=== PATIENT | female | born 1940 | race Caucasian/White ===

== ENCOUNTER 2025-04-05 17:04 | Inpatient (IN) ==
--- NOTE | 2025-04-05 17:34 | Emergency Department Note ---
Impression & Plan Atrial flutter with rapid ventricular response ED Provider Note Provider: Kimani Ortiz MD CHIEF COMPLAINT: Referred HISTORY OF PRESENT ILLNESS: Patient is a 84-year-old female past medical history including GERD, osteoarthritis, hypertension, rheumatoid arthritis, CKD, endometritis presenting here today referred by her outpatient doctor. Patient states over the last week or 2 she had a bit of dizziness although has had dizziness her whole life. Evidently had a syncopal episode a few days ago. Was seen in the [facility] clinic yesterday and diagnosed with atrial flutter. Was prescribed metoprolol but has not taken it yet. Evidently was in contact with the office regarding side effect profile and they referred her here for evaluation given that she has been experiencing some dizziness and had the syncopal event and is on duloxetine. Patient denies significant chest pain or shortness of breath. Maybe a little bit of leg swelling. Denies significant exercise intolerance. Patient again states that her entire life she has had some dizziness at times that has passed out before. Denies feeling dizzy or lightheaded right now of significance. Denies numbness or tingling anywhere. Has not taken any of the metoprolol prescribed yesterday is not on aspirin or other blood thinners. Denies other cardiac issues. Evidently had an endometrial/cervical finding they thought might be cancer but turned out to be an infection that she took antibiotics for last month. PAST MEDICAL HISTORY: As noted above MEDICATIONS: Reviewed home medications but she states she is unsure if she is taken the mall. SOCIAL HISTORY: PHYSICAL EXAM: GENERAL: alert and oriented in no acute distress on stretcher Head: normocephalic and atraumatic EYES: No injection, discharge or icterus. EOMI. NECK: Trachea midline. ENT: Mucous membranes pink and moist. LUNGS: Airway patent. No retractions. Breath sounds clear HEART: Regular tachycardic rate and rhythm. No chest wall tenderness ABDOMEN: Soft and non-tender, without guarding or rebound. SKIN: Acyanotic, warm, dry EXTREMITIES: Without swelling, tenderness or deformity NEUROLOGICAL: No focal deficits. No aphasia. No facial droop or slurred speech. Ambulatory. EK bpm atrial flutter. No PVC. QTc 393. No ST segment elevation or depression. CONTINUOUS CARDIAC MONITORING: was ordered and showed a heart rate of 130s-140 bpm in atrial flutter Patient's laboratory studies and imaging reviewed. Differential includes Premature contractions, electrolyte abnormality, cardiac dysrhythmia, thyroid dysfunction, pulmonary embolism, infection, gastrointestinal, as well as other pathologies. IMPRESSION/MEDICAL DECISION MAKING: Patient appears to be in rapid atrial flutter. Minimal variability with this. Diagnosed with this yesterday and did have a cardiac echo yesterday without evidence of pulmonary hypertension or significant depressed EF at that time. No chest pain or shortness of breath. Relates she has had chronic dizziness and syncope at times and did have a syncopal episode with days ago. Evidently there were some concerns regarding possibly having her on duloxetine and metoprolol. This point she is hypertensive and tachycardic and at her age of 84 I feel the trial of some kind of AV melvin agent is quite reasonable as she will not be able to sustain this kind of elevated heart rate indefinitely. Discussed with her that all medications to control her heart rate can possibly cause dizziness. Basic blood work and troponin is sent. TSH from yesterday is normal. Chest x- ray obtained is does have little swelling of the legs but doubt significant pulmonary edema or fluid overload. 1 view chest x-ray per my review interpretation without evidence significant pulmonary edema, pleural effusion, pneumothorax, or pneumonia. Several doses of IV metoprolol was ordered without much improvement of heart rate. No significant anemia. Minimal leukopenia 3.8. No significant anemia hemoglobin 12. Slight hypokalemia 3.2 but no severe electrolyte abnormalities otherwise noted. Normal magnesium. Normal troponin. Given small amount of potassium supplementation here. Started diltiazem drip to see if this would affect some rate control will bring in given the persistent tachycardia/atrial flutter RVR. Patient is admitted given the persistent tachycardia. Will defer to hospitalist team anticoagulation choice going forward. DIAGNOSIS: Rapid atrial flutter DISPOSITION: Hospitalist will evaluate Patient was agreeable with this plan. Critical Care I have personally spent 31 minutes of critical care time in the direct management of this patient. This includes bedside care, interpretation of diagnostic studies, and testing, discussion with consultants, patient, and family members, and other required patient management activities. These 31 minutes is in excess of all separately billable procedures. Past Med/Surg History Problem List (Updated 04/05/25 @ 17:43 by Kimani Ortiz M.D.) Atrial flutter with rapid ventricular response (Acute) Social History Smoking Status: Never smoker Preferred Language: Hungarian Feels Safe at Home: Yes Allergies Allergies Allergy/AdvReac Type Severity Reaction Status Date / Time latex Allergy Unknown Unknown Unverified 04/05/25 18:35 Sulfa (Sulfonamide Allergy Unknown Unknown Unverified 04/05/25 18:35 Antibiotics) Home Meds Home Medications Medication Instructions Recorded Confirmed adalimumab 40 mg/0.4 mL 40 mg subcut DIRECTED 04/05/25 04/05/25 subcutaneous pen kit (Humira(CF) Pen) amlodipine 5 mg tablet 5 mg PO DAILY 04/05/25 04/05/25 atorvastatin 40 mg tablet 40 mg PO UD 04/05/25 04/05/25 cranberry 1 tab PO DAILY 04/05/25 04/05/25 duloxetine 30 mg capsule,delayed 30 mg PO DAILY 04/05/25 04/05/25 release famotidine 40 mg tablet 40 mg PO DAILY 04/05/25 04/05/25 folic acid 1 mg tablet 1 mg PO DAILY 04/05/25 04/05/25 hydroxyzine HCl 25 mg tablet 50 mg PO DAILY 04/05/25 04/05/25 leflunomide 20 mg tablet (Arava) 20 mg PO DAILY 04/05/25 04/05/25 losartan 50 mg tablet 50 mg PO DAILY 04/05/25 04/05/25 magnesium 1 tab PO DAILY 04/05/25 04/05/25 metoprolol succinate 25 mg 25 mg PO UD 04/05/25 04/05/25 tablet,extended release 24 hr prednisone 5 mg tablet 5 mg PO DAILY PRN Other 04/05/25 04/05/25 Results & Data (ED) Vital Signs Vital Signs - 24 hr 04/05/25 17:06 04/05/25 17:24 04/05/25 17:29 Temperature 36.1 C L Temperature Source Temporal Artery Scan Pulse Rate 139 H 140 H Pulse Rate [Apical] 138 H Pulse Rate from SpO2 Sensor Respiratory Rate 18 13 Respiratory Effort / Characteristics Non-Labored Spontaneous Non-Labored Spontaneous Respiratory Depth Normal Normal Respiratory Pattern Regular Blood Pressure 157/114 H Blood Pressure [Left Arm] 147/111 H Blood Pressure Mean 128 Blood Pressure Mean [Left Arm] 123 Blood Pressure Position [Left Arm] Semi-fowlers Pulse Oximetry 95 95 Oxygen Delivery Method Room Air Room Air Sepsis Recent Fever Within 48 Hours No Sepsis New/Unexplained Change in Mental Status N/A Sepsis Action Taken by Nursing No Action Required 04/05/25 17:41 04/05/25 17:45 04/05/25 17:51 Temperature Temperature Source Pulse Rate 138 H 134 H Pulse Rate [Apical] Pulse Rate from SpO2 Sensor 134 H Respiratory Rate 19 Respiratory Effort / Characteristics Respiratory Depth Respiratory Pattern Blood Pressure 160/118 H 153/123 H Blood Pressure [Left Arm] Blood Pressure Mean 134 Blood Pressure Mean [Left Arm] Blood Pressure Position [Left Arm] Pulse Oximetry 94 Oxygen Delivery Method Room Air Sepsis Recent Fever Within 48 Hours Sepsis New/Unexplained Change in Mental Status Sepsis Action Taken by Nursing 04/05/25 17:57 04/05/25 17:58 04/05/25 18:00 Temperature Temperature Source Pulse Rate 133 H 134 H Pulse Rate [Apical] Pulse Rate from SpO2 Sensor Respiratory Rate 17 Respiratory Effort / Characteristics Respiratory Depth Respiratory Pattern Blood Pressure 147/115 H 142/107 H Blood Pressure [Left Arm] Blood Pressure Mean 113 Blood Pressure Mean [Left Arm] Blood Pressure Position [Left Arm] Pulse Oximetry 94 Oxygen Delivery Method Room Air Sepsis Recent Fever Within 48 Hours Sepsis New/Unexplained Change in Mental Status Sepsis Action Taken by Nursing 04/05/25 18:20 04/05/25 18:21 Temperature Temperature Source Pulse Rate 134 H 130 H Pulse Rate [Apical] Pulse Rate from SpO2 Sensor Respiratory Rate Respiratory Effort / Characteristics Respiratory Depth Respiratory Pattern Blood Pressure 139/109 H Blood Pressure [Left Arm] Blood Pressure Mean Blood Pressure Mean [Left Arm] Blood Pressure Position [Left Arm] Pulse Oximetry Oxygen Delivery Method Sepsis Recent Fever Within 48 Hours Sepsis New/Unexplained Change in Mental Status Sepsis Action Taken by Nursing Laboratory Data 04/05/25 17:27 04/05/25 17:27 Lab Results 04/05/25 Range/Units 17:27 WBC 3.80 L (4.8-10.8) K/ul RBC 4.05 L (4.20-5.40) M/uL Hgb 12.6 (12.0-16.0) g/dl Hct 36.8 L (37.0-47.0) % MCV 90.9 (80.0-100.0) fL MCH 31.1 (25.0-34.0) pg MCHC 34.2 (32.0-36.0) g/dL RDW Std Deviation 42.5 (36.4-46.3) fL RDW Coeff of Titi 12.8 (11.5-14.5) % Plt Count 169 (130-400) K/uL MPV 10.5 (9.4-12.4) fL Immature Gran % (Auto) 0.0 % Neut % (Auto) 37.4 % Lymph % (Auto) 40.3 % [place] % (Auto) 16.8 % Eos % (Auto) 4.2 % Baso % (Auto) 1.3 % Neut # (Auto) 1.42 (1.40-6.50) K/uL Lymph # (Auto) 1.53 (1.20-3.40) K/uL [place] # (Auto) 0.64 H (0.11-0.59) K/uL Eos # (Auto) 0.16 (0.00-0.50) K/uL Baso # (Auto) 0.05 (0.00-0.20) K/uL Immature Gran # (Auto) 0.00 L (0.01-0.20) K/uL PT 10.9 (9.0-12.0) Seconds INR 1.0 (0.9-1.1) APTT 24 (21-31) Seconds PTT Ratio 0.9 Sodium 140 (136-145) mmol/L Potassium 3.2 L (3.5-5.1) mmol/L Chloride 105 (98-107) mmol/L Carbon Dioxide 27 (21-32) mmol/L Anion Gap 8 (3-11) BUN 11 (6-23) mg/dl Creatinine 1.18 (0.6-1.2) mg/dl Est Cr Clr Drug Dosing 31.8 ml/min eGFR 46.12 BUN/Creatinine Ratio 9.3 L (10-20) Glucose 95 (70-99(Fasting)) mg/dl Calcium 9.7 (8.6-10.3) mg/dl Magnesium 1.9 (1.7-2.4) mg/dl Total Bilirubin 0.9 (0.2-1.0) mg/dl AST 17 (13-39) U/L ALT 11 (7-52) U/L Alkaline Phosphatase 52 (34-104) U/L Troponin I High Sens 11.9 (0-14) pg/ml Total Protein 6.6 (6.0-8.3) gm/dl Albumin 4.3 (3.4-5.0) gm/dl Globulin 2.3 L (2.5-4.0) gm/dl Albumin/Globulin Ratio 1.9 (0.9-2) TSH 4.079 (0.300-4.500) uIu/ml Administered Medications Diltiazem HCl 125 mg/ Dextrose 125 mls @ 5 mls/hr IV .Q24H [facility]; Protocol Stop: 05/05/25 18:14 Last Admin: 04/05/25 18:26 Dose: 5 mg/hr, 5 mls/hr Documented By: KIYA Co-signed By: LAZARUS Discontinued Medications Metoprolol Tartrate (Metoprolol Tartrate 1 Mg/Ml Vial) 5 mg IV NOW STA Stop: 04/05/25 17:35 Last Admin: 04/05/25 17:41 Dose: 5 mg Documented By: JILLIAN Metoprolol Tartrate (Metoprolol Tartrate 1 Mg/Ml Vial) 5 mg IV NOW STA Stop: 04/05/25 17:56 Last Admin: 04/05/25 17:58 Dose: 5 mg Documented By: KIYA Miscellaneous (Stat Iv Infusion Titration Per Protocol) 1 each N/A NOW STA Stop: 04/05/25 18:10 Last Admin: 04/05/25 18:26 Dose: Not Given Documented By: KIYA Potassium Chloride (Potassium Chloride Crtab 20 Meq Tabcr) 40 meq PO NOW STA Stop: 04/05/25 18:24 Last Admin: 04/05/25 18:46 Dose: 40 meq Documented By: KIYA Discharge Plan Visit Data Chief Complaint: Abnormal Labs/Diagnostic Testing Stated Complaint: REF, ABN RESULTS ED Provider: Kimani Ortiz Discharge Problem: Atrial flutter with rapid ventricular response Patient Disposition: Being Evaluated by Hospitalist Condition: Fair Forms Stand Alone Forms: [facility] [employer] Prescriptions Prescriptions: No Action losartan 50 mg tablet 50 mg PO DAILY atorvastatin 40 mg tablet 40 mg PO UD Rx Instructions: original: 40mg po daily. per pt she doesnt take medication everyday famotidine 40 mg tablet 40 mg PO DAILY prednisone 5 mg tablet 5 mg PO DAILY PRN (Reason: Other) leflunomide [Arava] 20 mg tablet 20 mg PO DAILY hydroxyzine HCl 25 mg tablet 50 mg PO DAILY Rx Instructions: per pt she taakes 3 metoprolol succinate 25 mg tablet extended release 24 hr 25 mg PO UD Rx Instructions: hasnt started yet and isnt sure she will be taking duloxetine 30 mg capsule,delayed release(DR/EC) 30 mg PO DAILY Humira(CF) Pen 40 mg/0.4 mL pen injector kit 40 mg subcut DIRECTED Rx Instructions: every other tuesday amlodipine 5 mg tablet 5 mg PO DAILY folic acid 1 mg tablet 1 mg PO DAILY cranberry 1 tab PO DAILY magnesium 1 tab PO DAILY Rx Instructions: otc Referrals Referrals: Nikos Muñiz MD [Primary Care Provider] -
[2025-04-05] MEDS: METOPROLOL TARTRATE 1 MG/ML VIAL IV STA ×2 (17:41→17:58)
[2025-04-05 17:55] LABS: Basophils # (auto) 0.05 K/uL (0.00-0.20); Basophils % (auto) 1.3 %; Eosinophils # (auto) 0.16 K/uL (0.00-0.50); Eosinophils % (auto) 4.2 %; Hematocrit (blood only) 36.8 % (37.0-47.0); Hemoglobin 12.6 g/dl (12.0-16.0); Lymphocytes # (auto) 1.53 K/uL (1.20-3.40); Lymphocytes % (auto) 40.3 %; Mean Corpuscular Hemoglobin 31.1 pg (25.0-34.0); Mean Corpuscular Hgb Conc 34.2 g/dL (32.0-36.0); Mean Corpuscular Volume 90.9 fL (80.0-100.0); Mean Platelet Volume 10.5 fL (9.4-12.4); Monocytes # (auto) 0.64 K/uL (0.11-0.59); Monocytes % (auto) 16.8 %; Neutrophils # (auto) 1.42 K/uL (1.40-6.50); Neutrophils % (auto) 37.4 %; Platelet Count 169 K/uL (130-400); RDW Coefficient of Variation 12.8 % (11.5-14.5); RDW Standard Deviation 42.5 fL (36.4-46.3); Red Blood Count 4.05 M/uL (4.20-5.40)
[2025-04-05 18:03] LABS: Partial Thromboplastin Ratio 0.9; Partial Thromboplastin Time 24 Seconds (21-31); Prothrombin Time 10.9 Seconds (9.0-12.0)
[2025-04-05 18:09] LABS: Albumin Globulin Ratio 1.9 (0.9-2); Albumin Level 4.3 gm/dl (3.4-5.0); BUN Creatinine Ratio 9.3 (10-20); Bilirubin,Total 0.9 mg/dl (0.2-1.0); Calcium 9.7 mg/dl (8.6-10.3); Creatinine Clr Calc Pharmacy 31.8 ml/min; Globulin 2.3 gm/dl (2.5-4.0); Magnesium 1.9 mg/dl (1.7-2.4); Potassium 3.2 mmol/L (3.5-5.1); Total Protein 6.6 gm/dl (6.0-8.3)
[2025-04-05 18:14] LABS: Troponin I High Sensitivity 11.9 pg/ml (0-14)
[2025-04-05 18:24] LABS: Thyroid Stimulating Hormone 4.079 uIu/ml (0.300-4.500)
[2025-04-05] MEDS: STAT IV Infusion **Titration per Protocol STA (18:26)
[2025-04-05] MEDS: dilTIAZem HCL 125 MG in DEXTROSE 5% 100 ML IV SCH (18:26)
[2025-04-05] MEDS: POTASSIUM CHLORIDE CRTAB 20 MEQ TABCR PO STA (18:46)
[2025-04-05] MEDS: Heparin IV Adult Wt-Based Standard w/ INITIAL Bolus Protocol IV STA (19:21)
--- NOTE | 2025-04-05 19:28 | XRay Report ---
EXAM: XR chest 1V portable CLINICAL HISTORY: Dysrhythmia, dizzy. TECHNIQUE: An X-ray image of the chest is obtained in AP projection. COMPARISON: No prior studies are available for comparison. FINDINGS: Pulmonary Parenchyma: Bilateral increased vascular markings are likely due to a congestive process. No evidence of consolidation, collapse No evidence of right pleural effusion or pleural thickening. The left costophrenic angle is obscured by the cardiomegaly Heart and Mediastinum: cardiomegaly with congested vascular hilum Bony Thorax: Bony thorax appears intact without fractures or deformities. Soft Tissues: Soft tissues overlying the chest wall are unremarkable. IMPRESSION: Cardiomegaly with Bilateral increased vascular markings likely of a congestive process ,clinical correlation is recommended. Electronically signed by Rufus Newman 04-05-2025 7:28 PM
[2025-04-05] MEDS: METOPROLOL SUCC 25MG EXT REL TAB PO SCH (19:52)
--- NOTE | 2025-04-05 20:01 | History & Physical Report ---
Date of Service April 05, 2025 Assessment & Plan (1) Atrial flutter with rapid ventricular response: (2) HTN (hypertension): (3) HLD (hyperlipidemia): (4) Rheumatoid arthritis: Plan 84 year old F presented to the ED with dizziness and a recent diagnosis of atrial flutter that was discovered yesterday as an outpatient with her PCP. Last week she had a syncopal episode where she awoke in the middle of the night with her and harpreet quickly out of bed and passed out. Additional past medical history includes hypertension, rheumatoid arthritis, CKD stage III, OA and GERD. Reportedly she had a failed stress test years ago and followed with a heart catheterization which she reports was normal about 20 years ago. She denies tobacco and alcohol use. ECHO 04/04/25: EF 65 to 69% with mild aortic valve sclerosis and moderate mitral regurgitation. No leukocytosis, hypokalemic 3.2, normal mag and TSH along with other unremarkable electrolytes. No transaminitis noted. A few weeks ago she did undergo an endometrial biopsy which was negative for malignancy. She was started on a Cardizem drip at 5 mg/h. She was given metoprolol 5 mg IV x 2 and her heart rate remains in the 130s. Heparin drip without bolus was ordered along with metoprolol 25 mg p.o. twice daily. Formal cardiology consult placed. new onset atrial flutter with RVR: Acute New diagnosis 04/04/2025 Echo 04/04/2025; 65 to 69%, mild aortic valve sclerosis, moderate moderate MR Prescribed metoprolol 25 mg p.o. daily; prescription not filled due to concern of home medication adverse reaction per pharmaceutical pamphlet Reports failed stress test greater than 20 years ago with normal heart catheterization Heart rate 130s to 140s in ED serum mag 1.9. Troponin 11.9 Diltiazem drip initiated in ED Metoprolol 5 mg IV x 2 given in ED; ordered metoprolol 25 mg p.o. twice daily Started on heparin drip without bolus N.p.o. after midnight Cardiology consult placed; full code Hypokalemia: Serum potassium 3.2; replaced with 40 p.o. KCl in ED Trend BMP in a.m. HTN: Chronic Takes losartan and amlodipine; hold for now +1 LE edema; suspect related to amlodipine HLD: Chronic Takes atorvastatin; continue Low threshold to discontinue given age versus benefits Rheumatoid arthritis: Chronic Takes Arava; DMARD and follows with rheumatology Disposition: PCP: Dr. Burns CODE STATUS: Full code VTE prophylaxis: Started on heparin drip in ED I spent a total of 79 minutes coordinating, documenting, and providing care for this patient excluding time spent inthe performance of separately billed services or time spent by another provider/QHP. History of Present Illness Chief Complaint: atrial flutter Primary Care Provider: Nikos Muñiz MD Ms. King is an 84 year old female that presented to the ED as she was experiencing dizziness and had a recent diagnosis of atrial flutter Discovered yesterday as an outpatient With her PCP. Last week she had a syncopal episode where she awoke in the middle of the night with her and harpreet quickly out of bed and passed out. Additional past medical history includes hypertension, rheumatoid arthritis, CKD stage III, OA and GERD. Reportedly she had a failed stress test years ago and followed with a heart catheterization which she reports was normal about 20 years ago. She denies tobacco and alcohol use. With her new diagnosis of atrial flutter she was prescribed metoprolol but she has not taken any dosing yet as she read in the medication insert that there could be interactions with her current medication list. An echocardiogram was performed yesterday with an EF 65 to 69% with mild aortic valve sclerosis and moderate mitral regurgitation. In the ED no leukocytosis, hypokalemic 3.2, normal mag and TSH along with other unremarkable electrolytes. No transaminitis noted. A few weeks ago she did undergo an endometrial biopsy which was negative for malignancy. Pt denies CHOWDHURY, SOB, chest pain, abdominal pain or tenderness, dysuria, bowel changes. On examination, she is AAOx4 and able to Hold meaningful conversation without acute or apparent distress. Patient with irregular heart sounds. Lungs without adventitious sounds, some slight swelling +1 lower extremity edema; suspect this is related to her home medication of amlodipine. In the ED she was noted to be in rapid a flutter heart rate 140s. She was started on a Cardizem drip at 5 mg/h. She was given metoprolol 5 mg IV x 2 and her heart rate remains in the 130s. Heparin drip without bolus was ordered along with metoprolol 25 mg p.o. twice daily. Formal cardiology consult placed. Patient will be admitted for further evaluation and management of her new onset A-fib trill flutter. Please see A/P for further details. Allergies Allergy/AdvReac Type Severity Reaction Status Date / Time latex Allergy Unknown Unknown Verified 04/05/25 19:53 Sulfa (Sulfonamide Allergy Unknown Unknown Verified 04/05/25 19:53 Antibiotics) Home Medications Medication Instructions Recorded Confirmed Type adalimumab 40 mg/0.4 mL 40 mg subcut DIRECTED 04/05/25 04/05/25 History subcutaneous pen kit (Humira(CF) Pen) amlodipine 5 mg tablet 5 mg PO DAILY 04/05/25 04/05/25 History atorvastatin 40 mg tablet 40 mg PO UD 04/05/25 04/05/25 History cranberry 1 tab PO DAILY 04/05/25 04/05/25 History duloxetine 30 mg capsule,delayed 30 mg PO DAILY 04/05/25 04/05/25 History release famotidine 40 mg tablet 40 mg PO DAILY 04/05/25 04/05/25 History folic acid 1 mg tablet 1 mg PO DAILY 04/05/25 04/05/25 History hydroxyzine HCl 25 mg tablet 50 mg PO DAILY 04/05/25 04/05/25 History leflunomide 20 mg tablet (Arava) 20 mg PO DAILY 04/05/25 04/05/25 History losartan 50 mg tablet 50 mg PO DAILY 04/05/25 04/05/25 History magnesium 1 tab PO DAILY 04/05/25 04/05/25 History metoprolol succinate 25 mg 25 mg PO UD 04/05/25 04/05/25 History tablet,extended release 24 hr prednisone 5 mg tablet 5 mg PO DAILY PRN Other 04/05/25 04/05/25 History Past Med/Surg History Problem List (Updated 04/05/25 @ 19:53 by MARTIN Malone) Rheumatoid arthritis HLD (hyperlipidemia) HTN (hypertension) OA (osteoarthritis) of hip Atrial flutter with rapid ventricular response (Acute) Surgical History (Updated 04/05/25 @ 19:53 by MARTIN Malone) No pertinent past surgical history Social History Smoking Status: Never smoker Preferred Language: Scottish Feels Safe at Home: Yes Review of Systems Review of Systems: Neuro: (-) Falls, trauma, slurred speech HEENT: (-) CHOWDHURY, dizziness, dysphagia, visual or auditory changes CV: (-) CP, palpitations, swelling Resp: (-) SOB GI: (-) appetite changes, N/V/D, bowel changes : (-) urinary changes Skin: (-) rashes Psych: (-) anxiety, depression Physical Exam Physical Exam: Neuro: AAOx4, PERRLA, no aphagia, memory changes, CNII-XII grossly intact HEENT: head normocephalic, moist mucus membranes CV:Irreguarly irregular (-) M/G/R, (-) edema, cap refill < 3 seconds Resp: Lungs CTA in all fowler. On RA GI: Abdomen S/NT/ND, Ax4 bowel sounds, (-) CVA tenderness Musculoskeletal: 5/5 B/L UE strength, 5/5 B/L LE strength. No gait disturbance Skin: (-) rashes , (-) erythema. Psych: euthymic mood Results & Data Results & Data Vital Signs (Past 12 Hours) Vital Signs Temp Pulse Pulse Resp BP BP Pulse Ox 04/05/25 19:08 130 H 20 137/111 H 04/05/25 18:21 130 H 139/109 H 04/05/25 18:20 134 H 04/05/25 18:00 142/107 H 04/05/25 17:58 134 H 147/115 H 04/05/25 17:57 133 H 17 94 04/05/25 17:51 134 H 19 94 04/05/25 17:45 153/123 H 04/05/25 17:41 138 H 160/118 H 04/05/25 17:29 138 H 13 147/111 H 95 04/05/25 17:24 140 H 04/05/25 17:06 36.1 C L 139 H 18 157/114 H 95 O2 Del Method 04/05/25 19:08 04/05/25 18:21 04/05/25 18:20 04/05/25 18:00 04/05/25 17:58 04/05/25 17:57 Room Air 04/05/25 17:51 Room Air 04/05/25 17:45 04/05/25 17:41 04/05/25 17:29 Room Air 04/05/25 17:24 04/05/25 17:06 Room Air Laboratory Results Short CBC 04/05/25 Range/Units 17:27 WBC 3.80 L (4.8-10.8) K/ul Hgb 12.6 (12.0-16.0) g/dl Hct 36.8 L (37.0-47.0) % Plt Count 169 (130-400) K/uL BMP 04/05/25 17:27 Sodium 140 Potassium 3.2 L Chloride 105 Carbon Dioxide 27 BUN 11 Creatinine 1.18 Glucose 95 Calcium 9.7 Liver Function 04/05/25 Range/Units 17:27 Total Bilirubin 0.9 (0.2-1.0) mg/dl AST 17 (13-39) U/L ALT 11 (7-52) U/L Alkaline Phosphatase 52 (34-104) U/L Albumin 4.3 (3.4-5.0) gm/dl Diagnostic Findings Chest X-Ray 04/05/25 17:14 EXAM: XR chest 1V portable CLINICAL HISTORY: Dysrhythmia, dizzy. TECHNIQUE: An X-ray image of the chest is obtained in AP projection. COMPARISON: No prior studies are available for comparison. FINDINGS: Pulmonary Parenchyma: Bilateral increased vascular markings are likely due to a congestive process. No evidence of consolidation, collapse No evidence of right pleural effusion or pleural thickening. The left costophrenic angle is obscured by the cardiomegaly Heart and Mediastinum: cardiomegaly with congested vascular hilum Bony Thorax: Bony thorax appears intact without fractures or deformities. Soft Tissues: Soft tissues overlying the chest wall are unremarkable. IMPRESSION: Cardiomegaly with Bilateral increased vascular markings likely of a congestive process ,clinical correlation is recommended. Electronically signed by Rufus Newman 04-05-2025 7:28 PM Code Status & VTE Plan Code Status full code in the event of cardiac or respiratory arrest VTE Prophylaxis Plan VTE Prophylaxis will be ordered: Yes Supervising Physician Co-Signing Physician Notes Patient seen and examined independently. Discussed with above provider. Patient presents to the hospital after she was found to have atypical atrial flutter as outpatient. She underwent echocardiogram which showed EF within normal limits. Patient is started on Cardizem drip, heparin drip; plan to obtain cardiology consult in AM. I have reviewed the advanced practitioner's documentation, and I agree with, and take responsibility for the plan of care I spent a total of 30 minutes coordinating, documenting, and providing care for this patient excluding time spent in the performance of separately billed services. All of the aforementioned completed while collaborating with the assigned advanced practitioner for a full treatment plan
[2025-04-05] MEDS: HEPARIN 25000 UNIT/500 ML D5W 25,000 UNITS/500 ML BAG IV SCH ×2 (20:05→20:21)
[2025-04-05] MEDS: HEPARIN SOD (PORCINE) 1000 UNIT/ML IV ONE (20:05)
[2025-04-05] MEDS: Heparin IV Adult Wt-Based Low-Dose *NO* INITIAL Bolus Protocol IV STA (20:05)
[2025-04-05] MEDS ORDERED: MAGNESIUM HYDROXIDE SUSP 30 ML UDC PO PRN (21:59)
[2025-04-05] MEDS ORDERED: ONDANSETRON INJ 2 MG/ML 2 ML VIAL IV PRN (21:59)
[2025-04-05] MEDS ORDERED: POLYETHYLENE (MIRALAX) 17 GM PACK PO PRN (21:59)
[2025-04-05] MEDS ORDERED: ALUMINUM/MAGNESIUM SUSP 30 ML UDC PO PRN (21:59)
[2025-04-06 03:06] LABS: ANTI-Xa, UFH(UnfractionatedHep 0.34 IU/ml (0.3-0.7)
[2025-04-06 06:30] LABS: Hematocrit (blood only) 35.9 % (37.0-47.0); Hemoglobin 12.2 g/dl (12.0-16.0); Mean Corpuscular Hemoglobin 30.7 pg (25.0-34.0); Mean Corpuscular Volume 90.2 fL (80.0-100.0); Mean Platelet Volume 10.5 fL (9.4-12.4); Platelet Count 148 K/uL (130-400); RDW Coefficient of Variation 12.8 % (11.5-14.5); RDW Standard Deviation 42.5 fL (36.4-46.3); Red Blood Count 3.98 M/uL (4.20-5.40); White Blood Count 3.14 K/ul (4.8-10.8)
[2025-04-06 07:14] LABS: ANTI-Xa, UFH(UnfractionatedHep 0.38 IU/ml (0.3-0.7)
[2025-04-06 07:15] LABS: BUN Creatinine Ratio 9.8 (10-20); Calcium 9.1 mg/dl (8.6-10.3); Creatinine Clr Calc Pharmacy 36.6 ml/min; Magnesium 1.9 mg/dl (1.7-2.4); Potassium 3.6 mmol/L (3.5-5.1)
--- NOTE | 2025-04-06 08:41 | Cardiology Consultation ---
Date of Consultation April 06, 2025 Assessment & Plan (1) Atrial flutter with rapid ventricular response: (2) HTN (hypertension): Plan Patient admitted with atrial flutter rapid ventricular response. Duration unknown. Initially treated with IV Lopressor and IV diltiazem with improved heart rates Since admission. She was transition to metoprolol succinate 25 mg twice daily. Started on IV heparin for stroke prophylaxis [id number] score 4 (Female, age, HTN). anticoagulation therapy recommended. Likely transition to Eliquis 5 mg BID. Recent echo on 04/04 with preserved LVEF, moderate MR. No indication to repeat at this time. Replace potassium for goal 4-5. Additional supplements received this morning. Replace magnesium goal of 2.0. 1 gram ordered now. HR's are fairly well controlled at rest. Continue metoprolol succinate 25 mg BID. Titrate as needed/tolerated. If HR's remain controlled, and patient asymptomatic, would anticipate patient could be discharged on metoprolol and Eliquis. Consider cardioversion after 4 weeks of anticoagulation therapy, vs ongoing rate control strategy. In regards to HTN, amlodipine and losartan held on admission when she was receiving IV diltiazem and initiation of metoprolol Would likely resume losartan on discharge. Could hold amlodipine if needed. Further recommendations pending review and discussion with Dr. Montejo Case discussed with Dr. Montejo I spent a total of 60 minutes on the date of service in preparation, delivery, and documentation of the care provided to this patient, excluding any time spent in the performance of separately billed services. Claudia Valdez PA-C Department of Cardiology, [facility] This chart was completed in part utilizing Speech Voice Recognition Software. Grammatical errors, random word insertions, pronoun errors, and incomplete sentences are an occasional consequence of this system due to software limitations, ambient noise, and hardware issues. Any formal questions or concerns about the content, text, or information contained within the body of this dictation should be directly addressed to the provider for clarification. Supervising Physician Co-Signing Physician Notes Attending attestation: Case reviewed with the advanced practitioner. I have personally performed a history and physical examination on the patient. I have reviewed the advanced practitioner's documentation on the date of service referenced in note, and I agree with, and take responsibility for the plan of care. Atrial fibrillation persists on telemetry. Rate improved. Diltiazem discontinued. Patient without overt recognition of being in atrial fibrillation. Will transition from heparin to Eliquis this evening at 2100. Continue metoprolol for rate control. Case discussed with Dr. Shepherd for the purpose of coordination of care. I spent a total of 20 minutes coordinating, documenting, and providing care for this patient excluding time spent in the performance of separately billed services or time spent by another provider. Josue Montejo, History of Present Illness Reason for Consultation: new onset atrial flutter [facility]ing Physician[facility] Attending Physician: Dr. Montejo History of Present Illness Patient is an 84-year-old female who presented to [facility] at the direction of her PCP office with [facility] due to findings of atrial fibrillation rapid ventricular response on recent echocardiogram and EKG as an outpatient. Initially patient was started on metoprolol but had not yet picked up prescription when she was referred to ER. Echo was ordered after patient had a syncopal episode several weeks. Patient described a long history of dizziness and "fainting" dating back to when she was young. This was not new for her, but echo was ordered as precaution. Patient had an echo on 04/04/2025 at [facility] which demonstrated normal LV systolic function with ejection fraction 65%, Mild aortic sclerosis without stenosis, moderate mitral regurgitation, no pulmonary hypertension. Patient was in atrial fibs/flutter at a rate of 140 during the study. She also had an EKG on 04/04 at [facility] demonstrating Atrial flutter with rapid ventricular response at 138 bpm. Patient denies a history of cardiovascular problems.No history of coronary artery disease, heart failure, arrhythmias, or valvular disease. History includes: Hypertension Dyslipidemia Rheumatoid arthritis On Humira Polymyalgia rheumatica Chronic kidney disease for which she follows with nephrology, Baseline creatinine 1.1-1.2 Upon arrival to the emergency room on 04/05/2025, patient was found to be in persistent atrial flutter at a rate of 140 bpm, similar to outpatient testing on 04/04/2025. She was started on IV heparin for anticoagulation and stroke prophylaxis. She was initially treated with IV Lopressor and then started on IV diltiazem for rate control. Heart rates greatly improved with IV diltiazem and once heart rates were below 100 bpm, IV diltiazem was turned off. She was also started on metoprolol succinate 25 mg twice daily. Potassium was low at 3.2 on arrival, potassium supplemented. Potassium remains low normal this morning at 3.6. She was given additional potassium this morning on 04/06. Magnesium was also slightly low at 1.9. HS troponin negative. She was hypertensive on arrival, BP trending down this morning. She normally takes amlodipine and losartan. These were held on arrival. At time of consult, patient resting in chair comfortably. HR's 80-110's She is asymptomatic with the afib. She denies recent chest pain or SOB. She notes dizziness at times, but feels this is relatively unchanged. Last syncopal episode was approx 2 weeks ago, but also apparently fairly frequent during her life. Allergies Allergy/AdvReac Type Severity Reaction Status Date / Time latex Allergy Unknown Unknown Verified 04/05/25 19:53 Sulfa (Sulfonamide Allergy Unknown Unknown Verified 04/05/25 19:53 Antibiotics) Home Medications Medication Instructions Recorded Confirmed Type adalimumab 40 mg/0.4 mL 40 mg subcut DIRECTED 04/05/25 04/05/25 History subcutaneous pen kit (Humira(CF) Pen) amlodipine 5 mg tablet 5 mg PO DAILY 04/05/25 04/05/25 History atorvastatin 40 mg tablet 40 mg PO UD 04/05/25 04/05/25 History cranberry 1 tab PO DAILY 04/05/25 04/05/25 History duloxetine 30 mg capsule,delayed 30 mg PO DAILY 04/05/25 04/05/25 History release famotidine 40 mg tablet 40 mg PO DAILY 04/05/25 04/05/25 History folic acid 1 mg tablet 1 mg PO DAILY 04/05/25 04/05/25 History hydroxyzine HCl 25 mg tablet 50 mg PO DAILY 04/05/25 04/05/25 History leflunomide 20 mg tablet (Arava) 20 mg PO DAILY 04/05/25 04/05/25 History losartan 50 mg tablet 50 mg PO DAILY 04/05/25 04/05/25 History magnesium 1 tab PO DAILY 04/05/25 04/05/25 History metoprolol succinate 25 mg 25 mg PO UD 04/05/25 04/05/25 History tablet,extended release 24 hr prednisone 5 mg tablet 5 mg PO DAILY PRN Other 04/05/25 04/05/25 History Patient History Surgical History (Updated 04/05/25 @ 19:53 by MARTIN Malone) No pertinent past surgical history Social History Smoking Status: Never smoker Hx Alcohol Use: No Hx Substance Use: No Preferred Language: Amharic Communication Ability: Effective Lab Aid Required: No Beliefs That Will Affect Care: None Current Living Situation: Spouse Feels Safe at Home: Yes Safety Concerns: Feels Safe At This Time Assistive Devices: Glasses Review of Systems Review of Systems: All systems reviewed & are unremarkable except as noted in HPI & below Physical Exam Constitutional: WD/WN, vitals as above average body habitus; no acute distress Neck: trachea midline, no thyromegaly Respiratory: normal respiratory effort, lungs clear to auscultation Cardiovascular: Rate/Rhythm: + irregularly irregular Heart Sounds: no murmur Vessels: no JVD Extremities: no edema Gastrointestinal (Abdomen): normal bowel sounds, soft, nontender, no hepatosplenomegaly Musculoskeletal: no cyanosis or clubbing, extremities motor strength 5/5 Neurologic: PERRL, EOMI, accommodation nl, no face palsy, no dysarthria Results & Data Vital Signs (Past 12 Hours) Vital Signs Temp Pulse Pulse Resp BP BP BP 04/06/25 07:51 36.4 C L 62 16 129/83 04/06/25 07:27 65 04/06/25 03:58 36.6 C 68 17 135/97 04/06/25 00:20 121 H 04/05/25 23:51 36.6 C 64 17 118/78 04/05/25 22:00 36.8 C 115 H 18 146/108 H 04/05/25 21:19 110 H 04/05/25 21:03 112 H 20 137/99 Pulse Ox O2 Del Method 04/06/25 07:51 93 Room Air 04/06/25 07:27 04/06/25 03:58 93 Room Air 04/06/25 00:20 04/05/25 23:51 93 Room Air 04/05/25 22:00 92 Room Air 04/05/25 21:19 04/05/25 21:03 96 Room Air Laboratory Results Cardiac Enzymes 04/05/25 Range/Units 17:27 AST 17 (13-39) U/L Troponin I High Sens 11.9 (0-14) pg/ml Coagulation 04/05/25 Range/Units 17:27 PT 10.9 (9.0-12.0) Seconds APTT 24 (21-31) Seconds CBC 04/05/25 04/06/25 Range/Units 17:27 06:17 WBC 3.80 L 3.14 L (4.8-10.8) K/ul RBC 4.05 L 3.98 L (4.20-5.40) M/uL Hgb 12.6 12.2 (12.0-16.0) g/dl Hct 36.8 L 35.9 L (37.0-47.0) % Plt Count 169 148 (130-400) K/uL Neut # (Auto) 1.42 (1.40-6.50) K/uL Lymph # (Auto) 1.53 (1.20-3.40) K/uL [place] # (Auto) 0.64 H (0.11-0.59) K/uL Eos # (Auto) 0.16 (0.00-0.50) K/uL Baso # (Auto) 0.05 (0.00-0.20) K/uL Comprehensive Metabolic Panel 04/05/25 04/06/25 Range/Units 17:27 06:17 Sodium 140 139 (136-145) mmol/L Potassium 3.2 L 3.6 (3.5-5.1) mmol/L Chloride 105 107 (98-107) mmol/L Carbon Dioxide 27 25 (21-32) mmol/L BUN 11 10 (6-23) mg/dl Creatinine 1.18 1.02 (0.6-1.2) mg/dl Glucose 95 100 H (70-99(Fasting)) mg/dl Calcium 9.7 9.1 (8.6-10.3) mg/dl AST 17 (13-39) U/L ALT 11 (7-52) U/L Alkaline Phosphatase 52 (34-104) U/L Total Protein 6.6 (6.0-8.3) gm/dl Albumin 4.3 (3.4-5.0) gm/dl Intake and Output 04/05/25 04/06/25 04/06/25 22:59 06:59 14:59 Intake Total 59.833 / 59.833 138.667 / 138.667 Balance 59.833 / 59.833 138.667 / 138.667 Intake: IV 59.833 / 59.833 138.667 / 138.667 Heparin 28500 Unit/500 ml D5w 138.667 / 138.667 25,000 units In 500 ml @ 650 UNITS/HR 13 mls/hr IV .Q24H MITESH Rx#:[id number] dilTIAZem HCL 125 mg In 59.833 / 59.833 Dextrose 5% 100 ml @ 5 MG/HR 5 mls/hr IV .Q24H MITESH Rx#: [id number] Other: # Unmeasured Voids 1 Weight 66.6 kg 68.1 kg Weight Measurement Method [facility] Diagnostic Findings Telemetry reviewed: Atrial fib/flutter with variable rates in the 60-130's. She is rate controlled at rest, HR's increase with ambulation EKG reviewed from 04/05/2025 at 1720: Atrial flutter with rapid ventricular response at 140 bpm EKG reviewed from 04/06/2025 at 6:33 AM Atrial fibrillation/flutter with borderline slow ventricular rates Outpatient echo report reviewed dated 04/04/25 Interpretation Summary Patient tachycardic during the study rate 140 beats per minute possibly atrial fibrillation/flutter The left ventricular cavity size is normal. The LV wall thickness is borderline increased (concentric). The left ventricular wall motion is normal. The qualitative LV ejection fraction is 65-69% (normal). The left atrium is moderately enlarged. Mild aortic valve sclerosis is present. Moderate mitral regurgitation is present. Mild tricuspid regurgitation is present. There is no evidence of pulmonary hypertension. Medications Administered Current Inpatient Medications Acetaminophen (Acetaminophen 325 Mg Tab) 650 mg PO Q4H PRN PRN Reason: Pain or Fever Stop: 05/05/25 21:58 Al Hydrox/Mg Hydrox/Simethicone (Aluminum/Magnesium Susp 30 Ml Udc) 15 ml PO Q4H PRN PRN Reason: Dyspepsia Stop: 05/05/25 21:58 Atorvastatin Calcium (Atorvastatin 40 Mg Tab) 40 mg PO DAILY [facility] Stop: 05/06/25 08:59 Duloxetine HCl (Duloxetine Hcl 30 Mg Cap) 30 mg PO DAILY [facility] Stop: 05/06/25 08:59 Last Admin: 04/06/25 09:52 Dose: 30 mg Famotidine (Famotidine 40 Mg Tablet) 40 mg PO DAILY [facility] Stop: 05/06/25 08:59 Last Admin: 04/06/25 09:57 Dose: 40 mg Hydroxyzine HCl (Hydroxyzine Hcl 25 Mg Tab) 50 mg PO DAILY [facility] Stop: 05/06/25 08:59 Diltiazem HCl 125 mg/ Dextrose 125 mls @ 0 mls/hr IV .Q0M [facility]; Protocol Stop: 05/05/25 18:14 Last Titration: 04/06/25 06:24 Dose: 0 mg/hr, 0 mls/hr Heparin Sodium/Dextrose (Heparin 04951 Unit/500 Ml D5w) 25,000 units in 500 mls @ 13 mls/hr IV .Q24H [facility]; Protocol Stop: 05/05/25 19:59 Last Titration: 04/06/25 07:01 Dose: 650 units/hr, 13 mls/hr Leflunomide (Leflunomide 10 Mg Tab) 20 mg PO DAILY [facility] Stop: 05/06/25 08:59 Last Admin: 04/06/25 09:52 Dose: 20 mg Magnesium Hydroxide (Magnesium Hydroxide Susp 30 Ml Udc) 30 ml PO Q12H PRN PRN Reason: Constipation Stop: 05/05/25 21:58 Metoprolol Succinate (Metoprolol Succ 25mg Ext Rel Tab) 25 mg PO BID [facility] Stop: 05/05/25 19:09 Last Admin: 04/06/25 09:53 Dose: 25 mg Ondansetron HCl (Ondansetron Inj 2 Mg/Ml 2 Ml Vial) 4 mg IV Q6H PRN PRN Reason: Nausea Stop: 05/05/25 21:58 Polyethylene Glycol (Polyethylene (Miralax) 17 Gm Pack) 17 gm PO DAILY PRN PRN Reason: Constipation Stop: 05/05/25 21:58 (2) HTN (hypertension) Hypertension type: primary hypertension Qualified Code(s): I10 - Essential (primary) hypertension
[2025-04-06] MEDS: POTASSIUM CHLORIDE CRTAB 20 MEQ TABCR PO STA (09:51)
[2025-04-06] MEDS: DULoxetine HCL 30 MG CAP PO SCH (09:52)
[2025-04-06] MEDS: LEFLUNOMIDE 10 MG TAB PO SCH (09:52)
[2025-04-06] MEDS: FAMOTIDINE 40 MG TABLET PO SCH (09:57)
[2025-04-06] MEDS ORDERED: Nursing to Pharmacy Communication SCH (10:15)
[2025-04-06] MEDS: ATORVASTATIN 40 MG TAB PO SCH ×2 (11:11→20:35)
[2025-04-06] MEDS: hydrOXYzine HCl 25 MG TAB PO SCH ×2 (11:11→20:35)
[2025-04-06] MEDS: MAGNESIUM SULFATE / D5W 1 GM/100 ML BAG IV ONE (11:28)
--- NOTE | 2025-04-06 12:13 | Hospitalist Progress Note ---
Date of Service April 06, 2025 Assessment & Plan (1) Atrial flutter with rapid ventricular response: Plan: 84 year old F presented to the ED with dizziness and a recent diagnosis of atrial flutter that was discovered yesterday as an outpatient with her PCP. Last week she had a syncopal episode where she awoke in the middle of the night with her and harpreet quickly out of bed and passed out. Additional past medical history includes hypertension, rheumatoid arthritis, CKD stage III, OA and GERD. Reportedly she had a failed stress test years ago and followed with a heart catheterization which she reports was normal about 20 years ago. She denies tobacco and alcohol use. ECHO 04/04/25: EF 65 to 69% with mild aortic valve sclerosis and moderate mitral regurgitation. No leukocytosis, hypokalemic 3.2, normal mag and TSH along with other unremarka ble electrolytes. No transaminitis noted. A few weeks ago she did undergo an endometrial biopsy which was negative for malignancy. She was started on a Cardizem drip at 5 mg/h. She was given metoprolol 5 mg IV x 2 and her heart rate remains in the 130s. Heparin drip without bolus was ordered along with metoprolol 25 mg p.o. twice daily. Formal cardiology consult placed. New onset atrial flutter with RVR: Now in atrial fibrillation Acute New diagnosis 04/04/2025 Echo 04/04/2025; 65 to 69%, mild aortic valve sclerosis, moderate moderate MR Prescribed metoprolol 25 mg p.o. daily; prescription not filled due to concern of home medication adverse reaction per pharmaceutical pamphlet Reports failed stress test greater than 20 years ago with normal heart catheterization Heart rate 130s to 140s in ED Serum mag 1.9. Troponin 11.9 Started with intravenous diltiazem in the emergency room and the rate was controlled and later on diltiazem was discontinued Metoprolol 5 mg IV x 2 given in ED; ordered metoprolol 25 mg p.o. twice daily Started on heparin drip without bolus Appreciate cardiology input and recommendation Eliquis has been started and heparin will be discontinued Continue with metoprolol 25 mg twice daily Will have outpatient cardio conversion in about 4 to 6 weeks as per pharmaceutical scientist Syncopal episode Happened to be last week at home in the middle of the night Likely secondary to postural hypotension Will monitor in the hospital Will get orthostasis (2) HTN (hypertension): (3) HLD (hyperlipidemia): (4) Rheumatoid arthritis: Plan Hypokalemia: Serum potassium 3.2; replaced with 40 p.o. KCl in ED Potassium level is 3.6 but will give 40 mill equivalent of potassium p.o. to maintain it HTN: Chronic Takes losartan and amlodipine; hold for now +1 LE edema; suspect related to amlodipine HLD: Chronic Takes atorvastatin; continue Low threshold to discontinue given age versus benefits Rheumatoid arthritis: Chronic Takes Arava; DMARD and follows with rheumatology No acute arthritis involving any of the joints VTE prophylaxis: Started on heparin drip in ED Eliquis has been started and heparin discontinued Disposition: PCP: Dr. Burns CODE STATUS: Full code Admission and Anticipated Discharge Date Admission Date: April 05, 2025 Subjective , 04/06/2025 The patient was seen and examined in telemetry unit She was admitted with a flutter with exertional shortness of breath and chest discomfort Has been feeling a lot better since admission Now in atrial fibrillation and the rate is controlled denies any significant symptoms Review of Systems Review of Systems: All systems reviewed and are unremarkable except as noted below Physical Exam Physical Exam: Sitting on a chair without any acute distress Constitutional: + ill appearing and average body habitus Eyes: PERRL, conjunctivae normal, anicteric sclerae ENMT: external ear and nose normal, oropharynx normal Neck: trachea midline, no thyromegaly Respiratory: no respiratory distress Auscultation: lungs clear to auscultation bilaterally ( minimal crackles at the bases) Cardiovascular: Rate/Rhythm: + irregularly irregular; not tachycardic Heart Sounds: normal S1, normal S2 and + murmur Extremities: no edema Gastrointestinal (Abdomen): Inspection/Auscultation: normal bowel sounds; abdomen not distended Percussion/Palpation: abdomen soft; abdomen nontender Musculoskeletal: Has minimal osteoarthritis/rheumatoid changes but no acute arthritis involving any of the joint Neurologic: normal touch/pain/proprioception and moves all extremities; no focal motor deficits Lymphatic: no cervical or axillary lymphadenopathy Results & Data Results & Data Vital Signs (Past 12 Hours) Vital Signs Temp Pulse Pulse Resp BP Pulse Ox O2 Del Method 04/06/25 07:51 36.4 C L 62 16 129/83 93 Room Air 04/06/25 07:27 65 04/06/25 03:58 36.6 C 68 17 135/97 93 Room Air 04/06/25 00:20 121 H Laboratory Results Short CBC 04/05/25 04/06/25 Range/Units 17:27 06:17 WBC 3.80 L 3.14 L (4.8-10.8) K/ul Hgb 12.6 12.2 (12.0-16.0) g/dl Hct 36.8 L 35.9 L (37.0-47.0) % Plt Count 169 148 (130-400) K/uL BMP 04/05/25 04/06/25 17:27 06:17 Sodium 140 139 Potassium 3.2 L 3.6 Chloride 105 107 Carbon Dioxide 27 25 BUN 11 10 Creatinine 1.18 1.02 Glucose 95 100 H Calcium 9.7 9.1 Liver Function 04/05/25 Range/Units 17:27 Total Bilirubin 0.9 (0.2-1.0) mg/dl AST 17 (13-39) U/L ALT 11 (7-52) U/L Alkaline Phosphatase 52 (34-104) U/L Albumin 4.3 (3.4-5.0) gm/dl Medications Administered Current Inpatient Medications Acetaminophen (Acetaminophen 325 Mg Tab) 650 mg PO Q4H PRN PRN Reason: Pain or Fever Stop: 05/05/25 21:58 Al Hydrox/Mg Hydrox/Simethicone (Aluminum/Magnesium Susp 30 Ml Udc) 15 ml PO Q4H PRN PRN Reason: Dyspepsia Stop: 05/05/25 21:58 Apixaban (Apixaban 5 Mg Tablet) 5 mg PO BID [facility] Stop: 05/06/25 20:59 Atorvastatin Calcium (Atorvastatin 40 Mg Tab) 40 mg PO HS [facility] Stop: 05/06/25 20:59 Duloxetine HCl (Duloxetine Hcl 30 Mg Cap) 30 mg PO DAILY [facility] Stop: 05/06/25 08:59 Last Admin: 04/06/25 09:52 Dose: 30 mg Famotidine (Famotidine 40 Mg Tablet) 40 mg PO DAILY [facility] Stop: 05/06/25 08:59 Last Admin: 04/06/25 09:57 Dose: 40 mg Hydroxyzine HCl (Hydroxyzine Hcl 25 Mg Tab) 50 mg PO HS [facility] Stop: 05/06/25 20:59 Diltiazem HCl 125 mg/ Dextrose 125 mls @ 0 mls/hr IV .Q0M [facility]; Protocol Stop: 05/05/25 18:14 Last Titration: 04/06/25 06:24 Dose: 0 mg/hr, 0 mls/hr Heparin Sodium/Dextrose (Heparin 16494 Unit/500 Ml D5w) 25,000 units in 500 mls @ 13 mls/hr IV .Q24H [facility]; Protocol Stop: 04/06/25 20:59 Last Titration: 04/06/25 07:01 Dose: 650 units/hr, 13 mls/hr Magnesium Sulfate/Dextrose (Magnesium Sulfate / D5w) 1 gm in 100 mls @ 50 mls/hr IV ONE ONE Stop: 04/06/25 12:44 Last Admin: 04/06/25 11:28 Dose: 50 mls/hr Leflunomide (Leflunomide 10 Mg Tab) 20 mg PO DAILY [facility] Stop: 05/06/25 08:59 Last Admin: 04/06/25 09:52 Dose: 20 mg Magnesium Hydroxide (Magnesium Hydroxide Susp 30 Ml Udc) 30 ml PO Q12H PRN PRN Reason: Constipation Stop: 05/05/25 21:58 Metoprolol Succinate (Metoprolol Succ 25mg Ext Rel Tab) 25 mg PO BID [facility] Stop: 05/05/25 19:09 Last Admin: 04/06/25 09:53 Dose: 25 mg Miscellaneous (Heparin Drip- Stop Order) 1 each N/A 2058 ONE Stop: 04/06/25 21:00 Ondansetron HCl (Ondansetron Inj 2 Mg/Ml 2 Ml Vial) 4 mg IV Q6H PRN PRN Reason: Nausea Stop: 05/05/25 21:58 Polyethylene Glycol (Polyethylene (Miralax) 17 Gm Pack) 17 gm PO DAILY PRN PRN Reason: Constipation Stop: 05/05/25 21:58 (2) HTN (hypertension) Hypertension type: primary hypertension Qualified Code(s): I10 - Essential (primary) hypertension
[2025-04-06] MEDS: METOPROLOL TARTRATE 1 MG/ML VIAL IV PRN (17:03)
[2025-04-06] MEDS: APIXABAN 5 MG TABLET PO SCH (20:34)
[2025-04-06] MEDS: HEPARIN DRIP- STOP ORDER ONE (20:34)
[2025-04-07 06:49] LABS: BUN Creatinine Ratio 10.8 (10-20); Calcium 9.1 mg/dl (8.6-10.3); Creatinine Clr Calc Pharmacy 33.6 ml/min; Magnesium 2.2 mg/dl (1.7-2.4); Phosphorus 2.9 mg/dl (2.5-4.9); Potassium 4.2 mmol/L (3.5-5.1)
[2025-04-07] MEDS: FOLIC ACID 1 MG TAB PO SCH (07:48)
[2025-04-07 09:25] LABS: ANTI-Xa, UFH(UnfractionatedHep 0.83 IU/ml (0.3-0.7)
[2025-04-07] MEDS: METOPROLOL SUCC 25MG EXT REL TAB PO ONE (09:46)
--- NOTE | 2025-04-07 12:15 | Hospitalist Progress Note ---
Date of Service April 07, 2025 Assessment & Plan (1) Atrial flutter with rapid ventricular response: (2) HTN (hypertension): (3) HLD (hyperlipidemia): (4) Rheumatoid arthritis: Plan 84 year old F presented to the ED with dizziness and a recent diagnosis of atrial flutter that was discovered yesterday as an outpatient with her PCP. Last week she had a syncopal episode where she awoke in the middle of the night with her and harpreet quickly out of bed and passed out. On presentation to the ED she was found to have in a flutter; was started on Cardizem drip and referred for admission. Atrial flutter with RVR Patient presents with Atrial flutter with rapid ventricular rate Echo 04/04/2025; 65 to 69%, mild aortic valve sclerosis, moderate moderate MR Patient was started on Cardizem drip and heparin drip; referred for admission. Patient currently on metoprolol succinate 50 mg twice daily and Eliquis for stroke prophylaxis. Telemetry shows ventricular rate varying from 80s to 130s; continue monitor on telemetry Hypokalemia: Repleted HTN: Chronic Takes losartan and amlodipine; hold for now +1 LE edema; suspect related to amlodipine Monitor HLD: Takes atorvastatin; continue Rheumatoid arthritis: Chronic Takes Arava; DMARD and follows with rheumatology No acute arthritis involving any of the joints VTE prophylaxis: Eliquis Disposition: PCP: Dr. Burns CODE STATUS: Full code Time spent evaluating patient, direct bedside care, chart review, placing orders, interpretation of diagnostic studies, discussion with consultants, patient, and family members, as well as other required patient management activities is 50 minutes Please note the above document was generated using voice recognition software. It may contain grammatical, syntax or spelling errors. Any formal questions or concerns about the content, text or information contained within the body of this dictation should be directly addressed to the provider for clarification Admission and Anticipated Discharge Date Admission Date: April 05, 2025 Subjective Patient seen and examined at bedside. She reports that she does not feel any palpitation, chest pain, dizziness or lightheadedness. Telemetry shows atrial fibrillation with ventricular rate in 80s to 130s Review of Systems Review of Systems: All systems reviewed & are unremarkable except as noted in Subjective Physical Exam Physical Exam: Constitutional: WD/WN, vitals as above, NAD, sitting up in bed, pleasant, conversing easily Respiratory: normal respiratory effort, lungs clear to auscultation, no wheeze, rales, rhonchi. Normal insp/exp effort, no accessory muscle use Cardiovascular: irregular, no murmur, no edema Vessels: no JVD or carotid bruit Chest: normal inspection of chest Abdomen: normal bowel sounds, soft, nontender, no hepatosplenomegaly Musculoskeletal: no cyanosis or clubbing, extremities motor strength 5/5 Skin: no rashes, warm and dry normal turgor Neurologic: PERRL, EOMI, accommodation nl, no face palsy, no dysarthria CN's II- XI intact bilaterally and moves all extremities Psychiatric: A+Ox3, euthymic affect Results & Data Results & Data Vital Signs (Past 12 Hours) Vital Signs Temp Pulse Pulse Resp BP Pulse Ox O2 Del Method 04/07/25 11:15 36.6 C 130 H 18 130/90 93 Room Air 04/07/25 07:39 36.4 C L 121 H 20 119/84 94 Room Air 04/07/25 07:22 89 04/07/25 03:00 36.7 C 123 H 18 135/90 96 Room Air 04/07/25 00:15 36.5 C 127 H 18 103/76 95 Room Air (2) HTN (hypertension) Hypertension type: primary hypertension Qualified Code(s): I10 - Essential (primary) hypertension
--- NOTE | 2025-04-07 12:37 | Cardiology Progress Note ---
Date of Service April 07, 2025 Assessment & Plan (1) Atrial flutter with rapid ventricular response: (2) HTN (hypertension): Plan 04/06/25 Patient admitted with atrial flutter rapid ventricular response. Duration unknown. Initially treated with IV Lopressor and IV diltiazem with improved heart rates Since admission. She was transition to metoprolol succinate 25 mg twice daily. Started on IV heparin for stroke prophylaxis [id number] score 4 (Female, age, HTN). anticoagulation therapy recommended. Likely transition to Eliquis 5 mg BID. Recent echo on 04/04 with preserved LVEF, moderate MR. No indication to repeat at this time. Replace potassium for goal 4-5. Additional supplements received this morning. Replace magnesium goal of 2.0. 1 gram ordered now. HR's are fairly well controlled at rest. Continue metoprolol succinate 25 mg BID. Titrate as needed/tolerated. If HR's remain controlled, and patient asymptomatic, would anticipate patient could be discharged on metoprolol and Eliquis. Consider cardioversion after 4 weeks of anticoagulation therapy, vs ongoing rate control strategy. In regards to HTN, amlodipine and losartan held on admission when she was receiving IV diltiazem and initiation of metoprolol Would likely resume losartan on discharge. Could hold amlodipine if needed. 04/07/25 Patient with persistent atrial flutter with variable rates Since stopping IV diltiazem yesterday, her HR's have trended upwards and more tachycardic. Increase metoprolol to 50 mg BID today. She remains asymptomatic. Eliquis initiated at 5 mg BID for stroke prophylaxis. Hopefully we can get her HR's improved with BB therapy and then consider DCCV in 4 weeks after apprioriate anticoagualtion. However, if HR's do not improve with BB, there is a chance she will require RAJAN/CV prior to discharge Tuesday. She is not eager to pursue this option given that she is asymptomatic, however it may be difficult to get her HR's down with this flutter. Further recommendations pending review and discussion with Dr. Montejo Case discussed with Dr. Montejo I spent a total of 30 minutes on the date of service in preparation, delivery, and documentation of the care provided to this patient, excluding any time spent in the performance of separately billed services. Claudia Valdez PA-C Department of Cardiology, [facility] This chart was completed in part utilizing Speech Voice Recognition Software. Grammatical errors, random word insertions, pronoun errors, and incomplete sentences are an occasional consequence of this system due to software limitations, ambient noise, and hardware issues. Any formal questions or concerns about the content, text, or information contained within the body of this dictation should be directly addressed to the provider for clarification. Admission and Anticipated Discharge Date Admission Date: April 05, 2025 Supervising Physician Co-Signing Physician Notes Attending attestation: Case reviewed with the advanced practitioner. I have personally performed a history and physical examination on the patient. I have reviewed the advanced practitioner's documentation on the date of service referenced in note, and I agree with, and take responsibility for the plan of care. Patient is asymptomatic with exception of chronic dizziness. Off of IV diltiazem, telemetry reveals ongoing atrial flutter with rates ranging anywhere from 80 to 140 bpm. Most recent heart rate was 130 bpm. She was transition from heparin to Eliquis on 04/06/2025 and is tolerating that well. Plan: * Increase metoprolol succinate to 50 mg twice daily * Continue Eliquis * N.p.o. after midnight for tentative RAJAN cardioversion tomorrow. I spent a total of 20 minutes coordinating, documenting, and providing care for this patient excluding time spent in the performance of separately billed services or time spent by another provider. Josue Montejo, DO Subjective Patient resting in the bed feeling well this morning she is unaware of palpitations or tachypalpitations. Unfortunately her heart rate remains wildly variable with heart rates ranging in the 80s to 130s. Pain or unusual shortness of breath. She admits to dizziness but this is unchanged and a chronic issue for her. Review of Systems Review of Systems: All systems reviewed & are unremarkable except as noted in HPI & below Physical Exam Constitutional: WD/WN, vitals as above average body habitus; no acute distress Neck: trachea midline, no thyromegaly Respiratory: normal respiratory effort, lungs clear to auscultation Cardiovascular: Rate/Rhythm: + irregularly irregular Heart Sounds: no murmur Vessels: no JVD Extremities: no edema Gastrointestinal (Abdomen): normal bowel sounds, soft, nontender, no hepatosplenomegaly Musculoskeletal: no cyanosis or clubbing, extremities motor strength 5/5 Neurologic: PERRL, EOMI, accommodation nl, no face palsy, no dysarthria Results & Data Vital Signs (Past 12 Hours) Vital Signs Temp Pulse Pulse Resp BP Pulse Ox O2 Del Method 04/07/25 11:15 36.6 C 130 H 18 130/90 93 Room Air 04/07/25 07:39 36.4 C L 121 H 20 119/84 94 Room Air 04/07/25 07:22 89 04/07/25 03:00 36.7 C 123 H 18 135/90 96 Room Air Laboratory Results Comprehensive Metabolic Panel 04/07/25 Range/Units 05:57 Sodium 141 (136-145) mmol/L Potassium 4.2 (3.5-5.1) mmol/L Chloride 109 H (98-107) mmol/L Carbon Dioxide 26 (21-32) mmol/L BUN 12 (6-23) mg/dl Creatinine 1.11 (0.6-1.2) mg/dl Glucose 92 (70-99(Fasting)) mg/dl Calcium 9.1 (8.6-10.3) mg/dl Intake and Output 04/06/25 04/07/25 04/07/25 22:59 06:59 14:59 Intake Total 176.15 / 1164.817 150 / 1164.817 Balance 176.15 / 1164.817 150 / 1164.817 Intake: IV 176.15 / 414.817 Heparin 13979 Unit/500 ml D5w 176.15 / 314.817 25,000 units In 500 ml @ 650 UNITS/HR 13 mls/hr IV .Q24H MITESH Rx#:[id number] Oral 150 / 750 Other: # Unmeasured Voids 2 Weight 67.9 kg Weight Measurement Method Built in [facility] Diagnostic Findings Telemetry reviewed demonstrating atrial flutter with occasional PVC heart rates predominantly 110-130s EKG reviewed from this morning dated 04/07/2025 Atrial fib/flutter with rapid ventricular response at 123 bpm Medications Administered Current Inpatient Medications Acetaminophen (Acetaminophen 325 Mg Tab) 650 mg PO Q4H PRN PRN Reason: Pain or Fever Stop: 05/05/25 21:58 Al Hydrox/Mg Hydrox/Simethicone (Aluminum/Magnesium Susp 30 Ml Udc) 15 ml PO Q4H PRN PRN Reason: Dyspepsia Stop: 05/05/25 21:58 Apixaban (Apixaban 5 Mg Tablet) 5 mg PO BID [facility] Stop: 05/06/25 20:59 Last Admin: 04/07/25 07:47 Dose: 5 mg Atorvastatin Calcium (Atorvastatin 40 Mg Tab) 40 mg PO HS [facility] Stop: 05/06/25 20:59 Last Admin: 04/06/25 20:35 Dose: 40 mg Duloxetine HCl (Duloxetine Hcl 30 Mg Cap) 30 mg PO DAILY MITESH Stop: 05/06/25 08:59 Last Admin: 04/07/25 07:46 Dose: 30 mg Famotidine (Famotidine 40 Mg Tablet) 40 mg PO DAILY MITESH Stop: 05/06/25 08:59 Last Admin: 04/07/25 07:47 Dose: 40 mg Folic Acid (Folic Acid 1 Mg Tab) 1 mg PO DAILY [facility] Stop: 05/07/25 08:59 Last Admin: 04/07/25 07:48 Dose: 1 mg Hydroxyzine HCl (Hydroxyzine Hcl 25 Mg Tab) 50 mg PO HS [facility] Stop: 05/06/25 20:59 Last Admin: 04/06/25 20:35 Dose: 50 mg Diltiazem HCl 125 mg/ Dextrose 125 mls @ 0 mls/hr IV .Q0M [facility]; Protocol Stop: 05/05/25 18:14 Last Titration: 04/06/25 12:43 Dose: Infused Leflunomide (Leflunomide 10 Mg Tab) 20 mg PO DAILY [facility] Stop: 05/06/25 08:59 Last Admin: 04/07/25 07:47 Dose: 20 mg Magnesium Hydroxide (Magnesium Hydroxide Susp 30 Ml Udc) 30 ml PO Q12H PRN PRN Reason: Constipation Stop: 05/05/25 21:58 Metoprolol Succinate (Metoprolol Succ 50mg Ext Rel Tab) 50 mg PO BID MITESH Stop: 05/07/25 20:59 Ondansetron HCl (Ondansetron Inj 2 Mg/Ml 2 Ml Vial) 4 mg IV Q6H PRN PRN Reason: Nausea Stop: 05/05/25 21:58 Polyethylene Glycol (Polyethylene (Miralax) 17 Gm Pack) 17 gm PO DAILY PRN PRN Reason: Constipation Stop: 05/05/25 21:58 (2) HTN (hypertension) Hypertension type: primary hypertension Qualified Code(s): I10 - Essential (primary) hypertension
[2025-04-07] MEDS: METOPROLOL SUCC 50MG EXT REL TAB PO SCH (20:02)
[2025-04-07] MEDS: ACETAMINOPHEN 325 MG TAB PO PRN (20:03)
[2025-04-08 07:00] LABS: BUN Creatinine Ratio 11.5 (10-20); Calcium 9.1 mg/dl (8.6-10.3); Creatinine Clr Calc Pharmacy 28.7 ml/min; Potassium 4.2 mmol/L (3.5-5.1)
--- NOTE | 2025-04-08 07:38 | Hospitalist Progress Note ---
Date of Service April 08, 2025 Assessment & Plan (1) Atrial flutter with rapid ventricular response: (2) HTN (hypertension): (3) HLD (hyperlipidemia): (4) Rheumatoid arthritis: Plan 84 year old F presented to the ED with dizziness and a recent diagnosis of atrial flutter that was discovered yesterday as an outpatient with her PCP. Last week she had a syncopal episode where she awoke in the middle of the night with her and harpreet quickly out of bed and passed out. On presentation to the ED she was found to have in a flutter; was started on Cardizem drip and referred for admission. Atrial flutter with RVR Patient presents with Atrial flutter with rapid ventricular rate Echo 04/04/2025; 65 to 69%, mild aortic valve sclerosis, moderate moderate MR Patient was started on Cardizem drip and heparin drip; referred for admission. Patient currently on metoprolol succinate 50 mg twice daily and Eliquis for stroke prophylaxis. Plan for RAJAN with cardioversion today Hypokalemia: Repleted HTN: Chronic Takes losartan and amlodipine; hold for now +1 LE edema; suspect related to amlodipine Monitor HLD: Takes atorvastatin; continue Rheumatoid arthritis: Chronic Takes Arava; DMARD and follows with rheumatology No acute arthritis involving any of the joints VTE prophylaxis: Eliquis Disposition: PCP: Dr. Burns CODE STATUS: Full code Please note the above document was generated using voice recognition software. It may contain grammatical, syntax or spelling errors. Any formal questions or concerns about the content, text or information contained within the body of this dictation should be directly addressed to the provider for clarification Admission and Anticipated Discharge Date Admission Date: April 05, 2025 Subjective Patient seen and examined at bedside. She continues to be in a flutter with a rapid rate; no significant events overnight. N.p.o. for RAJAN with cardioversion today Review of Systems Review of Systems: All systems reviewed & are unremarkable except as noted in Subjective Physical Exam Physical Exam: Constitutional: WD/WN, vitals as above, NAD, sitting up in bed, pleasant, conversing easily Respiratory: normal respiratory effort, lungs clear to auscultation, no wheeze, rales, rhonchi. Normal insp/exp effort, no accessory muscle use Cardiovascular: irregular, no murmur, no edema Vessels: no JVD or carotid bruit Chest: normal inspection of chest Abdomen: normal bowel sounds, soft, nontender, no hepatosplenomegaly Musculoskeletal: no cyanosis or clubbing, extremities motor strength 5/5 Skin: no rashes, warm and dry normal turgor Neurologic: PERRL, EOMI, accommodation nl, no face palsy, no dysarthria CN's II- XI intact bilaterally and moves all extremities Psychiatric: A+Ox3, euthymic affect Results & Data Results & Data Vital Signs (Past 12 Hours) Vital Signs Temp Pulse Pulse Resp BP BP Pulse Ox 04/08/25 07:26 129 H 04/08/25 07:02 36.6 C 95 H 17 124/85 96 04/08/25 03:34 36.4 C L 104 H 16 112/75 96 04/07/25 23:30 36.4 C L 117 H 16 108/76 95 04/07/25 21:46 130 H 04/07/25 19:59 36.6 C 116 H 17 126/93 94 O2 Del Method 04/08/25 07:26 04/08/25 07:02 Room Air 04/08/25 03:34 Room Air 04/07/25 23:30 Room Air 04/07/25 21:46 04/07/25 19:59 Room Air (2) HTN (hypertension) Hypertension type: primary hypertension Qualified Code(s): I10 - Essential (primary) hypertension
[2025-04-08] MEDS: BENZOCAINE/TETRACAIN/BUTAM 50 APPLN/5 GM CAN EXT ONE (09:36)
[2025-04-08] MEDS ORDERED: PROPOFOL IV EMULSION 10 MG/ML 20 ML VIAL IV ONE (10:33)
[2025-04-08] MEDS ORDERED: PHENYLEPHRINE HCL 10 MG/ML VIAL ONE (10:39)
[2025-04-08] MEDS ORDERED: PHENYLEPHRINE 100MCG/ML 5ML SYR ONE (10:42)
--- NOTE | 2025-04-08 10:44 | Cardiology Progress Note ---
Date of Service April 08, 2025 Assessment & Plan (1) Atrial flutter with rapid ventricular response: (2) HTN (hypertension): (3) HLD (hyperlipidemia): Plan 84-year-old female with atrial flutter sustained at 130 bpm. Metoprolol titrated to 50 mg twice daily yesterday. She remains asymptomatic, however, heart rates uncontrolled. IV diltiazem discontinued. Discussed risk versus benefit of transesophageal echo guided cardiac rhythm. Patient agreeable to proceed. She remain NPO. Received dose of both metoprolol and Eliquis today. Possible discharge post cardioversion. Admission and Anticipated Discharge Date Admission Date: April 05, 2025 Subjective 84-year-old female seen examined the bedside. Telemetry feels atrial flutter at 130 bpm. Denies chest pain or palpitations. Unable to control heart rate off intravenous diltiazem infusion. Tolerating oral metoprolol and Eliquis. Review of Systems Review of Systems: All systems reviewed & are unremarkable except as noted in Subjective Physical Exam Constitutional: well nourished; no acute distress Respiratory: no respiratory distress, no labored breathing and no retractions Cardiovascular: Rate/Rhythm: regular rate and + tachycardic Heart Sounds: normal S1 and normal S2; no murmur Vessels: no JVD Extremities: no edema Gastrointestinal (Abdomen): Inspection/Auscultation: normal bowel sounds; abdomen not distended Percussion/Palpation: abdomen soft; abdomen nontender, no guarding and abdomen not rigid Neurologic: CN's II-XI intact bilaterally and moves all extremities; no focal motor deficits Results & Data Vital Signs (Past 12 Hours) Vital Signs Temp Pulse Pulse Resp BP BP Pulse Ox 04/08/25 07:26 129 H 04/08/25 07:02 36.6 C 95 H 17 124/85 96 04/08/25 03:34 36.4 C L 104 H 16 112/75 96 04/07/25 23:30 36.4 C L 117 H 16 108/76 95 O2 Del Method 04/08/25 07:26 04/08/25 07:02 Room Air 04/08/25 03:34 Room Air 04/07/25 23:30 Room Air Laboratory Results Comprehensive Metabolic Panel 04/08/25 Range/Units 05:46 Sodium 142 (136-145) mmol/L Potassium 4.2 (3.5-5.1) mmol/L Chloride 110 H (98-107) mmol/L Carbon Dioxide 27 (21-32) mmol/L BUN 15 (6-23) mg/dl Creatinine 1.30 H (0.6-1.2) mg/dl Glucose 89 (70-99(Fasting)) mg/dl Calcium 9.1 (8.6-10.3) mg/dl Intake and Output 04/07/25 04/08/25 04/08/25 22:59 06:59 14:59 Intake Total 250 / 250 Output Total Balance 249 / 249 Intake: Oral 250 / 250 Output: # Bowel Movements Other: Other Intake Source Pt. NPO for cardioversion # Unmeasured Voids 1 1 (2) HTN (hypertension) Hypertension type: primary hypertension Qualified Code(s): I10 - Essential (primary) hypertension
--- NOTE | 2025-04-08 11:09 | Anesthesiology Consultation ---
Date of Service April 08, 2025 Assessment & Plan Chart Review Chart Review: Acceptable Risk for Surgery and Patient NOT seen in Pre Admission Testing Consults Requested none ASA ASA3 Proposed Anesthesia Anesthesia Type: MAC Risk / Benefits Reviewed With: PT / POA / Parent / Guardian, Accepts Plan and Informed Consent Obtained History Surgery Operation Date: 04/08/25 11:00 Proposed Procedures p Transesophageal Echo w/Anesthesia - Fernando Monge, Height/Weight Height: 5 ft Weight: 67.9 kg Allergies Allergy/AdvReac Type Severity Reaction Status Date / Time latex Allergy Unknown Unknown Verified 04/05/25 19:53 Sulfa (Sulfonamide Allergy Unknown Unknown Verified 04/05/25 19:53 Antibiotics) Medications Home Medications Medication Instructions Recorded Confirmed Last Taken adalimumab 40 mg/0.4 mL 40 mg subcut DIRECTED 04/05/25 04/05/25 Unknown subcutaneous pen kit (Humira(CF) Pen) amlodipine 5 mg tablet 5 mg PO DAILY 04/05/25 04/05/25 Unknown atorvastatin 40 mg tablet 40 mg PO UD 04/05/25 04/05/25 Unknown cranberry 1 tab PO DAILY 04/05/25 04/05/25 Unknown duloxetine 30 mg capsule,delayed 30 mg PO DAILY 04/05/25 04/05/25 Unknown release famotidine 40 mg tablet 40 mg PO DAILY 04/05/25 04/05/25 Unknown folic acid 1 mg tablet 1 mg PO DAILY 04/05/25 04/05/25 Unknown hydroxyzine HCl 25 mg tablet 50 mg PO DAILY 04/05/25 04/05/25 Unknown leflunomide 20 mg tablet (Arava) 20 mg PO DAILY 04/05/25 04/05/25 Unknown losartan 50 mg tablet 50 mg PO DAILY 04/05/25 04/05/25 Unknown magnesium 1 tab PO DAILY 04/05/25 04/05/25 Unknown metoprolol succinate 25 mg 25 mg PO UD 04/05/25 04/05/25 Unknown tablet,extended release 24 hr prednisone 5 mg tablet 5 mg PO DAILY PRN Other 04/05/25 04/05/25 Unknown Active Medications Generic Name Dose Route Start Last Admin Trade Name Freq PRN Reason Stop Dose Admin Acetaminophen 650 mg 04/05/25 21:59 04/07/25 20:03 Acetaminophen 325 Mg Tab PO 05/05/25 21:58 650 mg Q4H PRN Administration Pain or Fever Apixaban 5 mg 04/06/25 21:00 04/08/25 08:12 Apixaban 5 Mg Tablet PO 05/06/25 20:59 5 mg BID MITESH Administration Atorvastatin Calcium 40 mg 04/06/25 21:00 04/07/25 20:02 Atorvastatin 40 Mg Tab PO 05/06/25 20:59 40 mg HS MITESH Administration Duloxetine HCl 30 mg 04/06/25 09:00 04/08/25 08:11 Duloxetine Hcl 30 Mg Cap PO 05/06/25 08:59 30 mg DAILY MITESH Administration Famotidine 40 mg 04/06/25 09:00 04/08/25 08:15 Famotidine 40 Mg Tablet PO 05/06/25 08:59 40 mg DAILY MITESH Administration Folic Acid 1 mg 04/07/25 09:00 04/08/25 08:15 Folic Acid 1 Mg Tab PO 05/07/25 08:59 1 mg DAILY MITESH Administration Hydroxyzine HCl 50 mg 04/06/25 21:00 04/07/25 20:03 Hydroxyzine Hcl 25 Mg Tab PO 05/06/25 20:59 50 mg HS MITESH Administration Diltiazem HCl 125 mg/ Dextrose 125 mls @ 0 mls/hr 04/05/25 18:15 04/06/25 12:43 IV 05/05/25 18:14 Infused .Q0M MITESH Titration Protocol 0 MG/HR Leflunomide 20 mg 04/06/25 09:00 04/08/25 08:15 Leflunomide 10 Mg Tab PO 05/06/25 08:59 20 mg DAILY MITESH Administration Metoprolol Succinate 50 mg 04/07/25 21:00 04/08/25 08:13 Metoprolol Succ 50mg Ext Rel Tab PO 05/07/25 20:59 50 mg BID MITESH Administration NPO Date Last Intake of Fluids: 04/07/25 Time Last Intake of Fluids: 20:00 Date Last Intake of Solids: 04/07/25 Time Last Intake of Solids: 20:00 Exercise / Class Metabolic Activity III < 4 Walking/Shop/Light housework Past Surgical History Surgical History (Updated 04/05/25 @ 19:53 by MARTIN Malone) No pertinent past surgical history Past Anesthesia History No Hx of Anesthesia Complications and No Family Hx of Anesthesia Complications History of PONV No Hx of PONV and No Hx of Motion Sickness Social History Smoking Status: Never smoker Hx Alcohol Use: No Hx Substance Use: No Review of Systems ROS Unobtainable: All systems reviewed & are unremarkable except as noted in HPI & below Physical Exam Vital Signs Last Vital Signs Temp 36.6 C 04/08/25 07:02 Pulse 129 H 04/08/25 07:26 Resp 17 04/08/25 07:02 BP 124/85 04/08/25 07:02 Pulse Ox 96 04/08/25 07:02 O2 Del Method Room Air 04/08/25 07:02 ENMT Mouth: no TMJ abnormality Thyromental Distance: > or= 3.5 Finger Breadths Mallampati Class: II Neck normal visual inspection and trachea midline; neck extension not limited Respiratory normal respiratory effort Auscultation: lungs clear to auscultation bilaterally Cardiovascular Rate/Rhythm: regular rate and regular rhythm Heart Sounds: no murmur Musculoskeletal Spine: normal cervical ROM Extremities: full ROM of extremities Neurologic moves all extremities Psychiatric Orientation: alert and oriented x 3 Testing Laboratory Results 04/06/25 06:17 04/08/25 05:46 PT 10.9 Seconds (9.0-12.0) 04/05/25 17:27 INR 1.0 (0.9-1.1) 04/05/25 17:27 APTT 24 Seconds (21-31) 04/05/25 17:27 Electrocardiogram Date: 04/07/25 Findings: + AFIB @ Afib with RVR at 123
[2025-04-08 12:08] VITALS: RESP 18
[2025-04-08 12:37] VITALS: PULSE 69; TEMP 97.5; O2SAT 93
--- NOTE | 2025-04-08 12:58 | Discharge Summary ---
Date of Service April 08, 2025 Admission HPI Per Admitting Provider Ms. King is an 84 year old female that presented to the ED as she was experiencing dizziness and had a recent diagnosis of atrial flutter Discovered yesterday as an outpatient With her PCP. Last week she had a syncopal episode where she awoke in the middle of the night with her and harpreet quickly out of bed and passed out. Additional past medical history includes hypertension, rheumatoid arthritis, CKD stage III, OA and GERD. Reportedly she had a failed stress test years ago and followed with a heart catheterization which she reports was normal about 20 years ago. She denies tobacco and alcohol use. With her new diagnosis of atrial flutter she was prescribed metoprolol but she has not taken any dosing yet as she read in the medication insert that there could be interactions with her current medication list. An echocardiogram was performed yesterday with an EF 65 to 69% with mild aortic valve sclerosis and moderate mitral regurgitation. In the ED no leukocytosis, hypokalemic 3.2, normal mag and TSH along with other unremarkable electrolytes. No transaminitis noted. A few weeks ago she did undergo an endometrial biopsy which was negative for malignancy. Pt denies CHOWDHURY, SOB, chest pain, abdominal pain or tenderness, dysuria, bowel changes. On examination, she is AAOx4 and able to Hold meaningful conversation without acute or apparent distress. Patient with irregular heart sounds. Lungs without adventitious sounds, some slight swelling +1 lower extremity edema; suspect this is related to her home medication of amlodipine. In the ED she was noted to be in rapid a flutter heart rate 140s. She was started on a Cardizem drip at 5 mg/h. She was given metoprolol 5 mg IV x 2 and her heart rate remains in the 130s. Heparin drip without bolus was ordered along with metoprolol 25 mg p.o. twice daily. Formal cardiology consult placed. Patient will be admitted for further evaluation and management of her new onset A-fib trill flutter. Please see A/P for further details. Admission Exam Per Admitting Provider Neuro: AAOx4, PERRLA, no aphagia, memory changes, CNII-XII grossly intact HEENT: head normocephalic, moist mucus membranes CV:Irreguarly irregular (-) M/G/R, (-) edema, cap refill < 3 seconds Resp: Lungs CTA in all folwer. On RA GI: Abdomen S/NT/ND, Ax4 bowel sounds, (-) CVA tenderness Musculoskeletal: 5/5 B/L UE strength, 5/5 B/L LE strength. No gait disturbance Skin: (-) rashes , (-) erythema. Psych: euthymic mood Principal Diagnosis A flutter with RVR status post cardioversion Discharge Exam Constitutional: WD/WN, vitals as above, NAD, sitting up in bed, pleasant, conversing easily Respiratory: normal respiratory effort, lungs clear to auscultation, no wheeze, rales, rhonchi. Normal insp/exp effort, no accessory muscle use Cardiovascular: regular, no murmur, no edema Vessels: no JVD or carotid bruit Chest: normal inspection of chest Abdomen: normal bowel sounds, soft, nontender, no hepatosplenomegaly Musculoskeletal: no cyanosis or clubbing, extremities motor strength 5/5 Skin: no rashes, warm and dry normal turgor Neurologic: PERRL, EOMI, accommodation nl, no face palsy, no dysarthria CN's II- XI intact bilaterally and moves all extremities Psychiatric: A+Ox3, euthymic affect Discharge Data Allergies Allergy/AdvReac Type Severity Reaction Status Date / Time latex Allergy Unknown Unknown Verified 04/05/25 19:53 Sulfa (Sulfonamide Allergy Unknown Unknown Verified 04/05/25 19:53 Antibiotics) Consultations 04/05/25 18:30 ED Decision to Admit Stat 04/05/25 18:59 Consult Cardiology Routine 04/07/25 15:25 Consult Anesthesiology Routine Procedures Performed Operation Date: 04/08/25 11:00 Actual Procedures p Cardioversion - Fernando Monge DO s Echo Transesophageal - Fernando Monge DO Hospital Course (1) Atrial flutter with rapid ventricular response: (2) HTN (hypertension): (3) HLD (hyperlipidemia): (4) Rheumatoid arthritis: Plan 84 year old F presented to the ED with dizziness and a recent diagnosis of atrial flutter that was discovered yesterday as an outpatient with her PCP. Last week she had a syncopal episode where she awoke in the middle of the night with her and harpreet quickly out of bed and passed out. On presentation to the ED she was found to have in a flutter; was started on Cardizem drip and referred for admission. Atrial flutter with RVR s/p RAJAN with cardioversion Patient presents with Atrial flutter with rapid ventricular rate Echo 04/04/2025; 65 to 69%, mild aortic valve sclerosis, moderate moderate MR Patient was started on Cardizem drip and heparin drip; referred for admission. Patient rate was not controlled despite being on metoprolol. Patient underwent RAJAN with cardioversion on the day of the discharge. She was discharged on metoprolol and Eliquis. She was recommended to follow-up with PCP. Amlodipine was discontinued as her blood pressure was within normal limits after increasing dose of metoprolol succinate. Please note the above document was generated using voice recognition software. It may contain grammatical, syntax or spelling errors. Any formal questions or concerns about the content, text or information contained within the body of this dictation should be directly addressed to the provider for clarification Total Time Total Time Spent Total Time Spent (In Minutes): 45 Total Time Includes: Examination of the Patient, Discharge Planning, Medication Reconciliation, Communication With Other Providers and Other Discharge Plan Discharge Items Patient Disposition: Home - Self-Care Reason For Visit: AFLUTTER Discharge Diagnosis: A flutter with RVR Condition on Discharge: Fair Activity: Resume your previous activity Non-emergency contact: Primary Care Provider Call non-emergency contact if: you have any medication questions and your symptoms worsen Follow-up/Referrals: Nikos Muñiz MD [Primary Care Provider] - (Date & Time 04/12/2025 9:20 AM Provider: Tila Burns MD Family Medicine [facility] ) Diet: Regular Addtl Attending Provider Instructions: You were admitted to the hospital due to irregular heart rhythm called atrial flutter. You were evaluated by cardiology during the hospitalization and underwent cardioversion. Following changes have been made to your medication regimen; Start taking metoprolol succinate 50 mg twice a day. This will slow down your heart rate and help with her blood pressure as well. Take Eliquis 5 mg twice a day. This is a blood thinner and helps prevent stroke. Stop taking amlodipine as you were started on metoprolol. Follow-up with your primary care doctor Pending Studies at Discharge: No Stand-Alone Forms: Matchalarm, Smoking Cessation Medications and DC Order Prescriptions: New metoprolol succinate 50 mg Tablet Extended Release 24 Hr 50 mg PO BID 30 Days Qty: 60 0RF Eliquis 5 mg Tablet 5 mg PO BID 30 Days Qty: 60 0RF Continued losartan 50 mg tablet 50 mg PO DAILY atorvastatin 40 mg tablet 40 mg PO UD Rx Instructions: original: 40mg po daily. per pt she doesnt take medication everyday famotidine 40 mg tablet 40 mg PO DAILY prednisone 5 mg tablet 5 mg PO DAILY PRN (Reason: Other) leflunomide [Arava] 20 mg tablet 20 mg PO DAILY hydroxyzine HCl 25 mg tablet 50 mg PO DAILY Rx Instructions: per pt she taakes 3 duloxetine 30 mg capsule,delayed release(DR/EC) 30 mg PO DAILY Humira(CF) Pen 40 mg/0.4 mL pen injector kit 40 mg subcut DIRECTED Rx Instructions: every other tuesday folic acid 1 mg tablet 1 mg PO DAILY cranberry 1 tab PO DAILY magnesium 1 tab PO DAILY Rx Instructions: otc Discontinued metoprolol succinate 25 mg tablet extended release 24 hr 25 mg PO UD Rx Instructions: hasnt started yet and isnt sure she will be taking amlodipine 5 mg tablet 5 mg PO DAILY Admission Data Admit Date/Time: 04/05/25 19:11 Attending Provider: Percy Thapa Admit Provider: Percy Thapa Primary Care Provider: Nikos Muñiz Other Providers: Percy Thapa; Josue Montejo; Isaias Betancourt
[2025-04-08 13:08] VITALS: BP 112/75
--- NOTE | 2025-04-08 13:30 | Cardioversion ---
Date of Service April 08, 2025 Electrical Cardioversion Rpt Electrical Cardioversion Report Indication: Paroxysmal atrial flutter with rapid ventricular response. Complications: None. Estimated blood loss: None. Anesthesia: Moderate sedation provided by the anesthesia service with propofol. Procedural summary: Patient was brought to the PACU in a fasting state. Transesophageal echocardiogram was performed prior to direct-current cardioversion. No evidence of left atrial appendage thrombus. Please see separate report. Conscious sedation provided by the anesthesia service with propofol. Please see separate report. After completion of RAJAN, the probe was removed. Defibrillator pads were placed in an anterior and posterior position. The defibrillator was synced to the QRS complex. A single 100 J shock was delivered. Patient was successfully converted from atrial flutter with 2-1 conduction to sinus rhythm. Conclusion: Successful transesophageal echocardiogram guided external direct- current cardioversion from atrial flutter to sinus rhythm with 100 J. Fernando Monge DO, [facility]
--- NOTE | 2025-04-08 13:36 | Anesthesiology Progress Note ---
Date of Service April 08, 2025 Anesthesia Post Procedure Vital Signs Vital Signs: Temp Pulse Pulse Resp BP BP Pulse Ox 04/08/25 13:07 36.4 C L 69 18 112/75 110/71 93 04/08/25 12:36 36.4 C L 69 110/71 93 04/08/25 12:00 64 18 100/63 94 04/08/25 11:19 36.8 C 135 H 18 110/85 98 04/08/25 07:26 129 H 04/08/25 07:02 36.6 C 95 H 17 124/85 96 04/08/25 03:34 36.4 C L 104 H 16 112/75 96 04/07/25 23:30 36.4 C L 117 H 16 108/76 95 04/07/25 21:46 130 H 04/07/25 19:59 36.6 C 116 H 17 126/93 94 04/07/25 16:06 36.4 C L 134 H 18 119/82 93 04/07/25 14:35 134 H O2 Del Method 04/08/25 13:07 04/08/25 12:36 Room Air 04/08/25 12:00 Room Air 04/08/25 11:19 Room Air 04/08/25 07:26 04/08/25 07:02 Room Air 04/08/25 03:34 Room Air 04/07/25 23:30 Room Air 04/07/25 21:46 04/07/25 19:59 Room Air 04/07/25 16:06 Room Air 04/07/25 14:35 Transfer of Care Handoff Completed per policy Notes Mental Status: alert / awake / arousable Patient Amnestic to Procedure: Yes Nausea / Vomiting: adequately controlled Pain: adequately controlled Airway Patency, RR, SpO2: stable & adequate BP & HR: stable & adequate Hydration State: stable & adequate Anesthetic Complications: no major complications apparent and Pt Satisfied with anesthetic care
--- NOTE | 2025-04-08 14:57 | Electrocardiogram Report ---
Test Reason : Blood Pressure : */* mmHG Vent. Rate : 140 BPM Atrial Rate : 140 BPM P-R Int : 184 ms QRS Dur : 74 ms QT Int : 258 ms P-R-T Axes : * 1 18 degrees QTcB Int : 393 ms Suspect atrial flutter with 2:1 A-V conduction Poor R-wave progression Abnormal ECG No previous ECGs available Reconfirmed by Bruce Pena ([id number]) on 04/08/2025 2:58:32 PM Referred By: Ambrocio Henry Confirmed By: Bruce Pena
--- NOTE | 2025-04-09 13:39 | Electrocardiogram Report ---
Test Reason : Blood Pressure : */* mmHG Vent. Rate : 64 BPM Atrial Rate : * BPM P-R Int : * ms QRS Dur : 68 ms QT Int : 430 ms P-R-T Axes : * -2 71 degrees QTcB Int : 443 ms Atrial flutter with variable A-V block Nonspecific T wave abnormality Abnormal ECG When compared with ECG of 05-Apr-2025 17:20, (unconfirmed) Vent. rate has decreased by 76 bpm Confirmed by Bruce Pnea ([id number]) on 04/09/2025 1:39:23 PM Referred By: Ambrocio Henry Confirmed By: Bruce Pena
--- NOTE | 2025-04-09 15:39 | Electrocardiogram Report ---
Test Reason : Blood Pressure : */* mmHG Vent. Rate : 123 BPM Atrial Rate : * BPM P-R Int : * ms QRS Dur : 66 ms QT Int : 314 ms P-R-T Axes : * 15 8 degrees QTcB Int : 449 ms Atrial flutter with variable A-V block Abnormal ECG When compared with ECG of 06-Apr-2025 06:33, (unconfirmed) Vent. rate has increased by 59 bpm Confirmed by Bruce Pena ([id number]) on 04/09/2025 3:38:42 PM Referred By: Ambrocio Henry Confirmed By: Bruce Pena
== END 2025-04-08 15:37 | disposition home or self-care (01) | DRG 310 ==
LOC: ED 17:04 → 2S 19:11 → SUATTDRO 19:11 → 2S 21:28

== ENCOUNTER 2025-04-18 14:04 | Inpatient (IN) ==
--- NOTE | 2025-04-18 14:32 | Emergency Department Note ---
Impression & Plan Atrial fibrillation with rapid ventricular response, Dizziness, Palpitations ED Provider Note ED Provider Note NAME: TRUONG MONROY AGE:84 SEX: Female : 1940 ARRIVES VIA: Private vehicle INFORMANT: Patient ED PROVIDER(s): Ruth Moran DO CHIEF COMPLAINT: Referred by PCP HPI: This is an 84-year-old female who presents to the emergency department due to concern for persistent dizziness and palpitations and found to have atrial fibrillation with RVR in her PCPs office. Patient with recent admission and diagnosis of atrial flutter and was started on beta-abhinav and Eliquis. She states they have been increasing her metoprolol dosing and she has been taking her meds as directed. She states she is staying well-hydrated. She denies any other recent illness or infection. She states her initial symptoms at admission began after she had taken a course of Cipro. She denies any coming, shortness of breath, chest pain, nausea or vomiting, or leg swelling. She denies bleeding from any source. She states today's visit was a follow-up and they were concerned about her rhythm which now appears to be atrial fibrillation instead of atrial flutter as well as how fast her heart was going. PAST MEDICAL HISTORY:See Below PAST SURGICAL HISTORY:See Below FAMILY HISTORY:See Below SOCIAL HISTORY:See Below HOME MEDICATIONS:See Below ALLERGIES:See Below VITALS:See Below PHYSICAL EXAMINATION: GENERAL: alert, well appearing, well nourished, no distress, non-toxic EYE EXAM: normal conjunctiva, PERRL and EOM's grossly intact OROPHARYNX: no exudate, no erythema, lips, buccal mucosa, and tongue normal and mucous membranes are moist NECK: supple, no nuchal rigidity, no adenopathy, non-tender LUNGS: Clear to auscultation. Normal chest wall mechanics, no w/r/r HEART: no murmurs, S1 normal and S2 normal, irregular rhythm ABDOMEN: abdomen soft, non-tender, normo-active bowel sounds, no masses, no rebound or guarding. SKIN: no rashes, petechiae, orbruising UPPER EXTREMITIES: upper extremities are grossly normal. FROM, nml pulses b/l. LOWER EXTREMITIES: No pitting edema. FROM, nml pulses b/l. NEURO EXAM: Normal sensorium, cranial nerves II-XII grossly intact, normal speech, no facial droop,nogross weakness of arms, no gross weakness of legs. Gross sensation intact. No ataxia. Vital Signs: reviewed and remarkable Differential Diagnosis: Dysrhythmia, PVCs, PACs, electrolyte abnormality, thyroid storm, ACS, PE, dehydration, anxiety, medication ADR, occult infection, as well as others were considered MEDICAL DECISION MAKING: This is an 84-year-old female who presents emergency department due to concern for dizziness, palpitations, was found to be in A-fib with RVR. Vital signs otherwise stable on arrival. Labs drawn and sent, IV established, EKG and chest x-ray performed at bedside and interpreted by me and she was monitored on telemetry. Patient's recent evaluation in house including her cardiology consultation, echo, and cardioversion as well as discharge summary were reviewed from her admission last month. Patient given 2 extra doses of IV metoprolol without any improvement in her symptoms. I did reach out to on-call [facility] cardiology and we discussed options for treatment and disposition at this time. After further discussion with the patient at bedside, she was in agreement with trial of new medication and monitoring overnight to evaluate for further need for cardioversion. Patient started on amiodarone bolus and drip per cardiology recommendations. Case discussed with the hospitalist team for additional evaluation and management. Patient was given additional oral potassium repletion due to a potassium of 3.8. Patient's other electrolytes are reassuring. Patient was given gentle IV fluids additionally as her creatinine was mildly elevated at 1.4. Consultation(s): 1746: Discussed with Dr. Nugent, [facility] cardiology. 1921: DIscussed with Dr. Sheikh, [facility] hospitalist team, for additional evaluation and mgmt. ER Treatment Provided: See below Diagnostics Interpreted By Me: -ECG: Atrial fibrillation at 116, normal axis, normal intervals, no acute ST/T wave changes -Cardiac Monitoring: An order was placed for continuous cardiac monitoring. The monitor shows a rate of 125 with a.fib rhythm. -Laboratory studies: As stated above and show below. -Imaging studies: X-ray Chest: A single view study of the chest was reviewed and was negative for cardiomegaly, focal infiltrate, effusion, pulmonary edema, or wide mediastinum. Triage Nursing Note Reviewed Prior/Outside Records Reviewed - recent DC summary reviewed including echo from March 2025 Critical Care: Critical care of 39 min performed to assess and manage high likelihood of life-threatening dysrhythmia, involving labs and imaging performed with assessment to evaluate dizziness and a.fib with RVR diagnosis with frequent reassessment. This time includes bedside time, treatment discussions with patient/family/consultants, documentation time and excludes procedure time. Past Med/Surg History Problem List Palpitations (Acute) Dizziness (Acute) Atrial fibrillation with rapid ventricular response (Acute) Rheumatoid arthritis HLD (hyperlipidemia) HTN (hypertension) OA (osteoarthritis) of hip Atrial flutter with rapid ventricular response (Acute) Surgical History No pertinent past surgical history Social History Smoking Status: Never smoker Second Hand Exposure: No; Do You Dip or Chew Tobacco: No; Tobacco Cessation Education Requested by Patient: No Hx Alcohol Use: No Hx Substance Use: No Preferred Language: Pashto Communication Ability: Effective Basketball Coach Required: No Beliefs That Will Affect Care: None Current Living Situation: Spouse Other Information That Helps Us Care for You: No Feels Safe at Home: Yes Safety Concerns: Feels Safe At This Time Assistive Devices: Glasses Allergies Allergies Allergy/AdvReac Type Severity Reaction Status Date / Time latex Allergy Unknown Unknown Verified 04/05/25 19:53 Sulfa (Sulfonamide Allergy Unknown Unknown Verified 04/05/25 19:53 Antibiotics) Home Meds Home Medications Medication Instructions Recorded Confirmed adalimumab 40 mg/0.4 mL 40 mg subcut DIRECTED 04/05/25 04/18/25 subcutaneous pen kit (Humira(CF) Pen) atorvastatin 40 mg tablet 40 mg PO DAILY 04/05/25 04/18/25 cranberry 1 tab PO DAILY ##0 04/05/25 04/18/25 duloxetine 30 mg capsule,delayed 30 mg PO DAILY 04/05/25 04/18/25 release famotidine 40 mg tablet 40 mg PO DAILY 04/05/25 04/18/25 folic acid 1 mg tablet 1 mg PO DAILY 04/05/25 04/18/25 hydroxyzine HCl 25 mg tablet 50 mg PO HS PRN Hives 04/05/25 04/18/25 leflunomide 20 mg tablet (Arava) 20 mg PO DAILY 04/05/25 04/18/25 losartan 50 mg tablet 50 mg PO DAILY 04/05/25 04/18/25 magnesium 400 tab PO DAILY 04/05/25 04/18/25 prednisone 5 mg tablet 5 mg PO DAILY PRN Other 04/05/25 04/18/25 metoprolol succinate 50 mg 75 mg PO BID 04/18/25 04/18/25 tablet,extended release 24 hr Previous Rx's Medication Instructions Recorded apixaban 5 mg tablet (Eliquis) 5 mg PO BID 30 days #60 tabs 04/08/25 Results & Data (ED) Vital Signs Vital Signs - 24 hr 04/18/25 14:06 04/18/25 14:27 04/18/25 14:51 Temperature 36.8 C Temperature Source Temporal Artery Scan Pulse Rate 119 H 119 H 128 H Pulse Rate [Apical] Pulse Rhythm [Apical] Pulse Strength [Apical] Respiratory Rate 18 Respiratory Effort / Characteristics Non-Labored Spontaneous Respiratory Depth Normal Respiratory Pattern Regular Blood Pressure 138/104 H 149/111 H Blood Pressure [Left Arm] Blood Pressure Mean 115 Blood Pressure Mean [Left Arm] Blood Pressure Position [Left Arm] Pulse Oximetry 97 Oxygen Delivery Method Room Air Sepsis Recent Fever Within 48 Hours No Sepsis New/Unexplained Change in Mental Status N/A Sepsis Action Taken by Nursing No Action Required 04/18/25 15:11 04/18/25 15:11 04/18/25 15:16 Temperature Temperature Source Pulse Rate 128 H Pulse Rate [Apical] 113 H Pulse Rhythm [Apical] Irregular Pulse Strength [Apical] Respiratory Rate 16 Respiratory Effort / Characteristics Non-Labored Spontaneous Respiratory Depth Normal Respiratory Pattern Regular Blood Pressure 160/130 H Blood Pressure [Left Arm] 160/130 H Blood Pressure Mean Blood Pressure Mean [Left Arm] 140 Blood Pressure Position [Left Arm] Lying Pulse Oximetry 97 96 Oxygen Delivery Method Room Air Room Air Sepsis Recent Fever Within 48 Hours Sepsis New/Unexplained Change in Mental Status Sepsis Action Taken by Nursing 04/18/25 16:18 04/18/25 16:33 04/18/25 17:00 Temperature Temperature Source Pulse Rate 128 H 122 H Pulse Rate [Apical] 129 H Pulse Rhythm [Apical] Irregular Pulse Strength [Apical] Respiratory Rate 16 Respiratory Effort / Characteristics Non-Labored Spontaneous Respiratory Depth Normal Respiratory Pattern Regular Blood Pressure 162/130 H 154/114 H Blood Pressure [Left Arm] 148/126 H Blood Pressure Mean Blood Pressure Mean [Left Arm] 133 Blood Pressure Position [Left Arm] Lying Pulse Oximetry 95 Oxygen Delivery Method Room Air Sepsis Recent Fever Within 48 Hours Sepsis New/Unexplained Change in Mental Status Sepsis Action Taken by Nursing 04/18/25 17:58 04/18/25 18:37 04/18/25 18:40 Temperature Temperature Source Pulse Rate 128 H Pulse Rate [Apical] 86 117 H Pulse Rhythm [Apical] Irregular Irregular Pulse Strength [Apical] Normal Respiratory Rate 17 Respiratory Effort / Characteristics Non-Labored Spontaneous Respiratory Depth Normal Respiratory Pattern Regular Blood Pressure Blood Pressure [Left Arm] 132/103 H Blood Pressure Mean Blood Pressure Mean [Left Arm] 112 Blood Pressure Position [Left Arm] Lying Pulse Oximetry 92 Oxygen Delivery Method Room Air Sepsis Recent Fever Within 48 Hours Sepsis New/Unexplained Change in Mental Status Sepsis Action Taken by Nursing 04/18/25 19:29 Temperature Temperature Source Pulse Rate Pulse Rate [Apical] 121 H Pulse Rhythm [Apical] Irregular Pulse Strength [Apical] Respiratory Rate 16 Respiratory Effort / Characteristics Non-Labored Spontaneous Respiratory Depth Normal Respiratory Pattern Regular Blood Pressure Blood Pressure [Left Arm] 137/112 H Blood Pressure Mean Blood Pressure Mean [Left Arm] 120 Blood Pressure Position [Left Arm] Sitting Pulse Oximetry 95 Oxygen Delivery Method Room Air Sepsis Recent Fever Within 48 Hours Sepsis New/Unexplained Change in Mental Status Sepsis Action Taken by Nursing Laboratory Data 04/18/25 14:30 04/18/25 14:30 Lab Results 04/18/25 Range/Units 14:30 WBC 5.68 (4.8-10.8) K/ul RBC 4.47 (4.20-5.40) M/uL Hgb 13.6 (12.0-16.0) g/dl Hct 40.8 (37.0-47.0) % MCV 91.3 (80.0-100.0) fL MCH 30.4 (25.0-34.0) pg MCHC 33.3 (32.0-36.0) g/dL RDW Std Deviation 43.8 (36.4-46.3) fL RDW Coeff of Titi 13.2 (11.5-14.5) % Plt Count 198 (130-400) K/uL MPV 10.6 (9.4-12.4) fL Immature Gran % (Auto) 0.4 % Neut % (Auto) 46.4 % Lymph % (Auto) 34.9 % Cassia % (Auto) 13.6 % Eos % (Auto) 3.5 % Baso % (Auto) 1.2 % Neut # (Auto) 2.64 (1.40-6.50) K/uL Lymph # (Auto) 1.98 (1.20-3.40) K/uL Cassia # (Auto) 0.77 H (0.11-0.59) K/uL Eos # (Auto) 0.20 (0.00-0.50) K/uL Baso # (Auto) 0.07 (0.00-0.20) K/uL Immature Gran # (Auto) 0.02 (0.01-0.20) K/uL PT 11.7 (9.0-12.0) Seconds INR 1.1 (0.9-1.1) Sodium 139 (136-145) mmol/L Potassium 3.8 (3.5-5.1) mmol/L Chloride 106 (98-107) mmol/L Carbon Dioxide 26 (21-32) mmol/L Anion Gap 7 (3-11) BUN 16 (6-23) mg/dl Creatinine 1.40 H (0.6-1.2) mg/dl Est Cr Clr Drug Dosing 26.6 ml/min eGFR 37.56 BUN/Creatinine Ratio 11.4 (10-20) Glucose 107 H (70-99(Fasting)) mg/dl Calcium 9.4 (8.6-10.3) mg/dl Magnesium 2.0 (1.7-2.4) mg/dl Total Bilirubin 1.1 H (0.2-1.0) mg/dl AST 74 H (13-39) U/L ALT 89 H (7-52) U/L Alkaline Phosphatase 60 (34-104) U/L Troponin I High Sens 11.5 (0-14) pg/ml Total Protein 6.8 (6.0-8.3) gm/dl Albumin 4.1 (3.4-5.0) gm/dl Globulin 2.7 (2.5-4.0) gm/dl Albumin/Globulin Ratio 1.5 (0.9-2) TSH 4.947 H (0.300-4.500) uIu/ml Free T4 0.81 (0.61-1.60) ng/dl Lyme Disease Screen Negative (Negative) Administered Medications Apixaban (Apixaban 5 Mg Tablet) 5 mg PO BID [facility] Stop: 05/18/25 20:59 Last Admin: 04/18/25 21:03 Dose: 5 mg Documented By: MARGARETH Hydroxyzine HCl (Hydroxyzine Hcl 25 Mg Tab) 50 mg PO HS PRN PRN Reason: Hives Stop: 05/18/25 20:32 Last Admin: 04/18/25 21:06 Dose: 50 mg Documented By: MARGARETH Sodium Chloride (Nss) 1,000 mls @ 75 mls/hr IV .[id number] MITESH Stop: 04/21/25 14:44 Last Infusion: 04/18/25 20:07 Dose: 75 mls/hr Documented By: Admin: 04/18/25 14:54 Dose: 125 mls/hr Documented By: MARKO Amiodarone HCl/Dextrose (Nexterone / D5w) 360 mg in 200 mls @ 33.333 mls/hr IV ONE ONE Stop: 04/19/25 00:24 Last Admin: 04/18/25 18:39 Dose: 1 mg/min, 33.3 mls/hr Documented By: MALIK Co-signed By: PURA Metoprolol Succinate (Metoprolol Succ 50mg Ext Rel Tab) 100 mg PO BID [facility] Stop: 05/18/25 20:59 Last Admin: 04/18/25 21:03 Dose: 100 mg Documented By: MARGARETH Discontinued Medications Amiodarone HCl (Amiodarone Iv Bolus & Drip) 1 each IV NOW STA; Protocol Stop: 04/18/25 18:15 Last Admin: 04/18/25 18:34 Dose: Not Given Documented By: MALIK Amiodarone HCl/Dextrose (Nexterone / D5w) 150 mg in 100 mls @ 600 mls/hr IV NOW STA Stop: 04/18/25 18:23 Last Infusion: 04/18/25 18:35 Dose: Infused Documented By: MALIK Co-signed By: PURA Admin: 04/18/25 18:24 Dose: 600 mls/hr Documented By: MALIK Co-signed By: PURA Metoprolol Tartrate (Metoprolol Tartrate 1 Mg/Ml Vial) 5 mg IV NOW STA Stop: 04/18/25 14:36 Last Admin: 04/18/25 14:51 Dose: 5 mg Documented By: MARKO Metoprolol Tartrate (Metoprolol Tartrate 1 Mg/Ml Vial) 5 mg IV NOW STA Stop: 04/18/25 16:12 Last Admin: 04/18/25 16:18 Dose: 5 mg Documented By: MALIK Miscellaneous (Stat Iv Infusion Titration Per Protocol) 1 each N/A NOW STA Stop: 04/18/25 18:15 Last Admin: 04/18/25 18:19 Dose: Not Given Documented By: MALIK Potassium Chloride (Potassium Chloride Crtab 20 Meq Tabcr) 40 meq PO NOW STA Stop: 04/18/25 17:26 Last Admin: 04/18/25 18:23 Dose: 40 meq Documented By: MALIK Imaging Data Radiologist's Impression: Chest X-Ray 04/18/25 14:33 XR chest 1V portable CLINICAL HISTORY: chest pain COMPARISON STUDY: 04/05/2025 FINDINGS: Stable cardiomegaly without pulmonary vascular congestion. Stable hyperexpanded lungs. There is interval mild stranding in the lung bases. No consolidation or pleural effusion seen otherwise. No pneumothorax. IMPRESSION: Interval mild stranding in the lung bases could represent atelectasis or early pneumonia. ACT 112: Negative or not required by law. Electronically signed by: Matthwe Hernandez M.D. 04/18/2025 3:19 PM Discharge Plan Visit Data Chief Complaint: Cardiac Assessment Stated Complaint: HEART FLUTTER, REF BY DOC ED Provider: Ruth Moran Discharge Problem: Atrial fibrillation with rapid ventricular response, Dizziness, Palpitations Patient Disposition: Admitted As Inpatient Condition: Fair Discharge Instructions Interventions: ED Discharge Assessment Last Done: 04/18/25 20:10
[2025-04-18 14:45] LABS: Hematocrit (blood only) 40.8 % (37.0-47.0); Hemoglobin 13.6 g/dl (12.0-16.0); Immature Granulocytes # (auto) 0.02 K/uL (0.01-0.20); Immature Granulocytes % (auto) 0.4 %; Mean Corpuscular Hemoglobin 30.4 pg (25.0-34.0); Mean Corpuscular Volume 91.3 fL (80.0-100.0); Platelet Count 198 K/uL (130-400); RDW Standard Deviation 43.8 fL (36.4-46.3); Red Blood Count 4.47 M/uL (4.20-5.40); White Blood Count 5.68 K/ul (4.8-10.8)
[2025-04-18] MEDS: METOPROLOL TARTRATE 1 MG/ML VIAL IV STA ×2 (14:51→16:18)
[2025-04-18] MEDS: SODIUM CHLORIDE 0.9% 1,000 ML IV SCH (14:54)
[2025-04-18 15:02] LABS: Alanine Aminotransferase 89.0 U/L (7-52); Albumin Globulin Ratio 1.5 (0.9-2); Alkaline Phosphatase 60.0 U/L (34-104); Anion Gap 7.0 (3-11); Bilirubin,Total 1.1 mg/dl (0.2-1.0); Blood Urea Nitrogen 16.0 mg/dl (6-23); Calcium 9.4 mg/dl (8.6-10.3); Carbon Dioxide 26.0 mmol/L (21-32); Chloride 106.0 mmol/L (98-107); Creatinine Clr Calc Pharmacy 26.6 ml/min; Globulin 2.7 gm/dl (2.5-4.0); Glucose 107.0 mg/dl (70-99(Fasting)); Magnesium 2.0 mg/dl (1.7-2.4); Potassium 3.8 mmol/L (3.5-5.1); Sodium 139.0 mmol/L (136-145); Total Protein 6.8 gm/dl (6.0-8.3)
[2025-04-18 15:17] LABS: Thyroid Stimulating Hormone 4.947 uIu/ml (0.300-4.500)
--- NOTE | 2025-04-18 15:20 | XRay Report ---
XR chest 1V portable CLINICAL HISTORY: chest pain COMPARISON STUDY: 04/05/2025 FINDINGS: Stable cardiomegaly without pulmonary vascular congestion. Stable hyperexpanded lungs. Ther e is interval mild stranding in the lung bases. No consolidation or pleural effusion seen otherwise. No pneumothorax. IMPRESSION: Interval mild stranding in the lung bases could represent atelectasis or early pneumonia . ACT 112: Negative or not required by law. Electronically signed by: Matthew Hernandez M.D. 04/18/2025 3:19 PM
[2025-04-18 15:21] LABS: INR 1.1 (0.9-1.1); Prothrombin Time 11.7 Seconds (9.0-12.0)
[2025-04-18] MEDS ORDERED: 0.2 MICRON FILTER SET 1 EACH IV STA (18:14)
[2025-04-18] MEDS: STAT IV Infusion **Titration per Protocol STA (18:19)
[2025-04-18] MEDS: POTASSIUM CHLORIDE CRTAB 20 MEQ TABCR PO STA (18:23)
[2025-04-18] MEDS: AMIODARONE / D5W 150 MG/100 ML BAG IV STA (18:24)
[2025-04-18] MEDS: AMIODARONE IV BOLUS & DRIP IV STA (18:34)
[2025-04-18] MEDS: AMIODARONE / D5W 360 MG/200 ML BAG IV ONE (18:39)
--- NOTE | 2025-04-18 19:19 | Hospitalist Progress Note ---
Date of Service April 18, 2025 Review of Systems Review of Systems: All systems reviewed & are unremarkable except as noted in Subjective Results & Data Results & Data Vital Signs (Past 12 Hours) Vital Signs Temp Pulse Pulse Resp BP BP Pulse Ox 04/18/25 18:40 117 H 04/18/25 18:37 86 17 132/103 H 92 04/18/25 17:58 128 H 04/18/25 17:00 129 H 16 148/126 H 95 04/18/25 16:33 122 H 154/114 H 04/18/25 16:18 128 H 162/130 H 04/18/25 15:16 128 H 160/130 H 04/18/25 15:11 113 H 16 160/130 H 96 04/18/25 15:11 97 04/18/25 14:51 128 H 149/111 H 04/18/25 14:27 119 H 04/18/25 14:06 36.8 C 119 H 18 138/104 H 97 O2 Del Method 04/18/25 18:40 04/18/25 18:37 Room Air 04/18/25 17:58 04/18/25 17:00 Room Air 04/18/25 16:33 04/18/25 16:18 04/18/25 15:16 04/18/25 15:11 Room Air 04/18/25 15:11 Room Air 04/18/25 14:51 04/18/25 14:27 04/18/25 14:06 Room Air Laboratory Results Short CBC 04/18/25 Range/Units 14:30 WBC 5.68 (4.8-10.8) K/ul Hgb 13.6 (12.0-16.0) g/dl Hct 40.8 (37.0-47.0) % Plt Count 198 (130-400) K/uL BMP 04/18/25 14:30 Sodium 139 Potassium 3.8 Chloride 106 Carbon Dioxide 26 BUN 16 Creatinine 1.40 H Glucose 107 H Calcium 9.4 Liver Function 04/18/25 Range/Units 14:30 Total Bilirubin 1.1 H (0.2-1.0) mg/dl AST 74 H (13-39) U/L ALT 89 H (7-52) U/L Alkaline Phosphatase 60 (34-104) U/L Albumin 4.1 (3.4-5.0) gm/dl Medications Administered --CXR: Interval mild stranding in the lung bases could represent atelectasis or early pneumonia. ECG Additional Comments: --EKG:Afib RVR
--- NOTE | 2025-04-18 20:20 | History & Physical Report ---
Date of Service April 18, 2025 Assessment & Plan (1) Atrial fibrillation with rapid ventricular response: (2) Palpitations: (3) Dizziness: Plan: Atrial Fibrillation RVR Valvular heart disease H/O atrial flutter with RVR s/p cardioversion --CXR: No clear consolidation or pulmonary edema /pleural effusion --TSH mildly elevated, normal free T4 --ECHO on 04/04/25: EF 65 to 69%. Left ventricular wall motion normal. Left atrium is moderately enlarged. Mild aortic valve sclerosis is present. Moderate mitral regurgitation is present. Mild tricuspid regurgitation is present. No evidence of pulmonary hypertension. 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 for possible cardioversion Cardiology consulted Hypertensive urgency Likely situational H/O Hypertension Hold losartan due to rising creatinine Metoprolol succinate increased to 100 mg twice a day as above IV labetalol as needed Chronic diarrhea H/O intussusception as a child Check stool studies Acute kidney injury Avoid nephrotoxic agents as able Hold losartan for now Continue IV fluids Monitor renal function Mild transaminitis H/O hepatitis (unknown type per patient) Denies any alcohol use Monitor LFTs while on IV amiodarone Abnormal thyroid function Mildly elevated TSH, normal T4 Will need repeat thyroid function test as outpatient Rheumatoid arthritis Follows with rheumatology as outpatient Continue home medications Hyperlipidemia Continue Lipitor Generalized anxiety disorder Continue Cymbalta Hydroxyzine as needed GERD Continue PPI, famotidine DVT Px: Eliquis CODE STATUS Full code Disposition Admit to telemetry History of Present Illness Chief Complaint: Dizziness Primary Care Provider: Tila Burns MD Patient is a 89-year-old female with history of rheumatoid arthritis, atrial flutter, polymyalgia rheumatica, GERD, generalized anxiety disorder, dyslipidemia, hypertension, CKD stage III and other medical problems who was recently hospitalized and was treated for new onset atrial flutter with RVR and hypokalemia presents with history of's significant dizziness which has been going on for the last 1 week. Patient states that during her prior hospitalization, her metoprolol dose is increased to 50 mg twice a day. She followed with her PCP and was noted to be tachycardic and her metoprolol dose was increased to 75 mg twice a day. She has been documenting her blood pressure and heart rate for the past week and she noted her heart rate persistently elevated in 130s. She had revisited her PCP today and was found to be tachycardic again and was sent to ED for further evaluation. Patient states having significant dizziness which she feels that she is going to pass out. She denies any chest pain, dyspnea, fever, chills, nausea, vomiting, palpitations, syncope. Patient reports having chronic diarrhea since many years which she states that she had extensive workup in the past. She denies any blood in the stool. Her last antibiotic use was in February for an E. coli infection. She has been taking her medications regularly. ED physician discussed with windows software developer on-call who recommended cardioversion versus IV amiodarone. Patient opted for IV amiodarone and was started in ED. Allergies Allergy/AdvReac Type Severity Reaction Status Date / Time latex Allergy Unknown Unknown Verified 04/05/25 19:53 Sulfa (Sulfonamide Allergy Unknown Unknown Verified 04/05/25 19:53 Antibiotics) Home Medications Medication Instructions Recorded Confirmed Type adalimumab 40 mg/0.4 mL 40 mg subcut DIRECTED 04/05/25 04/18/25 History subcutaneous pen kit (Humira(CF) Pen) atorvastatin 40 mg tablet 40 mg PO DAILY 04/05/25 04/18/25 History cranberry 1 tab PO DAILY ##0 04/05/25 04/18/25 History duloxetine 30 mg capsule,delayed 30 mg PO DAILY 04/05/25 04/18/25 History release famotidine 40 mg tablet 40 mg PO DAILY 04/05/25 04/18/25 History folic acid 1 mg tablet 1 mg PO DAILY 04/05/25 04/18/25 History hydroxyzine HCl 25 mg tablet 50 mg PO HS PRN Hives 04/05/25 04/18/25 History leflunomide 20 mg tablet (Arava) 20 mg PO DAILY 04/05/25 04/18/25 History losartan 50 mg tablet 50 mg PO DAILY 04/05/25 04/18/25 History magnesium 400 tab PO DAILY 04/05/25 04/18/25 History prednisone 5 mg tablet 5 mg PO DAILY PRN Other 04/05/25 04/18/25 History apixaban 5 mg tablet (Eliquis) 5 mg PO BID 30 days #60 tabs 04/08/25 04/18/25 Rx metoprolol succinate 50 mg 75 mg PO BID 04/18/25 04/18/25 History tablet,extended release 24 hr Past Med/Surg History Problem List Palpitations (Acute) Dizziness (Acute) Atrial fibrillation with rapid ventricular response (Acute) Rheumatoid arthritis HLD (hyperlipidemia) HTN (hypertension) OA (osteoarthritis) of hip Atrial flutter with rapid ventricular response (Acute) Surgical History No pertinent past surgical history Social History Smoking Status: Never smoker Hx Alcohol Use: No Hx Substance Use: No Preferred Language: Latvian Communication Ability: Effective Supervisor [employer] Department Required: No Beliefs That Will Affect Care: None Current Living Situation: Spouse Feels Safe at Home: Yes Assistive Devices: Glasses Review of Systems Review of Systems: All systems reviewed & are unremarkable except as noted in Subjective Physical Exam Physical Exam: Physical Exam: Vitals signs as noted above General Appearance:Moderately built and nourished, no apparent distress, elderly Head: normocephalic, Atraumatic Eyes: normal inspection, EOMI Neck: supple, Trachea midline Respiratory/Chest: Normal breath sounds, CTA, No accessory muscle use Cardiovascular: Irregularly irregular, tachycardic, No murmur Abdomen/GI:Soft, Non tender, Bowel sounds present Extremities/Musculoskeletal:normal inspection, trace lower extremity edema Neurologic/Psych:AAOX3, grossly no focal neurological deficits Skin: normal color, warm Results & Data Results & Data Vital Signs (Past 12 Hours) Vital Signs Temp Pulse Pulse Resp BP BP Pulse Ox 04/18/25 19:29 121 H 16 137/112 H 95 04/18/25 18:40 117 H 04/18/25 18:37 86 17 132/103 H 92 04/18/25 17:58 128 H 04/18/25 17:00 129 H 16 148/126 H 95 04/18/25 16:33 122 H 154/114 H 04/18/25 16:18 128 H 162/130 H 04/18/25 15:16 128 H 160/130 H 04/18/25 15:11 113 H 16 160/130 H 96 04/18/25 15:11 97 04/18/25 14:51 128 H 149/111 H 04/18/25 14:27 119 H 04/18/25 14:06 36.8 C 119 H 18 138/104 H 97 O2 Del Method 04/18/25 19:29 Room Air 04/18/25 18:40 04/18/25 18:37 Room Air 04/18/25 17:58 04/18/25 17:00 Room Air 04/18/25 16:33 04/18/25 16:18 04/18/25 15:16 04/18/25 15:11 Room Air 04/18/25 15:11 Room Air 04/18/25 14:51 04/18/25 14:27 04/18/25 14:06 Room Air Laboratory Results Short CBC 04/18/25 Range/Units 14:30 WBC 5.68 (4.8-10.8) K/ul Hgb 13.6 (12.0-16.0) g/dl Hct 40.8 (37.0-47.0) % Plt Count 198 (130-400) K/uL BMP 04/18/25 14:30 Sodium 139 Potassium 3.8 Chloride 106 Carbon Dioxide 26 BUN 16 Creatinine 1.40 H Glucose 107 H Calcium 9.4 Liver Function 04/18/25 Range/Units 14:30 Total Bilirubin 1.1 H (0.2-1.0) mg/dl AST 74 H (13-39) U/L ALT 89 H (7-52) U/L Alkaline Phosphatase 60 (34-104) U/L Albumin 4.1 (3.4-5.0) gm/dl Diagnostic Findings --CXR:Interval mild stranding in the lung bases could represent atelectasis or early pneumonia. Medications Administered Home Medications Medication Instructions Recorded Confirmed adalimumab 40 mg/0.4 mL 40 mg subcut DIRECTED 04/05/25 04/18/25 subcutaneous pen kit (Humira(CF) Pen) atorvastatin 40 mg tablet 40 mg PO DAILY 04/05/25 04/18/25 cranberry 1 tab PO DAILY ##0 04/05/25 04/18/25 duloxetine 30 mg capsule,delayed 30 mg PO DAILY 04/05/25 04/18/25 release famotidine 40 mg tablet 40 mg PO DAILY 04/05/25 04/18/25 folic acid 1 mg tablet 1 mg PO DAILY 04/05/25 04/18/25 hydroxyzine HCl 25 mg tablet 50 mg PO HS PRN Hives 04/05/25 04/18/25 leflunomide 20 mg tablet (Arava) 20 mg PO DAILY 04/05/25 04/18/25 losartan 50 mg tablet 50 mg PO DAILY 04/05/25 04/18/25 magnesium 400 tab PO DAILY 04/05/25 04/18/25 prednisone 5 mg tablet 5 mg PO DAILY PRN Other 04/05/25 04/18/25 metoprolol succinate 50 mg 75 mg PO BID 04/18/25 04/18/25 tablet,extended release 24 hr Previous Rx's Medication Instructions Recorded apixaban 5 mg tablet (Eliquis) 5 mg PO BID 30 days #60 tabs 04/08/25 ECG Additional Comments: --EKG: A-fib RVR, tachycardia Code Status & VTE Plan VTE Prophylaxis Plan VTE Prophylaxis will be ordered: Yes
[2025-04-18] MEDS ORDERED: POLYETHYLENE (MIRALAX) 17 GM PACK PO PRN (20:33)
[2025-04-18] MEDS ORDERED: LABETALOL HCL IV 5 MG/ML 20ML IV PRN (20:33)
[2025-04-18] MEDS ORDERED: METOPROLOL SUCC 25MG EXT REL TAB PO SCH (21:00)
[2025-04-18] MEDS: APIXABAN 5 MG TABLET PO SCH (21:03)
[2025-04-18] MEDS: METOPROLOL SUCC 50MG EXT REL TAB PO SCH (21:03)
[2025-04-19] MEDS: AMIODARONE / D5W 360 MG/200 ML BAG IV SCH ×2 (00:26→17:33)
[2025-04-19] MEDS: ACETAMINOPHEN 325 MG TAB PO PRN (03:31)
[2025-04-19 05:51] LABS: Hematocrit (blood only) 35.3 % (37.0-47.0); Hemoglobin 11.8 g/dl (12.0-16.0); Mean Corpuscular Hemoglobin 30.6 pg (25.0-34.0); Mean Corpuscular Volume 91.7 fL (80.0-100.0); Platelet Count 145 K/uL (130-400); RDW Standard Deviation 44.0 fL (36.4-46.3); Red Blood Count 3.85 M/uL (4.20-5.40); White Blood Count 4.68 K/ul (4.8-10.8)
[2025-04-19 06:18] LABS: Alanine Aminotransferase 61.0 U/L (7-52); Albumin Globulin Ratio 2.1 (0.9-2); Alkaline Phosphatase 42.0 U/L (34-104); Anion Gap 5.0 (3-11); Bilirubin,Total 0.7 mg/dl (0.2-1.0); Blood Urea Nitrogen 16.0 mg/dl (6-23); Calcium 8.1 mg/dl (8.6-10.3); Carbon Dioxide 23.0 mmol/L (21-32); Chloride 111.0 mmol/L (98-107); Creatinine Clr Calc Pharmacy 28.9 ml/min; Globulin 1.7 gm/dl (2.5-4.0); Glucose 117.0 mg/dl (70-99(Fasting)); Magnesium 1.9 mg/dl (1.7-2.4); Potassium 3.9 mmol/L (3.5-5.1); Sodium 139.0 mmol/L (136-145); Total Protein 5.2 gm/dl (6.0-8.3)
[2025-04-19] MEDS: ONDANSETRON INJ 2 MG/ML 2 ML VIAL IV PRN (07:33)
[2025-04-19] MEDS: ATORVASTATIN 40 MG TAB PO SCH (08:05)
[2025-04-19] MEDS: FOLIC ACID 1 MG TAB PO SCH (08:05)
[2025-04-19] MEDS: FAMOTIDINE 10 MG TABLET PO SCH (08:06)
[2025-04-19] MEDS ORDERED: FAMOTIDINE 40 MG TABLET PO SCH (09:00)
--- NOTE | 2025-04-19 11:31 | Hospitalist Progress Note ---
Date of Service April 19, 2025 Assessment & Plan (1) Atrial fibrillation with rapid ventricular response: (2) Palpitations: (3) Dizziness: Plan: 89-year-old female with history of rheumatoid arthritis, atrial flutter, polymyalgia rheumatica, GERD, generalized anxiety disorder, dyslipidemia, hypertension, CKD stage III and other medical problems who was recently hospitalized and was treated for new onset atrial flutter with RVR and hypokalemia presents with history of's significant dizziness which has been going on for the last 1 week Atrial Fibrillation with RVR H/O atrial flutter with RVR s/p cardioversion on 04/08/25 CXR: No clear consolidation or pulmonary edema /pleural effusion TSH mildly elevated 4.94, normal free T4. PCP to repeat thyroid function test in 6 weeks ECHO on 04/04/25: EF 65 to 69%. Left ventricular wall motion normal. Left atri um is moderately enlarged. Mild aortic valve sclerosis is present. Moderate mitral regurgitation is present. Mild tricuspid regurgitation is present. No evidence of pulmonary hypertension. Continue IV amiodarone Continue Metoprolol succinate that was increased to 100 mg BID Continue Eliquis for anticoagulation Discussed with Cane Cutter at bedside. He plans to do Cardioversion. 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 Will continue to monitor for now Chronic diarrhea H/O intussusception as a child Follow up stool studies ordered Acute kidney injury CKD 3 Cr baseline from [facility] is 1.1-1.2 Cr is 1.4 on admission, improved to 1.28 today Avoid nephrotoxic agents as able Hold losartan for now Continue IV fluids especially while NPO awaiting procedure Monitor renal function Mild transaminitis H/O hepatitis (unknown type per patient) Denies any alcohol use Monitor LFTs while on IV amiodarone Rheumatoid arthritis Follows with rheumatology as outpatient Continue home medications Hyperlipidemia Continue Lipitor Generalized anxiety disorder Continue Cymbalta Hydroxyzine as needed GERD Continue PPI, famotidine DVT Px: Eliquis CODE STATUS Full code I spent a total of 50 minutes coordinating, documenting and providing care for this patient excluding time spent in performance of separately billed services Admission and Anticipated Discharge Date Admission Date: April 18, 2025 Subjective Patient seen and examined Reports dizziness especially with activity No palpitations today. No chest pain, nausea, vomiting, abd pain, diarrhea No fevers or chills Physical Exam Constitutional: + well hydrated; no acute distress Eyes: PERRL, conjunctivae normal, anicteric sclerae ENMT: external ear and nose normal, oropharynx normal Respiratory: normal respiratory effort, lungs clear to auscultation Cardiovascular: Rate/Rhythm: + tachycardic and + irregularly irregular Gastrointestinal (Abdomen): normal bowel sounds, soft, nontender, no hepatosplenomegaly Musculoskeletal: No pedal edema Neurologic: PERRL, EOMI, accommodation nl, no face palsy, no dysarthria Psychiatric: A+Ox3, euthymic affect Results & Data Results & Data Vital Signs (Past 12 Hours) Vital Signs Temp Pulse Pulse Resp BP Pulse Ox O2 Del Method 04/19/25 08:00 111 H 04/19/25 07:50 36.3 C L 103 H 20 138/99 91 Room Air 04/19/25 03:42 36.5 C 107 H 18 128/87 93 Room Air 04/19/25 00:00 36.5 C 97 H 18 119/87 94 Room Air Laboratory Results Abnormal lab results 04/18/25 04/19/25 Range/Units 14:30 05:12 WBC 4.68 L (4.8-10.8) K/ul RBC 3.85 L (4.20-5.40) M/uL Hgb 11.8 L (12.0-16.0) g/dl Hct 35.3 L (37.0-47.0) % [place] # (Auto) 0.77 H (0.11-0.59) K/uL Chloride 111 H (98-107) mmol/L Creatinine 1.40 H 1.28 H (0.6-1.2) mg/dl Glucose 107 H 117 H (70-99(Fasting)) mg/dl Calcium 8.1 L (8.6-10.3) mg/dl Total Bilirubin 1.1 H (0.2-1.0) mg/dl AST 74 H 42 H (13-39) U/L ALT 89 H 61 H (7-52) U/L Total Protein 5.2 L D (6.0-8.3) gm/dl Globulin 1.7 L (2.5-4.0) gm/dl Albumin/Globulin Ratio 2.1 H (0.9-2) TSH 4.947 H (0.300-4.500) uIu/ml
--- NOTE | 2025-04-19 12:42 | Pre Anesthesia Assessment ---
Date of Service April 19, 2025 Pre Sedation Assessment Vital Signs Temp Pulse Pulse Resp BP BP Pulse Ox 04/19/25 08:00 111 H 04/19/25 07:50 36.3 C L 103 H 20 138/99 91 04/19/25 03:42 36.5 C 107 H 18 128/87 93 04/19/25 00:00 36.5 C 97 H 18 119/87 94 04/18/25 23:00 117 H 04/18/25 20:33 36.3 C L 121 H 16 136/105 H 94 04/18/25 20:10 115 H 16 134/114 H 94 04/18/25 19:29 121 H 16 137/112 H 95 04/18/25 18:40 117 H 04/18/25 18:37 86 17 132/103 H 92 04/18/25 17:58 128 H 04/18/25 17:00 129 H 16 148/126 H 95 04/18/25 16:33 122 H 154/114 H 04/18/25 16:18 128 H 162/130 H 04/18/25 15:16 128 H 160/130 H 04/18/25 15:11 113 H 16 160/130 H 96 04/18/25 15:11 97 04/18/25 14:51 128 H 149/111 H 04/18/25 14:27 119 H 04/18/25 14:06 36.8 C 119 H 18 138/104 H 97 O2 Del Method 04/19/25 08:00 04/19/25 07:50 Room Air 04/19/25 03:42 Room Air 04/19/25 00:00 Room Air 04/18/25 23:00 04/18/25 20:33 Room Air 04/18/25 20:10 Room Air 04/18/25 19:29 Room Air 04/18/25 18:40 04/18/25 18:37 Room Air 04/18/25 17:58 04/18/25 17:00 Room Air 04/18/25 16:33 04/18/25 16:18 04/18/25 15:16 04/18/25 15:11 Room Air 04/18/25 15:11 Room Air 04/18/25 14:51 04/18/25 14:27 04/18/25 14:06 Room Air Cardiovascular RRR, no murmur, no edema Respiratory normal respiratory effort, lungs clear to auscultation Pre-Sedation Airway Assessment Smoking Status: Never smoker Hx Sleep Apnea: No Hx Difficult Intubation: No Short, Thick Neck: No Thyromental Distance: > or= 3.5 Finger Breadths Oral Cavity: + WNL NPO Status Date of Last Intake of Fluids: 04/18/25 Date of Last Intake of Solid Food: 04/18/25 Last Intake of Solids Comment: NPO greater than 12 hours Procedure Planning Contraindications for Sedation: none Current Medications Reviewed: Yes Notes The planned sedation has been discussed with the patient. Informed Consent was obtained. I have identified the patient, determined the appropriateness of sedation and have assessed the patient immediately prior to the procedure. All medicine(s) and interventions are by my order. Anticipate utilizing fentanyl and etomidate for A-fib cardioversion
[2025-04-19] MEDS: ETOMIDATE 2 MG/ML 20 ML VIAL IV ONE ×2 (12:51→14:45)
--- NOTE | 2025-04-19 13:03 | Cardioversion ---
Date of Service April 19, 2025 PG Electrical Cardioversion Rp Electrical Cardioversion Report Patient was brought down to ICU and consented for moderate sedation and DCCV. O2 via face mask was given. She was given 6 mg IV of Etomidate and 50mcg of IV fentanyl and was adequately sedated. Pre-DCCV Rhythm: Atrial flutter with variable AV block at a HR of 105 bpm After sedation was achieved, we proceeded with a 50J synchronized DCCV x 1. Successful DCCV was achieved. Post-DCCV Rhyth: Sinus Bradycardia with frequent PACs [place] [address] CARDIOVERSION, ELECTIVE Patient Type New History Detailed Exam Detailed Medical Decision Making Moderate Complexity Additional Codes Electrical Cardioversion Report ([id number]) Time Spent (min) 50
--- NOTE | 2025-04-19 13:19 | Post Anesthesia Assessment ---
Date of Service April 19, 2025 Post Sedation Assessment Vital Signs Temp Pulse Pulse Resp BP BP Pulse Ox 04/19/25 08:00 111 H 04/19/25 07:50 36.3 C L 103 H 20 138/99 91 04/19/25 03:42 36.5 C 107 H 18 128/87 93 04/19/25 00:00 36.5 C 97 H 18 119/87 94 04/18/25 23:00 117 H 04/18/25 20:33 36.3 C L 121 H 16 136/105 H 94 04/18/25 20:10 115 H 16 134/114 H 94 04/18/25 19:29 121 H 16 137/112 H 95 04/18/25 18:40 117 H 04/18/25 18:37 86 17 132/103 H 92 04/18/25 17:58 128 H 04/18/25 17:00 129 H 16 148/126 H 95 04/18/25 16:33 122 H 154/114 H 04/18/25 16:18 128 H 162/130 H 04/18/25 15:16 128 H 160/130 H 04/18/25 15:11 113 H 16 160/130 H 96 04/18/25 15:11 97 04/18/25 14:51 128 H 149/111 H 04/18/25 14:27 119 H 04/18/25 14:06 36.8 C 119 H 18 138/104 H 97 O2 Del Method 04/19/25 08:00 04/19/25 07:50 Room Air 04/19/25 03:42 Room Air 04/19/25 00:00 Room Air 04/18/25 23:00 04/18/25 20:33 Room Air 04/18/25 20:10 Room Air 04/18/25 19:29 Room Air 04/18/25 18:40 04/18/25 18:37 Room Air 04/18/25 17:58 04/18/25 17:00 Room Air 04/18/25 16:33 04/18/25 16:18 04/18/25 15:16 04/18/25 15:11 Room Air 04/18/25 15:11 Room Air 04/18/25 14:51 04/18/25 14:27 04/18/25 14:06 Room Air Recovery Score Activity: Moves 4 extremities Respiration: Deep Breath/Cough Circulation: +/-20% PreAnes Value Consciousness: Fully Awake Oxygen Saturation: > 92% On Room Air Discharge Sedation Level of Care: Fast Track Phase II Post Sedation Plan On clinical assessment, the patient appears to have tolerated the sedation without complications. Patient is recovering as anticipated. Patient will continue to be monitored by nursing and may be discharged when sedation discharge criteria are met per below protocol. Upon Completions of procedure up to 15 minutes continue every 5 minute vital signs and the P.A.R. score; then discharge to a Phase I or Fast Track to Phase II per the following guidelines: * Discharge Patient to appropriate Phase II area if PAR is 8 or greater or return to pre- procedure baseline. The post - procedure orders will be as directed. * If PAR score is less than 8 or not return to pre-procedure baseline then patient will follow Phase I monitoring till PAR is reached for Phase II. The Phase I may be done in procedure room or may call to secure a Phase I area. * If naloxone or flumazenil are used for reversal, hold in Phase I for contin ued monitoring from when last reversal dose was given for a minimum of 60 minutes or longer pending the nurse and/or physician discretion of patient condition before discharge to Phase II. Please call the Sedation Physician to re-evaluate and complete post-note for discharge to Phase II area. Do NOT discharge from procedure sedation or Phase 1 until post- sedation evaluation note is complete by procedure /sedation MD Sedation Discharge Instructions to be given to the patient at discharge to home. Supervising Physician Co-Signing Physician Notes Patient received 50 mcg fentanyl x 1 IV push 6 mg at the date. Patient was able to [id number] airway during the entire procedure total procedural time 26 minutes. [facility] [place] Codes (Charges) Sedation/Anesthesia Procedure 1: Sedation/Anesthesia: 32698 Mod Sedation by the same physician;Init15 Min Child Age 5 & Up
--- NOTE | 2025-04-19 13:41 | Cardiology Consultation ---
Date of Consultation April 19, 2025 Assessment & Plan (1) Atrial flutter with rapid ventricular response: This is an 84 year old female with a pmhx of Atrial flutter who presents with Atrial flutter with RVR. Denies current chest pain. No N/V/CHOWDHURY; afebrile. No PND or orthopnea. She appears to be minimally symptomatic despite the fast heart rate. She was recently cardioverted a few weeks prior but reverted back to Atrial flutter shortly thereafter. She has not been on an antiarrhythmic previously. She is currently on an IV amiodarone gtt at 0.5mg/min. 1. Atrial flutter with variable AV block and RVR -currently in sinus bradycardia with PACs -discontinue metoprolol -continue IV amiodarone gtt at 0.5mg/min -oral amiodarone load 200mg TID -plan for DC home tomorrow I provided 85 min of care to the patient in regards to management of Atrial flutter with RVR. Dexter Nugent MD History of Present Illness Reason for Consultation: Atrial flutter with RVR Attending Physician: Rose Mary Sandoval MD History of Present Illness This is an 84 year old female with a pmhx of Atrial flutter who presents with Atrial flutter with RVR. Denies current chest pain. No N/V/CHOWDHURY; afebrile. No PND or orthopnea. She appears to be minimally symptomatic despite the fast heart rate. She was recently cardioverted a few weeks prior but reverted back to Atrial flutter shortly thereafter. She has not been on an antiarrhythmic previously. She is currently on an IV amiodarone gtt at 0.5mg/min. Allergies Allergy/AdvReac Type Severity Reaction Status Date / Time latex Allergy Unknown Unknown Verified 04/05/25 19:53 Sulfa (Sulfonamide Allergy Unknown Unknown Verified 04/05/25 19:53 Antibiotics) Home Medications Medication Instructions Recorded Confirmed Type adalimumab 40 mg/0.4 mL 40 mg subcut DIRECTED 04/05/25 04/18/25 History subcutaneous pen kit (Humira(CF) Pen) atorvastatin 40 mg tablet 40 mg PO DAILY 04/05/25 04/18/25 History cranberry 1 tab PO DAILY ##0 04/05/25 04/18/25 History duloxetine 30 mg capsule,delayed 30 mg PO DAILY 04/05/25 04/18/25 History release famotidine 40 mg tablet 40 mg PO DAILY 04/05/25 04/18/25 History folic acid 1 mg tablet 1 mg PO DAILY 04/05/25 04/18/25 History hydroxyzine HCl 25 mg tablet 50 mg PO HS PRN Hives 04/05/25 04/18/25 History leflunomide 20 mg tablet (Arava) 20 mg PO DAILY 04/05/25 04/18/25 History losartan 50 mg tablet 50 mg PO DAILY 04/05/25 04/18/25 History magnesium 400 tab PO DAILY 04/05/25 04/18/25 History prednisone 5 mg tablet 5 mg PO DAILY PRN Other 04/05/25 04/18/25 History apixaban 5 mg tablet (Eliquis) 5 mg PO BID 30 days #60 tabs 04/08/25 04/18/25 Rx metoprolol succinate 50 mg 75 mg PO BID 04/18/25 04/18/25 History tablet,extended release 24 hr Patient History Surgical History No pertinent past surgical history Social History Smoking Status: Never smoker Second Hand Exposure: No; Do You Dip or Chew Tobacco: No; Tobacco Cessation Education Requested by Patient: No Hx Alcohol Use: No Hx Substance Use: No Preferred Language: Persian Communication Ability: Effective Jute Bag Clipper Required: No Beliefs That Will Affect Care: None Current Living Situation: Spouse Other Information That Helps Us Care for You: No Feels Safe at Home: Yes Safety Concerns: Feels Safe At This Time Assistive Devices: Glasses Review of Systems Review of Systems: A full 10 point review of systems is otherwise negative unless noted above. Physical Exam Physical Exam: GEN: AAOx3; NAD HEENT: No JVD CV: Irregularly Irregular (atrial flutter); No M/R/G PULM: CTA b/l; no W/R/R ABD: soft; NTND EXT: no lower extremity edema. Results & Data Vital Signs (Past 12 Hours) Vital Signs Temp Pulse Pulse Resp BP Pulse Ox O2 Del Method 04/19/25 08:00 111 H 04/19/25 07:50 36.3 C L 103 H 20 138/99 91 Room Air 04/19/25 03:42 36.5 C 107 H 18 128/87 93 Room Air Results CMP Results: Sodium 139 mmol/L (136-145) 04/19/25 Potassium 3.9 mmol/L (3.5-5.1) 04/19/25 Chloride 111 mmol/L (98-107) H 04/19/25 Carbon Dioxide 23 mmol/L (21-32) 04/19/25 Anion Gap 5 (3-11) 04/19/25 BUN 16 mg/dl (6-23) 04/19/25 Creatinine 1.28 mg/dl (0.6-1.2) H 04/19/25 eGFR 41.83 04/19/25 BUN/Creatinine Ratio 12.5 (10-20) 04/19/25 Glucose 117 mg/dl (70-99(Fasting)) H 04/19/25 Calcium 8.1 mg/dl (8.6-10.3) L 04/19/25 Phosphorus 2.9 mg/dl (2.5-4.9) 04/07/25 Total Bilirubin 0.7 mg/dl (0.2-1.0) 04/19/25 AST 42 U/L (13-39) H 04/19/25 ALT 61 U/L (7-52) H 04/19/25 Alkaline Phosphatase 42 U/L (34-104) 04/19/25 Total Protein 5.2 gm/dl (6.0-8.3) L 04/19/25 Albumin 3.5 gm/dl (3.4-5.0) 04/19/25 Globulin 1.7 gm/dl (2.5-4.0) L 04/19/25 Albumin/Globulin Ratio 2.1 (0.9-2) H 04/19/25 PG Care Time/CCT Total # of Minutes Spent Total Time Spent with Patient: Total time spent is greater than 50% in coordination of care (as documented) at patient's floor/unit and/or counseling patient: [place] [address] INT INP/OBS CARE 3/75MIN Patient Type New History Comprehensive Exam Comprehensive Medical Decision Making High Complexity Diagnoses Atrial flutter with rapid ventricular response I48.92 Time Spent (min) 85 Updated Medication List Medication Instructions Recorded Confirmed Type adalimumab 40 mg/0.4 mL 40 mg subcut DIRECTED 04/05/25 04/18/25 History subcutaneous pen kit (Humira(CF) Pen) atorvastatin 40 mg tablet 40 mg PO DAILY 04/05/25 04/18/25 History cranberry 1 tab PO DAILY ##0 04/05/25 04/18/25 History duloxetine 30 mg capsule,delayed 30 mg PO DAILY 04/05/25 04/18/25 History release famotidine 40 mg tablet 40 mg PO DAILY 04/05/25 04/18/25 History folic acid 1 mg tablet 1 mg PO DAILY 04/05/25 04/18/25 History hydroxyzine HCl 25 mg tablet 50 mg PO HS PRN Hives 04/05/25 04/18/25 History leflunomide 20 mg tablet (Arava) 20 mg PO DAILY 04/05/25 04/18/25 History losartan 50 mg tablet 50 mg PO DAILY 04/05/25 04/18/25 History magnesium 400 tab PO DAILY 04/05/25 04/18/25 History prednisone 5 mg tablet 5 mg PO DAILY PRN Other 04/05/25 04/18/25 History apixaban 5 mg tablet (Eliquis) 5 mg PO BID 30 days #60 tabs 04/08/25 04/18/25 Rx metoprolol succinate 50 mg 75 mg PO BID 04/18/25 04/18/25 History tablet,extended release 24 hr
[2025-04-19] MEDS: PROMETHAZINE 6.25 MG/50.25 ML BAG IV STA (14:19)
[2025-04-19] MEDS: KETAMINE HCL INJ 50 MG/ML 10 ML VIAL ONE (14:45)
[2025-04-19] MEDS ORDERED: 0.2 MICRON FILTER SET 1 EACH IV ONE (16:35)
[2025-04-19] MEDS ORDERED: AMIODARONE 200 MG TAB PO SCH (17:00)
[2025-04-19] MEDS: AMIODARONE 200 MG TAB PO SCH ×2 (17:33→17:40)
[2025-04-20 04:55] LABS: Hematocrit (blood only) 37.3 % (37.0-47.0); Hemoglobin 11.8 g/dl (12.0-16.0); Mean Corpuscular Hemoglobin 29.9 pg (25.0-34.0); Mean Corpuscular Volume 94.7 fL (80.0-100.0); Platelet Count 160 K/uL (130-400); RDW Standard Deviation 47.3 fL (36.4-46.3); Red Blood Count 3.94 M/uL (4.20-5.40); White Blood Count 7.31 K/ul (4.8-10.8)
[2025-04-20 05:14] LABS: Alanine Aminotransferase 49.0 U/L (7-52); Albumin Globulin Ratio 1.6 (0.9-2); Alkaline Phosphatase 46.0 U/L (34-104); Anion Gap 6.0 (3-11); Bilirubin,Total 0.8 mg/dl (0.2-1.0); Blood Urea Nitrogen 21.0 mg/dl (6-23); Calcium 8.0 mg/dl (8.6-10.3); Carbon Dioxide 22.0 mmol/L (21-32); Chloride 109.0 mmol/L (98-107); Creatinine Clr Calc Pharmacy 24.8 ml/min; Globulin 2.1 gm/dl (2.5-4.0); Glucose 130.0 mg/dl (70-99(Fasting)); Magnesium 1.9 mg/dl (1.7-2.4); Potassium 4.2 mmol/L (3.5-5.1); Sodium 137.0 mmol/L (136-145); Total Protein 5.5 gm/dl (6.0-8.3)
--- NOTE | 2025-04-20 10:35 | Hospitalist Progress Note ---
Date of Service April 20, 2025 Assessment & Plan (1) Atrial fibrillation with rapid ventricular response: (2) Palpitations: (3) Dizziness: Plan: 89-year-old female with history of rheumatoid arthritis, atrial flutter, polymyalgia rheumatica, GERD, generalized anxiety disorder, dyslipidemia, hypertension, CKD stage III and other medical problems who was recently hospitalized and was treated for new onset atrial flutter with RVR and hypokalemia presents with history of's significant dizziness which has been going on for the last 1 week Atrial Fibrillation with RVR H/O atrial flutter with RVR s/p cardioversion on 04/08/25 CXR: No clear consolidation or pulmonary edema /pleural effusion TSH mildly elevated 4.94, normal free T4. PCP to repeat thyroid function test in 6 weeks ECHO on 04/04/25: EF 65 to 69%. Left ventricular wall motion normal. Left atri um is moderately enlarged. Mild aortic valve sclerosis is present. Moderate mitral regurgitation is present. Mild tricuspid regurgitation is present. No evidence of pulmonary hypertension. S/p Cardioversion on 04/19/25 which was successful However, flipped back to Afib this AM Chest discomfort this AM resolved after a dose of ativan for her anxiety Discussed with Recreation Programmer who recommends focusing on rate control Metoprolol succinate resumed at increased dose of 100mg BID (was on 75mg BID at home) Amiodarone discontinued Started on Cardizem ER 120mg daily per Cards Continue MANAGER COUNCIL eliquis Will monitor today Hypertensive urgency on presentation Monitor BP with med changes above Chronic diarrhea H/O intussusception as a child No diarrhea Acute kidney injury CKD 3 Cr baseline from [facility] is 1.1-1.2 Cr is 1.49 today Avoid nephrotoxic agents as able Continue to hold losartan for now Monitor renal function Mild transaminitis H/O hepatitis (unknown type per patient) Denies any alcohol use LFT normal today Rheumatoid arthritis Follows with rheumatology as outpatient Continue home medications Hyperlipidemia Continue Lipitor Generalized anxiety disorder Continue Cymbalta Hydroxyzine as needed GERD Continue PPI, famotidine DVT Px: Eliquis CODE STATUS Full code Patient stated not to update . That she will update him herself I spent a total of 50 minutes coordinating, documenting and providing care for this patient excluding time spent in performance of separately billed services Admission and Anticipated Discharge Date Admission Date: April 18, 2025 Subjective Patient seen and examined. She had cardioversion extubated which was successful. However, she flipped back to [facility] at 5:42 AM this morning. Currently reports chest discomfort. Anxious about her heart rate and BP No palpitation. Reported nausea and dizziness earlier Physical Exam Constitutional: + well hydrated; no acute distress Eyes: PERRL, conjunctivae normal, anicteric sclerae ENMT: external ear and nose normal, oropharynx normal Respiratory: normal respiratory effort, lungs clear to auscultation Cardiovascular: Rate/Rhythm: + tachycardic and + irregularly irregular Gastrointestinal (Abdomen): normal bowel sounds, soft, nontender, no hepatosplenomegaly Musculoskeletal: No pedal edema Neurologic: PERRL, EOMI, accommodation nl, no face palsy, no dysarthria Psychiatric: AOx3. Anxious Results & Data Results & Data Vital Signs (Past 12 Hours) Vital Signs Temp Pulse Pulse Resp BP Pulse Ox O2 Del Method 04/20/25 08:00 Room Air 04/20/25 07:31 36.5 C 104 H 20 168/135 H 90 Room Air 04/20/25 05:42 53 L 18 04/20/25 05:12 54 L 25 H 04/20/25 05:00 53 L 15 04/20/25 04:51 64 12 04/20/25 04:33 54 L 19 04/20/25 03:45 90 23 04/20/25 03:36 53 L 21 04/20/25 03:27 53 L 15 04/20/25 03:18 53 L 23 04/20/25 03:06 53 L 18 04/20/25 02:51 54 L 15 04/20/25 02:30 53 L 22 04/20/25 02:27 51 L 22 04/20/25 02:18 52 L 24 04/20/25 01:45 54 L 17 04/20/25 01:36 51 L 20 04/20/25 01:24 53 L 04/20/25 01:06 47 L 14 04/20/25 00:42 48 L 18 04/20/25 00:39 49 L 20 04/20/25 00:21 57 L 17 04/20/25 00:12 56 L 21 04/19/25 23:48 55 L 20 04/19/25 23:39 54 L 22 04/19/25 23:12 54 L 20 04/19/25 23:09 53 L 22 04/19/25 22:45 56 L 16 Laboratory Results Abnormal lab results 04/20/25 Range/Units 04:40 RBC 3.94 L (4.20-5.40) M/uL Hgb 11.8 L (12.0-16.0) g/dl MCHC 31.6 L (32.0-36.0) g/dL RDW Std Deviation 47.3 H (36.4-46.3) fL Chloride 109 H (98-107) mmol/L Creatinine 1.49 H (0.6-1.2) mg/dl Glucose 130 H (70-99(Fasting)) mg/dl Calcium 8.0 L (8.6-10.3) mg/dl Total Protein 5.5 L (6.0-8.3) gm/dl Globulin 2.1 L (2.5-4.0) gm/dl
--- NOTE | 2025-04-20 10:54 | Cardiology Progress Note ---
Date of Service April 20, 2025 Assessment & Plan (1) Atrial flutter with rapid ventricular response: Plan: This is an 84 year old female with a pmhx of Atrial flutter who presents with Atrial flutter with RVR. Denies current chest pain. No N/V/CHOWDHURY; afebrile. No PND or orthopnea. She appears to be minimally symptomatic despite the fast heart rate. She was recently cardioverted a few weeks prior but reverted back to Atrial flutter shortly thereafter. She has not been on an antiarrhythmic previously. She is currently on an IV amiodarone gtt at 0.5mg/min. 1. Atrial flutter with variable AV block and RVR -back in Aflutter at a HR of 105 bpm -stop amiodarone -add back toprol 100mg BID -start Cardizem 60mg qday -we will aim for a rate control strategy as she has failed DCCV x 2 -needs outpatient EP consultation to consider ablation. -plan for DC home tomorrow I provided 55 min of care to the patient in regards to management of Atrial flutter with RVR. Dexter Nugent MD Admission and Anticipated Discharge Date Admission Date: April 18, 2025 Subjective She had cardioversion extubated which was successful. However, she flipped back to A-fib at 5:42 AM this morning. Currently anxious Review of Systems Review of Systems: A full 10 point review of systems is otherwise negative unless noted above. Physical Exam Physical Exam: GEN: AAOx3; NAD HEENT: No JVD CV: Irregularly Irregular (atrial flutter); No M/R/G PULM: CTA b/l; no W/R/R ABD: soft; NTND EXT: no lower extremity edema. Results & Data Vital Signs (Past 12 Hours) Vital Signs Temp Pulse Pulse Resp BP Pulse Ox O2 Del Method 04/20/25 10:41 36.4 C L 101 H 20 147/108 H 90 Room Air 04/20/25 08:00 Room Air 04/20/25 07:31 36.5 C 104 H 20 168/135 H 90 Room Air 04/20/25 05:42 53 L 18 04/20/25 05:12 54 L 25 H 04/20/25 05:00 53 L 15 04/20/25 04:51 64 12 04/20/25 04:33 54 L 19 04/20/25 03:45 90 23 04/20/25 03:36 53 L 21 04/20/25 03:27 53 L 15 04/20/25 03:18 53 L 23 04/20/25 03:06 53 L 18 04/20/25 02:51 54 L 15 04/20/25 02:30 53 L 22 04/20/25 02:27 51 L 22 04/20/25 02:18 52 L 24 04/20/25 01:45 54 L 17 04/20/25 01:36 51 L 20 04/20/25 01:24 53 L 20 04/20/25 01:06 47 L 14 04/20/25 00:42 48 L 18 04/20/25 00:39 49 L 20 04/20/25 00:21 57 L 17 04/20/25 00:12 56 L 21 04/19/25 23:48 55 L 20 04/19/25 23:39 54 L 22 04/19/25 23:12 54 L 20 04/19/25 23:09 53 L 22 Results BMP Results: Sodium 137 mmol/L (136-145) 04/20/25 Potassium 4.2 mmol/L (3.5-5.1) 04/20/25 Chloride 109 mmol/L (98-107) H 04/20/25 Carbon Dioxide 22 mmol/L (21-32) 04/20/25 Anion Gap 6 (3-11) 04/20/25 BUN 21 mg/dl (6-23) 04/20/25 Creatinine 1.49 mg/dl (0.6-1.2) H 04/20/25 Glucose 130 mg/dl (70-99(Fasting)) H 04/20/25 Results Cardiology Web EHR Widget: Cardiology Consultation 04/19/25 13:38 Cardiology Progress Note 04/08/25 10:42 Electrocardiogram 04/20/25 06:32 Echocardiogram 04/04/25 00:00 Transesophageal Echocardiogram 04/08/25 15:56 Troponin I High Sens 11.5 pg/ml (0-14) 04/18/25 14:30 APTT 24 Seconds (21-31) 04/05/25 17:27 PT 11.7 Seconds (9.0-12.0) 04/18/25 14:30 INR 1.1 (0.9-1.1) 04/18/25 14:30 Sodium 137 mmol/L (136-145) 04/20/25 04:40 Potassium 4.2 mmol/L (3.5-5.1) 04/20/25 04:40 BUN 21 mg/dl (6-23) 04/20/25 04:40 Creatinine 1.49 mg/dl (0.6-1.2) H 04/20/25 04:40 Glucose 130 mg/dl (70-99(Fasting)) H 04/20/25 04:40 Magnesium 1.9 mg/dl (1.7-2.4) 04/20/25 04:40 AST 27 U/L (13-39) 04/20/25 04:40 ALT 49 U/L (7-52) 04/20/25 04:40 TSH 4.947 uIu/ml (0.300-4.500) H 04/18/25 14:30 WBC 7.31 K/ul (4.8-10.8) 04/20/25 04:40 Hgb 11.8 g/dl (12.0-16.0) L 04/20/25 04:40 Plt Count 160 K/uL (130-400) 04/20/25 04:40 Cardioversion (Other Rpt) 04/19/25 12:58 PG Care Time/CCT Total # of Minutes Spent Total Time Spent with Patient: Total time spent is greater than 50% in coordination of care (as documented) at patient's floor/unit and/or counseling patient: Coding [place] [address] SUB INP/OBS CARE 3/50MIN Patient Type Established History Comprehensive Exam Comprehensive Medical Decision Making High Complexity Diagnoses Atrial flutter with rapid ventricular response I48.92 Time Spent (min) 55 Updated Medication List Medication Instructions Recorded Confirmed Type adalimumab 40 mg/0.4 mL 40 mg subcut DIRECTED 04/05/25 04/18/25 History subcutaneous pen kit (Humira(CF) Pen) atorvastatin 40 mg tablet 40 mg PO DAILY 04/05/25 04/18/25 History cranberry 1 tab PO DAILY ##0 04/05/25 04/18/25 History duloxetine 30 mg capsule,delayed 30 mg PO DAILY 04/05/25 04/18/25 History release famotidine 40 mg tablet 40 mg PO DAILY 04/05/25 04/18/25 History folic acid 1 mg tablet 1 mg PO DAILY 04/05/25 04/18/25 History hydroxyzine HCl 25 mg tablet 50 mg PO HS PRN Hives 04/05/25 04/18/25 History leflunomide 20 mg tablet (Arava) 20 mg PO DAILY 04/05/25 04/18/25 History losartan 50 mg tablet 50 mg PO DAILY 04/05/25 04/18/25 History magnesium 400 tab PO DAILY 04/05/25 04/18/25 History prednisone 5 mg tablet 5 mg PO DAILY PRN Other 04/05/25 04/18/25 History apixaban 5 mg tablet (Eliquis) 5 mg PO BID 30 days #60 tabs 04/08/25 04/18/25 Rx metoprolol succinate 50 mg 75 mg PO BID 04/18/25 04/18/25 History tablet,extended release 24 hr
--- NOTE | 2025-04-20 15:10 | Electrocardiogram Report ---
Test Reason : Blood Pressure : */* mmHG Vent. Rate : 116 BPM Atrial Rate : * BPM P-R Int : * ms QRS Dur : 62 ms QT Int : 308 ms P-R-T Axes : * 31 43 degrees QTcB Int : 428 ms Atrial flutter with variable A-V block Abnormal ECG When compared with ECG of 07-Apr-2025 06:09, No significant change was found Confirmed by Bruce Pena ([id number]) on 04/20/2025 3:09:44 PM Referred By: Tila Burns Confirmed By: Bruce Pena
[2025-04-20] MEDS ORDERED: ALBUTEROL 0.083% NEBU SOLN 3 ML VIAL NEB PRN (16:12)
--- NOTE | 2025-04-20 19:03 | XRay Report ---
CHEST (AP PORTABLE): COMPARISON: 05/05/2025 Reason for exam: assess hypoxia FINDINGS: Heart remains enlarged with increasing central vascular congestion and increasing pleural effusions. Upper lung zones are relatively clear. IMPRESSION: Moderate CHF, increased radiographically as compared to the previous study of 04/18/2025. Electronically signed by Matthew Vanegas 04-20-2025 7:01 PM
[2025-04-20] MEDS: METOPROLOL SUCC 50MG EXT REL TAB PO SCH (20:33)
[2025-04-21 05:49] LABS: Hematocrit (blood only) 34.3 % (37.0-47.0); Hemoglobin 11.5 g/dl (12.0-16.0); Mean Corpuscular Hemoglobin 30.6 pg (25.0-34.0); Mean Corpuscular Volume 91.2 fL (80.0-100.0); Platelet Count 122 K/uL (130-400); RDW Standard Deviation 42.9 fL (36.4-46.3); Red Blood Count 3.76 M/uL (4.20-5.40); White Blood Count 8.74 K/ul (4.8-10.8)
[2025-04-21 06:06] LABS: Anion Gap 6.0 (3-11); Blood Urea Nitrogen 15.0 mg/dl (6-23); Calcium 8.2 mg/dl (8.6-10.3); Carbon Dioxide 24.0 mmol/L (21-32); Chloride 105.0 mmol/L (98-107); Creatinine Clr Calc Pharmacy 31.0 ml/min; Glucose 104.0 mg/dl (70-99(Fasting)); Magnesium 1.8 mg/dl (1.7-2.4); Potassium 4.0 mmol/L (3.5-5.1); Sodium 135.0 mmol/L (136-145)
[2025-04-21] MEDS: FUROSEMIDE INJ 20 MG/2 ML VIAL IV ONE (09:15)
--- NOTE | 2025-04-21 10:27 | Hospitalist Progress Note ---
Date of Service April 21, 2025 Assessment & Plan (1) Atrial fibrillation with rapid ventricular response: (2) Palpitations: (3) Dizziness: Plan: 89-year-old female with history of rheumatoid arthritis, atrial flutter, polymyalgia rheumatica, GERD, generalized anxiety disorder, dyslipidemia, hypertension, CKD stage III and other medical problems who was recently hospitalized and was treated for new onset atrial flutter with RVR and hypokalemia presents with history of's significant dizziness which has been going on for the last 1 week Atrial Fibrillation with RVR H/O atrial flutter with RVR s/p cardioversion on 04/08/25 CXR: No clear consolidation or pulmonary edema /pleural effusion TSH mildly elevated 4.94, normal free T4. PCP to repeat thyroid function test in 6 weeks ECHO on 04/04/25: EF 65 to 69%. Left ventricular wall motion normal. Left atri um is moderately enlarged. Mild aortic valve sclerosis is present. Moderate mitral regurgitation is present. Mild tricuspid regurgitation is present. No evidence of pulmonary hypertension. S/p Cardioversion on 04/19/25 which was successful However, flipped back to Afib on AM of 04/20/25 Continue Metoprolol succinate at increased dose of 100mg BID (was on 75mg BID at home) Amiodarone was discontinued Cardizem ER was started at 120mg daily. Discussed with Residential Recycle Driver who recommends increasing to 120mg BID Continue CORPORATE TRAVEL COUNSELOR eliquis CXR on 04/20/25 noted some left pleural effusion. Patient has acute hypoxic respiratory failure today IV lasix given Continue incentive spirometer and flutter May need oxygen with ambulation on discharge based on ambulatory test today Hypertensive urgency on presentation BP normal so far Chronic diarrhea H/O intussusception as a child No diarrhea Acute kidney injury CKD 3 Cr baseline from [facility] is 1.1-1.2 Cr is 1.18 today Avoid nephrotoxic agents as able Continue to hold losartan for now Monitor renal function Mild transaminitis H/O hepatitis (unknown type per patient) Denies any alcohol use LFT normalized Rheumatoid arthritis Follows with rheumatology as outpatient Continue home medications Hyperlipidemia Continue Lipitor Generalized anxiety disorder Continue Cymbalta Hydroxyzine as needed GERD Continue PPI, famotidine DVT Px: Eliquis CODE STATUS Full code PT/OT shannon I spent a total of 50 minutes coordinating, documenting and providing care for this patient excluding time spent in performance of separately billed services Admission and Anticipated Discharge Date Admission Date: April 18, 2025 Subjective Patient seen and examined Denied any new complaints Reported falling overnight when she tried to get up to use the toilet. No head trauma/dizziness/LOC. Per RN, this was not witnessed and that patient had told the night RN that she had got back in bed herself. Denied chest pain, palpitation, dizziness, cough or shortness of breath Had updated daughter and about findings yesterday evening during af ternoon rounds yesterday when they visited Physical Exam Constitutional: + well hydrated; no acute distress Eyes: PERRL, conjunctivae normal, anicteric sclerae ENMT: external ear and nose normal, oropharynx normal Respiratory: normal respiratory effort; no respiratory distress Diminished breath sounds Cardiovascular: Rate/Rhythm: + tachycardic and + irregularly irregular Gastrointestinal (Abdomen): normal bowel sounds, soft, nontender, no hepatosplenomegaly Musculoskeletal: No pedal edema Neurologic: PERRL, EOMI, accommodation nl, no face palsy, no dysarthria Psychiatric: A+Ox3, euthymic affect Results & Data Results & Data Vital Signs (Past 12 Hours) Vital Signs Temp Pulse Pulse Pulse Pulse Pulse Resp 04/21/25 09:15 119 H 114 H 04/21/25 09:13 113 H 18 04/21/25 07:33 37.0 C 112 H 20 04/21/25 07:11 112 H 04/21/25 04:05 36.8 C 111 H 17 04/21/25 02:13 105 H 04/21/25 00:18 36.9 C 83 17 Resp Resp BP Pulse Ox Pulse Ox Pulse Ox O2 Del Method 04/21/25 09:15 19 16 89 L 91 04/21/25 09:13 129/98 91 Room Air 04/21/25 07:33 141/93 H 95 Nasal Cannula 04/21/25 07:11 04/21/25 04:05 135/89 91 Nasal Cannula 04/21/25 02:13 04/21/25 00:18 132/88 90 Room Air O2 Flow Rate 04/21/25 09:15 04/21/25 09:13 04/21/25 07:33 2 04/21/25 07:11 04/21/25 04:05 2 04/21/25 02:13 04/21/25 00:18 Laboratory Results Abnormal lab results 04/21/25 Range/Units 05:17 RBC 3.76 L (4.20-5.40) M/uL Hgb 11.5 L (12.0-16.0) g/dl Hct 34.3 L (37.0-47.0) % Plt Count 122 L (130-400) K/uL Sodium 135 L (136-145) mmol/L Glucose 104 H (70-99(Fasting)) mg/dl Calcium 8.2 L (8.6-10.3) mg/dl Phosphorus 2.0 L (2.5-4.9) mg/dl
--- NOTE | 2025-04-21 11:46 | Cardiology Progress Note ---
Date of Service April 21, 2025 Assessment & Plan (1) Atrial flutter with rapid ventricular response: Plan: This is an 84 year old female with a pmhx of Atrial flutter who presents with Atrial flutter with RVR. Denies current chest pain. No N/V/CHOWDHURY; afebrile. No PND or orthopnea. She appears to be minimally symptomatic despite the fast heart rate. She was recently cardioverted a few weeks prior but reverted back to Atrial flutter shortly thereafter. She has not been on an antiarrhythmic previously. She is currently on an IV amiodarone gtt at 0.5mg/min. 1. Atrial flutter with variable AV block and RVR -back in Aflutter at a HR of 118 bpm -continue toprolk at 100mg BID -increase Cardizem to 120mg BID -we will aim for a rate control strategy as she has failed DCCV x 2 -needs outpatient EP consultation to consider ablation. -mild pulmonary congestion s/p recent DCCV attempt -recommend 40mg IV lasix x 1. I provided 55 min of care to the patient in regards to management of Atrial flutter with RVR. Dexter Nugent MD Admission and Anticipated Discharge Date Admission Date: April 18, 2025 Subjective Feels a bit better today No chest pain. No N/V/CHOWDHURY; afebrile Was hypoxic yesterday. Review of Systems Review of Systems: A full 10 point review of systems is otherwise negative unless noted above. Physical Exam Physical Exam: GEN: AAOx3; NAD HEENT: No JVD CV: Irregularly Irregular (atrial flutter); No M/R/G PULM: CTA b/l; no W/R/R ABD: soft; NTND EXT: no lower extremity edema. Results & Data Vital Signs (Past 12 Hours) Vital Signs Temp Pulse Pulse Pulse Pulse Pulse Resp 04/21/25 11:32 36.7 C 118 H 18 04/21/25 09:15 04/21/25 09:15 119 H 114 H 04/21/25 09:13 113 H 18 04/21/25 07:33 37.0 C 112 H 20 04/21/25 07:11 112 H 04/21/25 04:05 36.8 C 111 H 17 04/21/25 02:13 105 H 04/21/25 00:18 36.9 C 83 17 Resp Resp BP Pulse Ox Pulse Ox Pulse Ox O2 Del Method 04/21/25 11:32 135/93 90 Nasal Cannula 04/21/25 09:15 Room Air 04/21/25 09:15 19 16 89 L 91 04/21/25 09:13 129/98 91 Room Air 04/21/25 07:33 141/93 H 95 Nasal Cannula 04/21/25 07:11 04/21/25 04:05 135/89 91 Nasal Cannula 04/21/25 02:13 04/21/25 00:18 132/88 90 Room Air O2 Flow Rate 04/21/25 11:32 2 04/21/25 09:15 04/21/25 09:15 04/21/25 09:13 04/21/25 07:33 2 04/21/25 07:11 04/21/25 04:05 2 04/21/25 02:13 04/21/25 00:18 PG Care Time/CCT Total # of Minutes Spent Total Time Spent with Patient: Total time spent is greater than 50% in coordination of care (as documented) at patient's floor/unit and/or counseling patient: C[place] [address] SUB INP/OBS CARE 3/50MIN Patient Type Established History Comprehensive Exam Comprehensive Medical Decision Making High Complexity Diagnoses Atrial flutter with rapid ventricular response I48.92 Time Spent (min) 55
--- NOTE | 2025-04-21 13:13 | Electrocardiogram Report ---
Test Reason : Blood Pressure : */* mmHG Vent. Rate : 101 BPM Atrial Rate : * BPM P-R Int : * ms QRS Dur : 70 ms QT Int : 356 ms P-R-T Axes : * 34 11 degrees QTcB Int : 461 ms Atrial flutter with variable A-V block Nonspecific ST abnormality Abnormal ECG When compared with ECG of 20-Apr-2025 06:30, (unconfirmed) No significant change Confirmed by Bruce Pena ([id number]) on 04/21/2025 1:13:02 PM Referred By: Tila Burns Confirmed By: Bruce Pena
--- NOTE | 2025-04-21 13:15 | Electrocardiogram Report ---
Test Reason : Blood Pressure : */* mmHG Vent. Rate : 103 BPM Atrial Rate : * BPM P-R Int : * ms QRS Dur : 68 ms QT Int : 354 ms P-R-T Axes : * 40 17 degrees QTcB Int : 463 ms Atrial flutter with variable A-V block Nonspecific ST abnormality Abnormal ECG When compared with ECG of 19-Apr-2025 05:44, (unconfirmed) No significant change Confirmed by Bruce Pena ([id number]) on 04/21/2025 1:15:02 PM Referred By: Tila Burns Confirmed By: Bruce Pena
[2025-04-21] MEDS: POT PHOSPHATE MONOBASIC W/ SOD TAB PO ONE (14:24)
--- NOTE | 2025-04-21 14:29 | Electrocardiogram Report ---
Test Reason : Blood Pressure : */* mmHG Vent. Rate : 111 BPM Atrial Rate : 110 BPM P-R Int : * ms QRS Dur : 66 ms QT Int : 362 ms P-R-T Axes : * 38 27 degrees QTcB Int : 492 ms Atrial flutter with variable A-V block Low voltage QRS QTcB >= 480 msec Abnormal ECG When compared with ECG of 19-Apr-2025 05:43, (unconfirmed) No significant change Confirmed by Bruce Pena ([id number]) on 04/21/2025 2:29:37 PM Referred By: Tila Burns Confirmed By: Bruce Pena
--- NOTE | 2025-04-21 14:31 | Electrocardiogram Report ---
Test Reason : Blood Pressure : */* mmHG Vent. Rate : 99 BPM Atrial Rate : 220 BPM P-R Int : * ms QRS Dur : 66 ms QT Int : 364 ms P-R-T Axes : * 38 31 degrees QTcB Int : 467 ms Atrial flutter with variable A-V block Abnormal ECG When compared with ECG of 18-Apr-2025 14:21, (unconfirmed) No significant change Confirmed by Bruce Pena ([id number]) on 04/21/2025 2:31:01 PM Referred By: Tila Burns Confirmed By: Bruce Pena
[2025-04-22 06:35] LABS: Hematocrit (blood only) 35.4 % (37.0-47.0); Hemoglobin 11.8 g/dl (12.0-16.0); Mean Corpuscular Hemoglobin 30.1 pg (25.0-34.0); Mean Corpuscular Volume 90.3 fL (80.0-100.0); Platelet Count 130 K/uL (130-400); RDW Standard Deviation 42.9 fL (36.4-46.3); Red Blood Count 3.92 M/uL (4.20-5.40); White Blood Count 7.06 K/ul (4.8-10.8)
[2025-04-22 07:13] LABS: Anion Gap 7.0 (3-11); Blood Urea Nitrogen 13.0 mg/dl (6-23); Calcium 8.4 mg/dl (8.6-10.3); Carbon Dioxide 26.0 mmol/L (21-32); Chloride 105.0 mmol/L (98-107); Creatinine Clr Calc Pharmacy 35.2 ml/min; Glucose 104.0 mg/dl (70-99(Fasting)); Magnesium 1.8 mg/dl (1.7-2.4); Potassium 3.4 mmol/L (3.5-5.1); Sodium 138.0 mmol/L (136-145)
[2025-04-22] MEDS ORDERED: POTASSIUM PHOS 3 MMOL/1 ML INFUSION IV STA (07:37)
[2025-04-22] MEDS: POTASSIUM PHOSPHATE 21 MMOL in SODIUM CHLORIDE 0.9% 500 ML IV ONE (08:00)
--- NOTE | 2025-04-22 09:18 | Cardiology Progress Note ---
Date of Service April 22, 2025 Assessment & Plan (1) Atrial flutter with rapid ventricular response: Plan Assessment: 84 year old female that presented with A-flutter with RVR, recent A- flutter diagnosis with failed DCCV x2. Plan: Atrial flutter with RVR -Rates show substantial improvement, Continue on Toprol xl, and Cardizem for rate control. -Euvolemic on exam. -Continue Eliquis for oral anticoagulation therapy. Denies any mat bleeding, labs stable. -Continue Losartan for BP control -Continue Atorvastatin for lipid control. -Discussed with patient that moving forward we would like her to see EP outpatient to be considered for possible cardiac ablation. patient verbalizes understanding. -No further cardiac work up is needed during course of hospital stay, patient is appropriate for discharge from a cardiac perspective when cleared by primary team. She will need close cardiology follow up. Referral for EP will be placed in [facility]. Case has been discussed with Dr. Montejo. Further recommendations regarding plan of care as per his assessment. I spent a total of 30 minutes on the date of service in preparation, delivery, documentation of the care provided to the patient excluding any time spent in the performance of separately billed services. MARTIN De La Torre [facility] [address] Cardiology [facility] Admission and Anticipated Discharge Date Admission Date: April 18, 2025 Supervising Physician Co-Signing Physician Notes Attending attestation: Case reviewed with the advanced practitioner. I have personally performed a history and physical examination on the patient. I have reviewed the advanced practitioner's documentation on the date of service referenced in note, and I agree with, and take responsibility for the plan of care. Stable for discharge on Eliquis 5 mg twice daily, metoprolol 100 mg twice daily, diltiazem CD1 120 mg twice daily. Continue losartan 50 mg daily for blood pressure control. Patient already has an outpatient follow-up visit with me as I had followed her during her hospital stay in March,. Referral placed in her outpatient chart for outpatient EP consultation. I spent a total of 20 minutes coordinating, documenting, and providing care for this patient excluding time spent in the performance of separately billed services or time spent by another provider. Josue Montejo, Subjective 04/22/2025: Patient seen and examined in follow up today. Feeling well from a cardiac perspective. Offers no acute concerns. Denies chest pain, pressure or palpitations, no shortness of breath, PND, pre-syncope, syncope or edema. Labs, vitals, diagnostics, telemetry and documentation reviewed. Telemetry reviewed showing A-Flutter rates 70-100, with occasional burst up to 119bpm. No acute events overnight. Review of Systems Review of Systems: All systems reviewed & are unremarkable except as noted in HPI & below Physical Exam Constitutional: well developed and well nourished; no acute distress and not ill appearing Neck: normal visual inspection and trachea midline Respiratory: normal respiratory effort, lungs clear to auscultation Cardiovascular: Rate/Rhythm: + irregularly irregular Heart Sounds: normal S1 and normal S2 Vessels: no JVD Extremities: no edema Skin: no rashes, warm and dry Psychiatric: A+Ox3, euthymic affect Results & Data Vital Signs (Past 12 Hours) Vital Signs Temp Pulse Pulse Resp BP Pulse Ox O2 Del Method 04/22/25 08:19 36.7 C 118 H 23 116/87 97 Nasal Cannula 04/22/25 08:00 117 H 04/22/25 08:00 Nasal Cannula 04/22/25 04:21 117 H 04/22/25 04:16 36.8 C 116 H 19 147/94 H 97 Nasal Cannula 04/21/25 23:34 37.2 C 118 H 17 142/98 H 97 Nasal Cannula O2 Flow Rate 04/22/25 08:19 3 04/22/25 08:00 04/22/25 08:00 2 04/22/25 04:21 04/22/25 04:16 2 04/21/25 23:34 2 Laboratory Results CBC 04/22/25 Range/Units 06:11 WBC 7.06 (4.8-10.8) K/ul RBC 3.92 L (4.20-5.40) M/uL Hgb 11.8 L (12.0-16.0) g/dl Hct 35.4 L (37.0-47.0) % Plt Count 130 (130-400) K/uL Comprehensive Metabolic Panel 04/22/25 Range/Units 06:11 Sodium 138 (136-145) mmol/L Potassium 3.4 L (3.5-5.1) mmol/L Chloride 105 (98-107) mmol/L Carbon Dioxide 26 (21-32) mmol/L BUN 13 (6-23) mg/dl Creatinine 1.04 (0.6-1.2) mg/dl Glucose 104 H (70-99(Fasting)) mg/dl Calcium 8.4 L (8.6-10.3) mg/dl Intake and Output 04/21/25 04/22/25 04/22/25 22:59 06:59 14:59 Other: # Unmeasured Voids 1 2 Weight 65.3 kg PG Care Time/CCT Total # of Minutes Spent Total Time Spent: 30 Total Time Spent with Patient: Total time spent is greater than 50% in coordination of care (as documented) at patient's floor/unit and/or counseling patient: C[place] [address] SUB INP/OBS CARE 3/50MIN Patient Type Established Medical Decision Making High Complexity Diagnoses Atrial flutter with rapid ventricular response I48.92 Time Spent (min) 30
[2025-04-22 10:49] VITALS: RESP 21; TEMP 97.5; O2SAT 94
[2025-04-22] MEDS: LOSARTAN POTASSIUM 50 MG TAB PO SCH (10:55)
[2025-04-22] MEDS: LEFLUNOMIDE 10 MG TAB PO SCH (12:28)
--- NOTE | 2025-04-22 12:59 | Discharge Summary ---
Date of Service April 22, 2025 Admission HPI Per Admitting Provider Patient is a 89-year-old female with history of rheumatoid arthritis, atrial flutter, polymyalgia rheumatica, GERD, generalized anxiety disorder, dyslipidemia, hypertension, CKD stage III and other medical problems who was recently hospitalized and was treated for new onset atrial flutter with RVR and hypokalemia presents with history of's significant dizziness which has been going on for the last 1 week. Patient states that during her prior hospitalization, her metoprolol dose is increased to 50 mg twice a day. She followed with her PCP and was noted to be tachycardic and her metoprolol dose was increased to 75 mg twice a day. She has been documenting her blood pressure and heart rate for the past week and she noted her heart rate persistently elevated in 130s. She had revisited her PCP today and was found to be tachycardic again and was sent to ED for further evaluation. Patient states having significant dizziness which she feels that she is going to pass out. She denies any chest pain, dyspnea, fever, chills, nausea, vomiting, palpitations, syncope. Patient reports having chronic diarrhea since many years which she states that she had extensive workup in the past. She denies any blood in the stool. Her last antibiotic use was in February for an E. coli infection. She has been taking her medications regularly. ED physician discussed with broadcast checker on-call who recommended cardioversion versus IV amiodarone. Patient opted for IV amiodarone and was started in ED. Admission Exam Per Admitting Provider General Appearance:Moderately built and nourished, no apparent distress, elderly Head: normocephalic, Atraumatic Eyes: normal inspection, EOMI Neck: supple, Trachea midline Respiratory/Chest: Normal breath sounds, CTA, No accessory muscle use Cardiovascular: Irregularly irregular, tachycardic, No murmur Abdomen/GI:Soft, Non tender, Bowel sounds present Extremities/Musculoskeletal:normal inspection, trace lower extremity edema Neurologic/Psych:AAOX3, grossly no focal neurological deficits Skin: normal color, warm Principal Diagnosis Atrial fibrillation with rapid ventricular rate Discharge Exam Constitutional + well hydrated; no acute distress Eyes PERRL, conjunctivae normal, anicteric sclerae ENMT external ear and nose normal, oropharynx normal Respiratory normal respiratory effort, lungs clear to auscultation Cardiovascular Rate/Rhythm: + tachycardic and + irregularly irregular Gastrointestinal (Abdomen) normal bowel sounds, soft, nontender, no hepatosplenomegaly Musculoskeletal No pedal edema Neurologic PERRL, EOMI, accommodation nl, no face palsy, no dysarthria Psychiatric A+Ox3, euthymic affect Discharge Data Allergies Allergy/AdvReac Type Severity Reaction Status Date / Time latex Allergy Unknown Unknown Verified 04/05/25 19:53 Sulfa (Sulfonamide Allergy Unknown Unknown Verified 04/05/25 19:53 Antibiotics) Consultations 04/18/25 19:24 ED Decision to Admit Stat 04/18/25 20:33 Consult Cardiology Routine 04/19/25 14:25 Consult Awning Installer Routine Hospital Course (1) Atrial fibrillation with rapid ventricular response: (2) Palpitations: (3) Dizziness: 89-year-old female with history of rheumatoid arthritis, atrial flutter, polymyalgia rheumatica, GERD, generalized anxiety disorder, dyslipidemia, hypertension, CKD stage III and other medical problems who was recently hospitalized and was treated for new onset atrial flutter with RVR and hypokalemia presents with history of's significant dizziness which has been going on for the last 1 week Atrial Fibrillation with RVR H/O atrial flutter with RVR s/p cardioversion on 04/08/25 CXR: No clear consolidation or pulmonary edema /pleural effusion TSH mildly elevated 4.94, normal free T4. PCP to repeat thyroid function test in 6 weeks ECHO on 04/04/25: EF 65 to 69%. Left ventricular wall motion normal. Left atrium is moderately enlarged. Mild aortic valve sclerosis is present. Moderate mitral regurgitation is present. Mild tricuspid regurgitation is present. No evidence of pulmonary hypertension. S/p Cardioversion on 04/19/25 which was successful However, flipped back to Afib on AM of 04/20/25 Initial amiodarone loading was discontinued Metoprolol succinate was increased dose of 100mg BID (was on 75mg BID at home) Cardizem ER 120mg BID was started Cardiology evaluated and recommended discharge on current meds. Patient will follow up with Cardiology and EP outpatient Reviewed med changes with patient. She reported she has enough of toprol 50mg and 25mg at home and will not need refill. Educated her on taking 100mg equivalents of those. Script sent for new Cardizem ER Patient required oxygen briefly. 2 step today does not show any oxygen needs at rest or with activity Acute kidney injury CKD 3 Cr baseline from [facility] is 1.1-1.2 Cr is 1.04 today Mild transaminitis H/O hepatitis (unknown type per patient) Denies any alcohol use LFT normalized Rheumatoid arthritis Follows with rheumatology as outpatient Continue home medications Hyperlipidemia Continue Lipitor Generalized anxiety disorder Continue Cymbalta Hydroxyzine as needed GERD Continue PPI, famotidine Total Time Total Time Spent Total Time Spent (In Minutes): 40 Total Time Includes: Examination of the Patient, Discharge Planning, Medication Reconciliation and Communication With Other Providers Discharge Plan Discharge Items Patient Disposition: Home - Self-Care Reason For Visit: AFIB RVR Discharge Diagnosis: Atrial fibrillation with rapid ventricular rate Condition on Discharge: Fair Activity: Resume your previous activity Non-emergency contact: Primary Care Provider and Envelope Adjuster Call non-emergency contact if: you have any medication questions and your symptoms worsen Follow-up/Referrals: Tila Burns MD [Primary Care Provider] - (Date & Time 04/29/2025 9:00 AM Provider: Rosie Lei MD Family Medicine [facility] ) Diet: Heart Healthy and Low Sodium (2gm) Addtl Attending Provider Instructions: Mrs King You were hospitalized and managed for Atrial fibrillation with rapid ventricular rate. Your metoprolol succinate was increased to 100mg twice a day You were also started on Cardizem 120mg twice a day It is very important that you follow up with Cardiology and your Primary Doctor. It was a pleasure taking care of you Pending Studies at Discharge: No Stand-Alone Forms: My [facility] Dailyevent, Smoking Cessation Medications and DC Order Prescriptions: New diltiazem HCl [Cardizem CD] 120 mg Capsule,Extended Release 24hr 120 mg PO BID 30 Days Qty: 60 0RF Continued losartan 50 mg tablet 50 mg PO DAILY atorvastatin 40 mg tablet 40 mg PO DAILY Patient Comments: original: 40mg po daily. per pt she doesnt take medication everyday famotidine 40 mg tablet 40 mg PO DAILY prednisone 5 mg tablet 5 mg PO DAILY PRN (Reason: Other) leflunomide [Arava] 20 mg tablet 20 mg PO DAILY hydroxyzine HCl 25 mg tablet 50 mg PO HS PRN (Reason: Hives) Patient Comments: per pt she takes 3 tabs (75mg) instead of 2 tabs (50mg) duloxetine 30 mg capsule,delayed release(DR/EC) 30 mg PO DAILY Humira(CF) Pen 40 mg/0.4 mL pen injector kit 40 mg subcut DIRECTED Rx Instructions: every other tuesday folic acid 1 mg tablet 1 mg PO DAILY cranberry 1 tab PO DAILY Qty: 0 Patient Comments: 04/18-otc unknown dose magnesium 400 tab PO DAILY Patient Comments: 04/18-otc unknown dose Eliquis 5 mg Tablet 5 mg PO BID 30 Days Qty: 60 0RF Changed metoprolol succinate 50 mg tablet extended release 24 hr 100 mg PO BID Qty: 120 0RF Discharge Orders: Discharge Order (Routine); Ordered 04/22/25 Ordered By: Rose Mary Sandoval Admission Data Admit Date/Time: 04/18/25 19:33 Attending Provider: Rose Mary Sandoval I. Admit Provider: Eleazar Sheikh Primary Care Provider: Tila Burns Other Providers: Eleazar Sheikh; Teresa Marie; Josue Montejo; Jos Freire; Fernando Monge; Enrico Cross; Golden Guallpa; Yasmine Cervantes; Claudia Valdez; Doretha Wyatt; Loretta Bella; Teresa Barrios; Dexter Nugent; Chris Ramírez; Lilian De Leon; Ruma Ram; Keiry Perkins; Stefano Manley; Vahid Rivera; Estrella Alicia; Hattie Maya; Bryan Mayers; Ambrocio Byrne
[2025-04-22 14:17] VITALS: BP 142/99
[2025-04-22 14:30] VITALS: PULSE 103
== END 2025-04-22 15:47 | disposition home or self-care (01) | DRG 309 ==
LOC: ED 14:04 → 4W 19:33 → SUATTDRO 19:33 → 4W 20:10 → 1E 04-19 14:37 → 2E 04-20 06:29

== ENCOUNTER 2025-06-01 17:44 | Inpatient (IN) ==
--- NOTE | 2025-06-01 17:56 | Emergency Department Note ---
Impression & Plan Atrial flutter with rapid ventricular response, Palpitations, Dizziness ED Provider Note NAME: TRUONG MONROY AGE: 84 SEX: F : 1940 ARRIVES VIA: Walk-In INFORMANT: Patient ED PROVIDER(S): Jorge Luis Roa DO CHIEF COMPLAINT: Elevated heart rate HPI: Patient is an 84-year-old female who presents to the ER for elevated heart rate. She notes it has been elevated for the past 48 hours. She denies any headache or change in vision. No chest pain or shortness of breath. She admits to chronic dizziness but notes this is unchanged. No belly pain. No nausea, vomiting or diarrhea. No dysuria, urgency or frequency. She notes that she does take a blood thinner Eliquis and has not missed any doses. She notes when this occurs she is generally asymptomatic with exception when she checks her heart rate it is elevated. ADDITIONAL HISTORY OBTAINED: Per HPI Chronic Medical/Social Conditions Affecting Care: Per HPI PAST MEDICAL HISTORY:See Below PAST SURGICAL HISTORY:See Below FAMILY HISTORY:See Below SOCIAL HISTORY:See Below HOME MEDICATIONS:See Below ALLERGIES:See Below VITALS:See Below PHYSICAL EXAMINATION: GENERAL: Sitting up in bed, alert, well appearing, well nourished, no distress, non-toxic EYE EXAM: normal conjunctiva. OROPHARYNX: no exudate, no erythema, lips, buccal mucosa, and tongue normal and mucous membranes are moist NECK: supple, no nuchal rigidity, no adenopathy, non-tender LUNGS: Clear to auscultation. Normal chest wall mechanics HEART: no murmurs, S1 normal and S2 normal ABDOMEN: abdomen soft, non-tender, normo-active bowel sounds, no masses, no rebound or guarding. BACK: Back is symmetrical on inspection and there is no deformity, no midline tenderness, no CVA tenderness. SKIN: no rashes and no bruising UPPER EXTREMITIES: upper extremities are grossly normal. LOWER EXTREMITIES: No pitting edema. NEURO EXAM: Normal sensorium, cranial nerves II-XII grossly intact, normal speech, no gross weakness of arms, no gross weakness of legs. MEDICAL DECISION MAKING: Patient is an 82-year-old female who presents ER for a past medical history of A-fib, hypertension and hyperlipidemia for noticing that her heart rate was elevated. IV was established and blood work was obtained. Labs showed no significant leukocytosis or anemia. BMP with a creatinine 1.4. LFTs bilirubin was unremarkable. Lipase was normal. Troponin was negative. Patient was given 3 dose of IV Lopressor. Heart rate trend down from 130s to 120. Did appear to be consistent with a flutter. Discussed case with the hospitalist for further evaluation management treatment. Consults/Care Managements Discussions: Per [facility] Triage Nursing notes reviewed. Limited review of prior medical records performed Vital Signs: reviewed and remarkable for tachy Differential diagnosis: Cardiac ischemia, aortic dissection, pulmonary embolism, pneumothorax, pneumonia, pericarditis, myocarditis, esophageal rupture, GERD, cholecystitis, pancreatitis, musculoskeletal, as well as other pathologies. ER treatment provided: See below Diagnostics interpreted by me include EKG and cardiac monitoring as listed below: -Cardiac Monitoring: An order was placed for continuous cardiac monitoring. The monitor shows a rate of 130 with Aflutter rhythm. -ECG: Atrial flutter rate of 130 Normal axis No PVCs QTc 473 -Laboratory studies:Interpreted by me as stated above in MDM and shown below. Imaging studies: Xrays: As interpreted by me: Portable AP upright 1 view of the chest shows no focal infiltrate CTs show: none Procedures:none Critical Care: I have personally spent 35 minutes of critical care time in the direct management of this patient. This includes bedside care, interpretation of diagnostic studies, and testing, discussion with consultants, patient, and family members, and other required patient management activities. This 35 minutes is in excess of all separately billable procedures. Past Med/Surg History Problem List (Updated 06/01/25 @ 23:46 by Jorge Luis Roa DO) Palpitations (Acute) Dizziness (Acute) Atrial fibrillation with rapid ventricular response (Acute) HLD (hyperlipidemia) HTN (hypertension) OA (osteoarthritis) of hip Atrial flutter with rapid ventricular response (Acute) Medical History Rheumatoid arthritis Surgical History No pertinent past surgical history Social History Smoking Status: Never smoker Second Hand Exposure: No; Do You Dip or Chew Tobacco: No; Hx Alcohol Use: No Hx Substance Use: No Preferred Language: Kyrgyz Communication Ability: Effective Workforce Management Coordinator Required: No Beliefs That Will Affect Care: None Current Living Situation: Spouse Feels Safe at Home: Yes Safety Concerns: Feels Safe At This Time Assistive Devices: Glasses Allergies Allergies Allergy/AdvReac Type Severity Reaction Status Date / Time latex Allergy Unknown Unknown Verified 04/05/25 19:53 Sulfa (Sulfonamide Allergy Unknown Unknown Verified 04/05/25 19:53 Antibiotics) Home Meds Home Medications Medication Instructions Recorded Confirmed adalimumab 40 mg/0.4 mL 40 mg subcut DIRECTED 04/05/25 06/01/25 subcutaneous pen kit (Humira(CF) Pen) atorvastatin 40 mg tablet 40 mg PO DAILY 04/05/25 06/01/25 cranberry 1 tab PO DAILY ##0 04/05/25 06/01/25 duloxetine 30 mg capsule,delayed 30 mg PO DAILY 04/05/25 06/01/25 release folic acid 1 mg tablet 1 mg PO DAILY 04/05/25 06/01/25 hydroxyzine HCl 25 mg tablet 50 mg PO HS PRN Hives 04/05/25 06/01/25 leflunomide 20 mg tablet (Arava) 20 mg PO DAILY 04/05/25 06/01/25 losartan 50 mg tablet 25 mg PO DAILY 04/05/25 06/01/25 magnesium 400 tab PO DAILY 04/05/25 06/01/25 prednisone 5 mg tablet 5 mg PO DAILY PRN Other 04/05/25 06/01/25 apixaban 5 mg tablet (Eliquis) 5 mg PO BID 06/01/25 06/01/25 diltiazem HCl 120 mg 120 mg PO BID 06/01/25 06/01/25 capsule,extended release 24 hr metoprolol succinate 50 mg 100 mg PO DAILY 06/01/25 06/01/25 tablet,extended release 24 hr Results & Data (ED) Vital Signs Vital Signs - 24 hr 06/01/25 17:46 06/01/25 17:56 06/01/25 17:56 Temperature 36.9 C Temperature Source Temporal Artery Scan Pulse Rate 131 H Pulse Rate [Right Finger] Pulse Rate from SpO2 Sensor Respiratory Rate 16 Respiratory Effort / Characteristics Non-Labored Spontaneous Respiratory Depth Normal Respiratory Pattern Regular Blood Pressure 137/96 145/100 H Blood Pressure [Right Arm] Blood Pressure Mean 109 125 Blood Pressure Mean [Right Arm] Pulse Oximetry 96 95 Oxygen Delivery Method Room Air Room Air Sepsis Recent Fever Within 48 Hours No Sepsis New/Unexplained Change in Mental Status No Sepsis Action Taken by Nursing No Action Required 06/01/25 17:56 06/01/25 17:57 06/01/25 18:06 Temperature Temperature Source Pulse Rate 128 H 126 H Pulse Rate [Right Finger] Pulse Rate from SpO2 Sensor Respiratory Rate Respiratory Effort / Characteristics Respiratory Depth Respiratory Pattern Blood Pressure 145/100 H 145/100 H 123/93 Blood Pressure [Right Arm] Blood Pressure Mean 125 Blood Pressure Mean [Right Arm] Pulse Oximetry Oxygen Delivery Method Sepsis Recent Fever Within 48 Hours Sepsis New/Unexplained Change in Mental Status Sepsis Action Taken by Nursing 06/01/25 18:06 06/01/25 18:08 06/01/25 18:10 Temperature Temperature Source Pulse Rate 125 H Pulse Rate [Right Finger] Pulse Rate from SpO2 Sensor Respiratory Rate Respiratory Effort / Characteristics Respiratory Depth Respiratory Pattern Blood Pressure 126/92 126/90 Blood Pressure [Right Arm] Blood Pressure Mean 108 106 Blood Pressure Mean [Right Arm] Pulse Oximetry Oxygen Delivery Method Sepsis Recent Fever Within 48 Hours Sepsis New/Unexplained Change in Mental Status Sepsis Action Taken by Nursing 06/01/25 18:10 06/01/25 18:11 06/01/25 18:16 Temperature Temperature Source Pulse Rate 129 H 125 H Pulse Rate [Right Finger] Pulse Rate from SpO2 Sensor Respiratory Rate Respiratory Effort / Characteristics Respiratory Depth Respiratory Pattern Blood Pressure 126/90 124/96 Blood Pressure [Right Arm] Blood Pressure Mean 106 Blood Pressure Mean [Right Arm] Pulse Oximetry Oxygen Delivery Method Sepsis Recent Fever Within 48 Hours Sepsis New/Unexplained Change in Mental Status Sepsis Action Taken by Nursing 06/01/25 18:17 06/01/25 18:25 06/01/25 18:25 Temperature Temperature Source Pulse Rate Pulse Rate [Right Finger] Pulse Rate from SpO2 Sensor Respiratory Rate Respiratory Effort / Characteristics Respiratory Depth Respiratory Pattern Blood Pressure 127/97 130/95 130/95 Blood Pressure [Right Arm] Blood Pressure Mean 107 104 104 Blood Pressure Mean [Right Arm] Pulse Oximetry Oxygen Delivery Method Sepsis Recent Fever Within 48 Hours Sepsis New/Unexplained Change in Mental Status Sepsis Action Taken by Nursing 06/01/25 18:25 06/01/25 18:25 06/01/25 18:27 Temperature Temperature Source Pulse Rate 124 H Pulse Rate [Right Finger] Pulse Rate from SpO2 Sensor 124 H Respiratory Rate 14 Respiratory Effort / Characteristics Respiratory Depth Respiratory Pattern Blood Pressure 130/95 130/95 Blood Pressure [Right Arm] Blood Pressure Mean 104 104 Blood Pressure Mean [Right Arm] Pulse Oximetry 94 Oxygen Delivery Method Sepsis Recent Fever Within 48 Hours Sepsis New/Unexplained Change in Mental Status Sepsis Action Taken by Nursing 06/01/25 18:30 06/01/25 18:30 06/01/25 18:30 Temperature Temperature Source Pulse Rate 124 H Pulse Rate [Right Finger] Pulse Rate from SpO2 Sensor 124 H Respiratory Rate 21 Respiratory Effort / Characteristics Respiratory Depth Respiratory Pattern Blood Pressure 123/95 123/95 Blood Pressure [Right Arm] Blood Pressure Mean 103 103 Blood Pressure Mean [Right Arm] Pulse Oximetry 95 Oxygen Delivery Method Sepsis Recent Fever Within 48 Hours Sepsis New/Unexplained Change in Mental Status Sepsis Action Taken by Nursing 06/01/25 18:31 06/01/25 18:32 06/01/25 18:32 Temperature Temperature Source Pulse Rate 124 H 124 H Pulse Rate [Right Finger] 124 H Pulse Rate from SpO2 Sensor Respiratory Rate 19 Respiratory Effort / Characteristics Respiratory Depth Respiratory Pattern Blood Pressure 130/100 123/95 Blood Pressure [Right Arm] 123/95 Blood Pressure Mean Blood Pressure Mean [Right Arm] 104 Pulse Oximetry 95 Oxygen Delivery Method Room Air Sepsis Recent Fever Within 48 Hours Sepsis New/Unexplained Change in Mental Status Sepsis Action Taken by Nursing 06/01/25 18:36 06/01/25 18:39 06/01/25 18:40 Temperature Temperature Source Pulse Rate 124 H Pulse Rate [Right Finger] Pulse Rate from SpO2 Sensor 124 H Respiratory Rate 17 Respiratory Effort / Characteristics Respiratory Depth Respiratory Pattern Blood Pressure 130/101 H 130/100 Blood Pressure [Right Arm] Blood Pressure Mean 105 106 Blood Pressure Mean [Right Arm] Pulse Oximetry 95 Oxygen Delivery Method Sepsis Recent Fever Within 48 Hours Sepsis New/Unexplained Change in Mental Status Sepsis Action Taken by Nursing 06/01/25 18:40 06/01/25 18:42 06/01/25 18:45 Temperature Temperature Source Pulse Rate 124 H 124 H Pulse Rate [Right Finger] Pulse Rate from SpO2 Sensor 124 H 124 H Respiratory Rate 16 18 Respiratory Effort / Characteristics Respiratory Depth Respiratory Pattern Blood Pressure 130/100 Blood Pressure [Right Arm] Blood Pressure Mean 106 Blood Pressure Mean [Right Arm] Pulse Oximetry 95 96 Oxygen Delivery Method Sepsis Recent Fever Within 48 Hours Sepsis New/Unexplained Change in Mental Status Sepsis Action Taken by Nursing 06/01/25 18:45 06/01/25 18:50 06/01/25 18:54 Temperature Temperature Source Pulse Rate 123 H Pulse Rate [Right Finger] Pulse Rate from SpO2 Sensor Respiratory Rate 14 Respiratory Effort / Characteristics Respiratory Depth Respiratory Pattern Blood Pressure 134/109 H 132/106 H Blood Pressure [Right Arm] Blood Pressure Mean 120 114 Blood Pressure Mean [Right Arm] Pulse Oximetry Oxygen Delivery Method Sepsis Recent Fever Within 48 Hours Sepsis New/Unexplained Change in Mental Status Sepsis Action Taken by Nursing 06/01/25 18:55 06/01/25 18:55 06/01/25 19:00 Temperature Temperature Source Pulse Rate 123 H Pulse Rate [Right Finger] Pulse Rate from SpO2 Sensor Respiratory Rate 16 Respiratory Effort / Characteristics Respiratory Depth Respiratory Pattern Blood Pressure 131/102 H 131/102 H Blood Pressure [Right Arm] Blood Pressure Mean 115 115 Blood Pressure Mean [Right Arm] Pulse Oximetry Oxygen Delivery Method Sepsis Recent Fever Within 48 Hours Sepsis New/Unexplained Change in Mental Status Sepsis Action Taken by Nursing 06/01/25 19:00 06/01/25 19:00 06/01/25 19:00 Temperature Temperature Source Pulse Rate Pulse Rate [Right Finger] Pulse Rate from SpO2 Sensor Respiratory Rate Respiratory Effort / Characteristics Respiratory Depth Respiratory Pattern Blood Pressure 133/106 H 133/106 H 133/106 H Blood Pressure [Right Arm] Blood Pressure Mean 113 113 113 Blood Pressure Mean [Right Arm] Pulse Oximetry Oxygen Delivery Method Sepsis Recent Fever Within 48 Hours Sepsis New/Unexplained Change in Mental Status Sepsis Action Taken by Nursing 06/01/25 19:03 06/01/25 19:05 06/01/25 19:05 Temperature Temperature Source Pulse Rate 123 H Pulse Rate [Right Finger] Pulse Rate from SpO2 Sensor Respiratory Rate 15 Respiratory Effort / Characteristics Respiratory Depth Respiratory Pattern Blood Pressure 146/110 H 146/110 H Blood Pressure [Right Arm] Blood Pressure Mean 126 126 Blood Pressure Mean [Right Arm] Pulse Oximetry Oxygen Delivery Method Sepsis Recent Fever Within 48 Hours Sepsis New/Unexplained Change in Mental Status Sepsis Action Taken by Nursing 06/01/25 19:05 06/01/25 19:05 06/01/25 19:06 Temperature Temperature Source Pulse Rate 123 H Pulse Rate [Right Finger] Pulse Rate from SpO2 Sensor Respiratory Rate 16 Respiratory Effort / Characteristics Respiratory Depth Respiratory Pattern Blood Pressure 146/110 H 146/110 H Blood Pressure [Right Arm] Blood Pressure Mean 126 126 Blood Pressure Mean [Right Arm] Pulse Oximetry Oxygen Delivery Method Sepsis Recent Fever Within 48 Hours Sepsis New/Unexplained Change in Mental Status Sepsis Action Taken by Nursing 06/01/25 19:17 Temperature Temperature Source Pulse Rate Pulse Rate [Right Finger] Pulse Rate from SpO2 Sensor Respiratory Rate Respiratory Effort / Characteristics Respiratory Depth Respiratory Pattern Blood Pressure 177/117 H Blood Pressure [Right Arm] Blood Pressure Mean 128 Blood Pressure Mean [Right Arm] Pulse Oximetry Oxygen Delivery Method Sepsis Recent Fever Within 48 Hours Sepsis New/Unexplained Change in Mental Status Sepsis Action Taken by Nursing Laboratory Data 06/01/25 18:00 06/01/25 18:00 Lab Results 06/01/25 Range/Units 18:00 WBC 5.47 (4.8-10.8) K/ul RBC 4.28 (4.20-5.40) M/uL Hgb 13.0 (12.0-16.0) g/dl Hct 39.7 (37.0-47.0) % MCV 92.8 (80.0-100.0) fL MCH 30.4 (25.0-34.0) pg MCHC 32.7 (32.0-36.0) g/dL RDW Std Deviation 48.8 H (36.4-46.3) fL RDW Coeff of Titi 14.5 (11.5-14.5) % Plt Count 198 (130-400) K/uL MPV 9.9 (9.4-12.4) fL Immature Gran % (Auto) 0.4 % Neut % (Auto) 43.7 % Lymph % (Auto) 37.3 % Lamar % (Auto) 13.3 % Eos % (Auto) 4.4 % Baso % (Auto) 0.9 % Neut # (Auto) 2.39 (1.40-6.50) K/uL Lymph # (Auto) 2.04 (1.20-3.40) K/uL Lamar # (Auto) 0.73 H (0.11-0.59) K/uL Eos # (Auto) 0.24 (0.00-0.50) K/uL Baso # (Auto) 0.05 (0.00-0.20) K/uL Immature Gran # (Auto) 0.02 (0.01-0.20) K/uL Sodium 140 (136-145) mmol/L Potassium 3.6 (3.5-5.1) mmol/L Chloride 103 (98-107) mmol/L Carbon Dioxide 31 (21-32) mmol/L Anion Gap 6 (3-11) BUN 19 (6-23) mg/dl Creatinine 1.46 H (0.6-1.2) mg/dl Est Cr Clr Drug Dosing 25.6 ml/min eGFR 35.72 BUN/Creatinine Ratio 13.0 (10-20) Glucose 122 H (70-99(Fasting)) mg/dl Calcium 10.3 (8.6-10.3) mg/dl Magnesium 1.9 (1.7-2.4) mg/dl Total Bilirubin 0.7 (0.2-1.0) mg/dl AST 17 (13-39) U/L ALT 11 (7-52) U/L Alkaline Phosphatase 60 (34-104) U/L Troponin I High Sens 8.2 (0-14) pg/ml Total Protein 7.2 (6.0-8.3) gm/dl Albumin 4.3 (3.4-5.0) gm/dl Globulin 2.9 (2.5-4.0) gm/dl Albumin/Globulin Ratio 1.5 (0.9-2) Lipase 52 (11-82) U/L Administered Medications Apixaban (Apixaban 5 Mg Tablet) 5 mg PO BID MITESH Stop: 07/01/25 21:23 Last Admin: 06/01/25 21:52 Dose: 5 mg Documented By: VELVET Diltiazem HCl (Diltiazem Hcl 120 Mg Capcr) 120 mg PO BID MITESH Stop: 07/01/25 21:23 Last Admin: 06/01/25 21:52 Dose: 120 mg Documented By: VELVET Lactated Ringer's (Lr) 1,000 mls @ 50 mls/hr IV .Q20H ONE Stop: 06/02/25 15:19 Last Infusion: 06/01/25 20:19 Dose: 50 mls/hr Documented By: Admin: 06/01/25 19:49 Dose: 80 mls/hr Documented By: LAZARUS Metoprolol Succinate (Metoprolol Succ 50mg Ext Rel Tab) 100 mg PO BID MITESH Stop: 07/01/25 21:23 Last Admin: 06/01/25 21:52 Dose: 100 mg Documented By: VELVET Discontinued Medications Magnesium Sulfate/Dextrose (Magnesium Sulfate / D5w) 1 gm in 100 mls @ 50 mls/hr IV ONE ONE Stop: 06/01/25 21:17 Last Admin: 06/01/25 19:42 Dose: 50 mls/hr Documented By: LAZARUS Metoprolol Tartrate (Metoprolol Tartrate 1 Mg/Ml Vial) Confirm Administered Dose 5 mg IV .STK-MED ONE Stop: 06/01/25 17:57 Last Admin: 06/01/25 17:57 Dose: 5 mg Documented By: ASW Metoprolol Tartrate (Metoprolol Tartrate 1 Mg/Ml Vial) 5 mg IV Q5M PRN PRN Reason: Tachycardia Stop: 07/01/25 17:55 Last Admin: 06/01/25 20:47 Dose: 5 mg Documented By: Admin: 06/01/25 18:16 Dose: 5 mg Documented By: Admin: 06/01/25 18:06 Dose: 5 mg Documented By: AGUS Potassium Chloride (Potassium Chloride 10 Meq Tabcr) 40 meq PO ONE ONE Stop: 06/01/25 19:19 Last Admin: 06/01/25 19:42 Dose: 40 meq Documented By: LAZARUS Imaging Data Radiologist's Impression: Chest X-Ray 06/01/25 17:50 HISTORY: Atrial fibrillation. TECHNIQUE: Portable AP radiograph of the chest. COMPARISON: Chest radiograph dated 04/20/2025. FINDINGS: No focal lung consolidation. No pneumothorax or pleural effusion. Normal heart size. Left-sided aortic arch contains atherosclerotic calcification. Midline trachea. Degenerative changes of the spine and shoulders. The included upper abdomen is unremarkable. IMPRESSION: No acute cardiopulmonary findings. Electronically signed by William Zee 06-01-2025 8:07 PM Discharge Plan Visit Data Chief Complaint: Tachycardia Stated Complaint: AFIB ED Provider: Jorge Luis Roa Discharge Problem: Atrial flutter with rapid ventricular response, Palpitations, Dizziness Patient Disposition: Admitted As Inpatient Condition: Fair Discharge Instructions Interventions: ED Discharge Assessment Last Done: 06/01/25 20:58
[2025-06-01] MEDS: METOPROLOL TARTRATE 1 MG/ML VIAL IV ONE (17:57)
[2025-06-01] MEDS: METOPROLOL TARTRATE 1 MG/ML VIAL IV PRN (18:06)
[2025-06-01 18:09] LABS: Hematocrit (blood only) 39.7 % (37.0-47.0); Hemoglobin 13.0 g/dl (12.0-16.0); Immature Granulocytes # (auto) 0.02 K/uL (0.01-0.20); Immature Granulocytes % (auto) 0.4 %; Mean Corpuscular Hemoglobin 30.4 pg (25.0-34.0); Mean Corpuscular Volume 92.8 fL (80.0-100.0); Platelet Count 198 K/uL (130-400); RDW Standard Deviation 48.8 fL (36.4-46.3); Red Blood Count 4.28 M/uL (4.20-5.40); White Blood Count 5.47 K/ul (4.8-10.8)
[2025-06-01 18:26] LABS: Alanine Aminotransferase 11.0 U/L (7-52); Albumin Globulin Ratio 1.5 (0.9-2); Alkaline Phosphatase 60.0 U/L (34-104); Anion Gap 6.0 (3-11); Bilirubin,Total 0.7 mg/dl (0.2-1.0); Blood Urea Nitrogen 19.0 mg/dl (6-23); Calcium 10.3 mg/dl (8.6-10.3); Carbon Dioxide 31.0 mmol/L (21-32); Chloride 103.0 mmol/L (98-107); Creatinine Clr Calc Pharmacy 25.6 ml/min; Globulin 2.9 gm/dl (2.5-4.0); Glucose 122.0 mg/dl (70-99(Fasting)); Lipase 52.0 U/L (11-82); Potassium 3.6 mmol/L (3.5-5.1); Sodium 140.0 mmol/L (136-145); Total Protein 7.2 gm/dl (6.0-8.3)
--- NOTE | 2025-06-01 19:14 | History & Physical Report ---
Date of Service June 01, 2025 Assessment & Plan (1) Atrial flutter with rapid ventricular response: Plan: Atrial Flutter RVR Valvular heart disease H/O moderate mitral regurgitation, mild tricuspid regurgitation Was recommended to get ablation in the past --CXR:No acute cardiopulmonary findings. Check TSH Continue diltiazem 120 mg twice daily Increase metoprolol succinate to 100 mg twice a day Continue Eliquis 5 mg twice daily for anticoagulation Cardiology consulted N.p.o. after midnight for possible cardioversion Monitor and replete electrolytes as needed to keep potassium greater than 4, magnesium greater than 2 Hypertensive urgency H/O Hypertension Hold losartan due to JH IV labetalol as needed Monitor blood pressure Acute kidney injury Avoid nephrotoxic agents as able Hold losartan for now Creatinine 1.46 today Gentle IV fluids Monitor renal function Chronic dizziness Check orthostatics Chronic diarrhea H/O intussusception as a child Hold magnesium oxide Check stool studies Rheumatoid arthritis Follows with rheumatology as outpatient Continue home medications Hyperlipidemia Continue Lipitor Generalized anxiety disorder Continue duloxetine DVT Px: Eliquis CODE STATUS Full code History of Present Illness Chief Complaint: Elevated Heart Rate Primary Care Provider: Tila Burns MD Patient is a 84-year-old female with history of rheumatoid arthritis, atrial flutter, polymyalgia rheumatica, GERD, generalized anxiety disorder, dyslipidemia, hypertension, CKD stage III and other medical problems presents with history of elevated heart rate. Patient states that she has been monitoring her heart rate since hospitalization. She was concerned that her heart rate has been persistently elevated for the last 2 days and so came to ED for further evaluation. She states that she has been taking her medications regularly. Her medications were adjusted on follow-up visit with her laser engineer. Reports chronic dizziness predominantly with positional change which is unchanged. She also states having excess sweating over the past 2 days. Reports chronic diarrhea which is unchanged. Denies any history of chest pain, palpitations, shortness of breath, syncopal episode, cough, wheezing, hemoptysis, fever, chills, fall, headache, weakness, nausea, vomiting, abdominal pain, diarrhea, dysuria, hematuria. Allergies Allergy/AdvReac Type Severity Reaction Status Date / Time latex Allergy Unknown Unknown Verified 04/05/25 19:53 Sulfa (Sulfonamide Allergy Unknown Unknown Verified 04/05/25 19:53 Antibiotics) Home Medications Medication Instructions Recorded Confirmed Type adalimumab 40 mg/0.4 mL 40 mg subcut DIRECTED 04/05/25 06/01/25 History subcutaneous pen kit (Humira(CF) Pen) atorvastatin 40 mg tablet 40 mg PO DAILY 04/05/25 06/01/25 History cranberry 1 tab PO DAILY ##0 04/05/25 06/01/25 History duloxetine 30 mg capsule,delayed 30 mg PO DAILY 04/05/25 06/01/25 History release folic acid 1 mg tablet 1 mg PO DAILY 04/05/25 06/01/25 History hydroxyzine HCl 25 mg tablet 50 mg PO HS PRN Hives 04/05/25 06/01/25 History leflunomide 20 mg tablet (Arava) 20 mg PO DAILY 04/05/25 06/01/25 History losartan 50 mg tablet 25 mg PO DAILY 04/05/25 06/01/25 History magnesium 400 tab PO DAILY 04/05/25 06/01/25 History prednisone 5 mg tablet 5 mg PO DAILY PRN Other 04/05/25 06/01/25 History apixaban 5 mg tablet (Eliquis) 5 mg PO BID 06/01/25 06/01/25 History diltiazem HCl 120 mg 120 mg PO BID 06/01/25 06/01/25 History capsule,extended release 24 hr metoprolol succinate 50 mg 100 mg PO DAILY 06/01/25 06/01/25 History tablet,extended release 24 hr Past Med/Surg History Problem List Palpitations (Acute) Dizziness (Acute) Atrial fibrillation with rapid ventricular response (Acute) HLD (hyperlipidemia) HTN (hypertension) OA (osteoarthritis) of hip Atrial flutter with rapid ventricular response (Acute) Medical History Rheumatoid arthritis Surgical History No pertinent past surgical history Social History Smoking Status: Never smoker Second Hand Exposure: No; Do You Dip or Chew Tobacco: No; Hx Alcohol Use: No Hx Substance Use: No Preferred Language: German Communication Ability: Effective Glass Bulb Machine Adjuster Required: No Beliefs That Will Affect Care: None Current Living Situation: Spouse Feels Safe at Home: Yes Assistive Devices: None Review of Systems Review of Systems: All systems reviewed & are unremarkable except as noted in Subjective Physical Exam Physical Exam: Physical Exam: Vitals signs as noted above General Appearance:Moderately built and nourished, no apparent distress, elderly Head: normocephalic, Atraumatic Eyes: normal inspection, EOMI Neck: supple, Trachea midline Respiratory/Chest: Normal breath sounds, CTA, No accessory muscle use Cardiovascular: Irregularly irregular, tachycardic, No murmur Abdomen/GI:Soft, Non tender, Bowel sounds present Extremities/Musculoskeletal:normal inspection, trace lower extremity edema Neurologic/Psych:AAOX3, grossly no focal neurological deficits Skin: normal color, warm Results & Data Results & Data Vital Signs (Past 12 Hours) Vital Signs Temp Pulse Pulse Resp BP BP Pulse Ox 06/01/25 18:32 124 H 19 123/95 95 06/01/25 18:32 124 H 123/95 06/01/25 18:31 124 H 130/100 06/01/25 18:16 125 H 124/96 06/01/25 18:11 129 H 06/01/25 18:06 125 H 06/01/25 18:06 126 H 123/93 06/01/25 17:57 128 H 145/100 H 06/01/25 17:56 95 06/01/25 17:46 36.9 C 131 H 16 137/96 96 O2 Del Method 06/01/25 18:32 Room Air 06/01/25 18:32 06/01/25 18:31 06/01/25 18:16 06/01/25 18:11 06/01/25 18:06 06/01/25 18:06 06/01/25 17:57 06/01/25 17:56 Room Air 06/01/25 17:46 Room Air Laboratory Results Short CBC 06/01/25 Range/Units 18:00 WBC 5.47 (4.8-10.8) K/ul Hgb 13.0 (12.0-16.0) g/dl Hct 39.7 (37.0-47.0) % Plt Count 198 (130-400) K/uL BMP 06/01/25 18:00 Sodium 140 Potassium 3.6 Chloride 103 Carbon Dioxide 31 BUN 19 Creatinine 1.46 H Glucose 122 H Calcium 10.3 Liver Function 06/01/25 Range/Units 18:00 Total Bilirubin 0.7 (0.2-1.0) mg/dl AST 17 (13-39) U/L ALT 11 (7-52) U/L Alkaline Phosphatase 60 (34-104) U/L Albumin 4.3 (3.4-5.0) gm/dl Diagnostic Findings No acute cardiopulmonary findings. Medications Administered Home meds Reviewed ECG Additional Comments: --EKG:Atrial flutter RVR on my interpretation
[2025-06-01] MEDS: POTASSIUM CHLORIDE 10 MEQ TABCR PO ONE (19:42)
[2025-06-01] MEDS: MAGNESIUM SULFATE / D5W 1 GM/100 ML BAG IV ONE (19:42)
[2025-06-01] MEDS: LACTATED RINGER'S 1,000 ML IV ONE (19:49)
[2025-06-01 19:50] LABS: Magnesium 1.9 mg/dl (1.7-2.4)
--- NOTE | 2025-06-01 20:09 | XRay Report ---
HISTORY: Atrial fibrillation. TECHNIQUE: Portable AP radiograph of the chest. COMPARISON: Chest radiograph dated 04/20/2025. FINDINGS: No focal lung consolidation. No pneumothorax or pleural effusion. Normal heart size. Left-sided aortic arch contains atherosclerotic calcification. Midline trachea. Degenerative changes of the spine and shoulders. The included upper abdomen is unremarkable. IMPRESSION: No acute cardiopulmonary findings. Electronically signed by William Zee 06-01-2025 8:07 PM
[2025-06-01] MEDS ORDERED: NITROGLYCERIN SL 0.4 MG/TAB TAB SL PRN (21:24)
[2025-06-01] MEDS ORDERED: LABETALOL HCL IV 5 MG/ML 20ML IV PRN (21:24)
[2025-06-01] MEDS ORDERED: ACETAMINOPHEN 325 MG TAB PO PRN (21:24)
[2025-06-01] MEDS ORDERED: POLYETHYLENE (MIRALAX) 17 GM PACK PO PRN (21:24)
[2025-06-01] MEDS: APIXABAN 5 MG TABLET PO SCH (21:52)
[2025-06-01] MEDS: METOPROLOL SUCC 50MG EXT REL TAB PO SCH (21:52)
[2025-06-02] MEDS: ALUMINUM/MAGNESIUM/SIMETH (MAALOX MAX) 30 ML UDC PO STA (04:18)
[2025-06-02 04:36] LABS: Hematocrit (blood only) 34.0 % (37.0-47.0); Hemoglobin 11.5 g/dl (12.0-16.0); Mean Corpuscular Hemoglobin 31.1 pg (25.0-34.0); Mean Corpuscular Volume 91.9 fL (80.0-100.0); Platelet Count 162 K/uL (130-400); RDW Standard Deviation 48.2 fL (36.4-46.3); Red Blood Count 3.70 M/uL (4.20-5.40); White Blood Count 3.78 K/ul (4.8-10.8)
[2025-06-02 04:53] LABS: Anion Gap 5.0 (3-11); Blood Urea Nitrogen 16.0 mg/dl (6-23); Calcium 9.3 mg/dl (8.6-10.3); Carbon Dioxide 25.0 mmol/L (21-32); Chloride 110.0 mmol/L (98-107); Creatinine Clr Calc Pharmacy 32.1 ml/min; Glucose 99.0 mg/dl (70-99(Fasting)); Magnesium 2.1 mg/dl (1.7-2.4); Potassium 4.2 mmol/L (3.5-5.1); Sodium 140.0 mmol/L (136-145)
[2025-06-02 05:08] LABS: Thyroid Stimulating Hormone 10.686 uIu/ml (0.300-4.500)
--- NOTE | 2025-06-02 08:27 | Hospitalist Progress Note ---
Date of Service June 02, 2025 Assessment & Plan (1) Atrial flutter with rapid ventricular response: Plan: Atrial Flutter RVR Valvular heart disease H/O moderate mitral regurgitation, mild tricuspid regurgitation Patient presented with elevated heart rate and palpitation for last 48 hours EKG on admission showed atrial fibrillation with ventricular rate of 130 bpm. Known history of A-fib with cardioversion in the past Evaluated by cardiology; discontinued metoprolol. Patient is started on sotalol. Plan to repeat EKG to check for QTc. Continue on Cardizem. Losartan restarted for high blood pressure. N.p.o. from midnight for possible cardioversion continue on Eliquis continue telemetry monitoring Subclinical hypothyroidism TSH elevated to 10 with normal free T4 Will hold off on starting levothyroxine at this time given A-fib episode; will need follow-up with PCP and repeat TSH and T4 with consideration of starting low-dose levothyroxine Hypertensive urgency H/O Hypertension Hold losartan due to JH continue on cardizem and metoprolol Monitor blood pressure Acute kidney injury-resolved Avoid nephrotoxic agents as able Hold losartan for now Creatinine 1.46 on admission- downtrended Chronic diarrhea H/O intussusception as a child Hold magnesium oxide Check stool studies Rheumatoid arthritis Follows with rheumatology as outpatient Continue home medications Hyperlipidemia Continue Lipitor Generalized anxiety disorder Continue duloxetine DVT Px: Eliquis CODE STATUS Full code Time spent evaluating patient, direct bedside care, chart review, placing orders, interpretation of diagnostic studies, discussion with consultants, patient, and family members, as well as other required patient management activities is 50 minutes Please note the above document was generated using voice recognition software. It may contain grammatical, syntax or spelling errors. Any formal questions or concerns about the content, text or information contained within the body of this dictation should be directly addressed to the provider for clarification Admission and Anticipated Discharge Date Admission Date: June 01, 2025 Subjective Patient seen and examined at bedside. She reports that she does not have palpitation, chest pain or dizziness. Reports that she has not been symptomatic with A-fib. Review of Systems Review of Systems: All systems reviewed & are unremarkable except as noted in Subjective Physical Exam Physical Exam: Physical Exam: Vitals signs as noted above General Appearance:Moderately built and nourished, no apparent distress, elderly Respiratory/Chest: Normal breath sounds, CTA, No accessory muscle use Cardiovascular: Irregularly irregular, tachycardic, No murmur Abdomen/GI:Soft, Non tender, Bowel sounds present Extremities/Musculoskeletal:normal inspection, trace lower extremity edema Neurologic/Psych:AAOX3, grossly no focal neurological deficits Skin: normal color, warm Results & Data Results & Data Vital Signs (Past 12 Hours) Vital Signs Temp Pulse Pulse Resp BP BP Pulse Ox 06/02/25 02:54 36.3 C L 115 H 18 120/90 96 06/01/25 23:10 36.5 C 122 H 18 124/90 96 06/01/25 21:27 124 H 154/117 H 06/01/25 21:24 36.5 C 124 H 18 154/117 H 94 06/01/25 20:47 124 H 169/121 H 06/01/25 20:30 122 H 14 95 06/01/25 20:30 161/121 H 06/01/25 20:27 122 H 17 96 O2 Del Method 06/02/25 02:54 Room Air 06/01/25 23:10 Room Air 06/01/25 21:27 06/01/25 21:24 Room Air 06/01/25 20:47 06/01/25 20:30 06/01/25 20:30 06/01/25 20:27
--- NOTE | 2025-06-02 09:26 | Cardiology Consultation ---
Date of Consultation June 02, 2025 Assessment & Plan (1) Atypical atrial flutter: (2) Dizziness: (3) Palpitations: Plan Patient with symptomatic atrial flutter with difficult to control ventricular response rates. Blood pressure labile. Patient is hyperaware a bit concerned regarding symptoms of dizziness and fatigue, elevated heart rates. Sought ER evaluation for assessment 1. Atypical atrial flutter with rapid ventricular response despite significant dosing of metoprolol and diltiazem. Past synchronized cardioversion resulted in transient return to sinus rhythm with relapse into atrial flutter promptly. 2. Dizziness, labile hypertension 3. Borderline hypothyroidism Recommendations: Initiate antiarrhythmic therapy with sotalol 80 mg twice per day. Discontinue IV and oral beta-abhinav Continue apixaban Reduce diltiazem CD 120 mg once daily Add losartan 25 mg p.o. daily for additional blood pressure control EKG after first dose of sotalol and in a.m. Keep n.p.o. after midnight tonight however likely will require 2-day load with sotalol before considering repeat cardioversion. Discussed in detail with patient History of Present Illness Reason for Consultation: Atrial flutter with difficult rate control Requesting Physician: Sarwat hospitalist Attending Physician: Percy Thapa MD History of Present Illness Patient is an 84-year-old female with ongoing issues which include 1. Atypical atrial flutter with difficult to control ventricular response rates 2. Past synchronized electrical cardioversion without persistent conversion to sinus 3. Labile hypertension Patient presents this admission noting having followed heart rates at home with heart rates trending higher over the past several days. Patient markedly concerned and attempts to contact providers difficult. Ultimately sought ER evaluation with patient tachycardic and hypertensive on presentation. Compliant with medications but does admit to symptoms of lightheadedness and dizziness and heart pounding with activity. No syncope or near syncope. No bleeding issues. Compliant with medications including apixaban. No fevers chills or unexplained infections. Allergies Allergy/AdvReac Type Severity Reaction Status Date / Time latex Allergy Unknown Unknown Verified 04/05/25 19:53 Sulfa (Sulfonamide Allergy Unknown Unknown Verified 04/05/25 19:53 Antibiotics) Home Medications Medication Instructions Recorded Confirmed Type adalimumab 40 mg/0.4 mL 40 mg subcut DIRECTED 04/05/25 06/01/25 History subcutaneous pen kit (Humira(CF) Pen) atorvastatin 40 mg tablet 40 mg PO DAILY 04/05/25 06/01/25 History cranberry 1 tab PO DAILY ##0 04/05/25 06/01/25 History duloxetine 30 mg capsule,delayed 30 mg PO DAILY 04/05/25 06/01/25 History release folic acid 1 mg tablet 1 mg PO DAILY 04/05/25 06/01/25 History hydroxyzine HCl 25 mg tablet 50 mg PO HS PRN Hives 04/05/25 06/01/25 History leflunomide 20 mg tablet (Arava) 20 mg PO DAILY 04/05/25 06/01/25 History losartan 50 mg tablet 25 mg PO DAILY 04/05/25 06/01/25 History magnesium 400 tab PO DAILY 04/05/25 06/01/25 History prednisone 5 mg tablet 5 mg PO DAILY PRN Other 04/05/25 06/01/25 History apixaban 5 mg tablet (Eliquis) 5 mg PO BID 06/01/25 06/01/25 History diltiazem HCl 120 mg 120 mg PO BID 06/01/25 06/01/25 History capsule,extended release 24 hr metoprolol succinate 50 mg 100 mg PO DAILY 06/01/25 06/01/25 History tablet,extended release 24 hr Patient History Medical History Rheumatoid arthritis Surgical History No pertinent past surgical history Social History Smoking Status: Never smoker Second Hand Exposure: No; Do You Dip or Chew Tobacco: No; Hx Alcohol Use: No Hx Substance Use: No Preferred Language: Chadian Communication Ability: Effective Pet Groomer Required: No Beliefs That Will Affect Care: None Current Living Situation: Spouse Feels Safe at Home: Yes Safety Concerns: Feels Safe At This Time Assistive Devices: Glasses Review of Systems Review of Systems: All systems reviewed & are unremarkable except as noted in HPI & below Physical Exam Constitutional: WD/WN, vitals as above no acute distress Eyes: PERRL, conjunctivae normal, anicteric sclerae Neck: trachea midline, no thyromegaly Respiratory: normal respiratory effort, lungs clear to auscultation Cardiovascular: Rate/Rhythm: + tachycardic and + irregularly irregular Heart Sounds: normal S1 and normal S2 Vessels: no JVD Extremities: no edema Gastrointestinal (Abdomen): normal bowel sounds, soft, nontender, no hepatosplenomegaly Musculoskeletal: no cyanosis or clubbing, extremities motor strength 5/5 Results & Data Vital Signs (Past 12 Hours) Vital Signs Temp Pulse Pulse Resp BP BP Pulse Ox 06/02/25 08:49 36.6 C 124 H 20 139/99 95 06/02/25 02:54 36.3 C L 115 H 18 120/90 96 06/01/25 23:10 36.5 C 122 H 18 124/90 96 06/01/25 21:27 124 H 154/117 H O2 Del Method 06/02/25 08:49 Room Air 06/02/25 02:54 Room Air 06/01/25 23:10 Room Air 06/01/25 21:27 Laboratory Results Laboratory Results - last 24 hr 06/01/25 06/02/25 18:00 03:57 WBC 5.47 3.78 L RBC 4.28 3.70 L Hgb 13.0 11.5 L Hct 39.7 34.0 L MCV 92.8 91.9 MCH 30.4 31.1 MCHC 32.7 33.8 RDW Std Deviation 48.8 H 48.2 H RDW Coeff of Titi 14.5 14.3 Plt Count 198 162 MPV 9.9 10.8 Immature Gran % (Auto) 0.4 Neut % (Auto) 43.7 Lymph % (Auto) 37.3 Lyon % (Auto) 13.3 Eos % (Auto) 4.4 Baso % (Auto) 0.9 Neut # (Auto) 2.39 Lymph # (Auto) 2.04 Lyon # (Auto) 0.73 H Eos # (Auto) 0.24 Baso # (Auto) 0.05 Immature Gran # (Auto) 0.02 Sodium 140 140 Potassium 3.6 4.2 Chloride 103 110 H Carbon Dioxide 31 25 Anion Gap 6 5 BUN 19 16 Creatinine 1.46 H 1.14 D Est Cr Clr Drug Dosing 25.6 32.1 eGFR 35.72 48.06 BUN/Creatinine Ratio 13.0 14.0 Glucose 122 H 99 Calcium 10.3 9.3 Magnesium 1.9 2.1 Total Bilirubin 0.7 AST 17 ALT 11 Alkaline Phosphatase 60 Troponin I High Sens 8.2 7.6 Total Protein 7.2 Albumin 4.3 Globulin 2.9 Albumin/Globulin Ratio 1.5 Lipase 52 TSH 10.686 H Free T4 0.65 Diagnostic Findings EKG 06/02/2025 Atypical atrial flutter, rate 91 bpm PG Care Time/CCT Total # of Minutes Spent Total Time Spent with Patient: Total time spent is greater than 50% in coordination of care (as documented) at patient's floor/unit and/or counseling patient: Coding Level of Care Code 71974 IN/OBS CONSULT LVL 4,60M Diagnoses Atypical atrial flutter I48.4 Dizziness R42 Palpitations R00.2
[2025-06-02] MEDS: FOLIC ACID 1 MG TAB PO SCH (10:45)
[2025-06-02] MEDS: SOTALOL HCL 80 MG TAB PO SCH (10:45)
[2025-06-02] MEDS: LOSARTAN POTASSIUM 25 MG TAB PO SCH (10:45)
[2025-06-02] MEDS: LEFLUNOMIDE 10 MG TAB PO SCH (10:46)
[2025-06-02] MEDS: ATORVASTATIN 40 MG TAB PO SCH (10:46)
[2025-06-03 06:22] LABS: Hematocrit (blood only) 36.0 % (37.0-47.0); Hemoglobin 12.1 g/dl (12.0-16.0); Immature Granulocytes # (auto) 0.01 K/uL (0.01-0.20); Immature Granulocytes % (auto) 0.3 %; Mean Corpuscular Hemoglobin 31.0 pg (25.0-34.0); Mean Corpuscular Volume 92.3 fL (80.0-100.0); Platelet Count 173 K/uL (130-400); RDW Standard Deviation 48.6 fL (36.4-46.3); Red Blood Count 3.90 M/uL (4.20-5.40); White Blood Count 3.98 K/ul (4.8-10.8)
[2025-06-03 06:39] LABS: Anion Gap 4.0 (3-11); Blood Urea Nitrogen 17.0 mg/dl (6-23); Calcium 9.3 mg/dl (8.6-10.3); Carbon Dioxide 28.0 mmol/L (21-32); Chloride 107.0 mmol/L (98-107); Creatinine Clr Calc Pharmacy 28.3 ml/min; Glucose 103.0 mg/dl (70-99(Fasting)); Potassium 4.0 mmol/L (3.5-5.1); Sodium 139.0 mmol/L (136-145)
--- NOTE | 2025-06-03 10:49 | Cardiology Progress Note ---
Date of Service June 03, 2025 Assessment & Plan (1) Atypical atrial flutter: (2) Dizziness: (3) Palpitations: Plan Patient with symptomatic atrial flutter with difficult to control ventricular response rates. Blood pressure labile. Patient is hyperaware a bit concerned regarding symptoms of dizziness and fatigue, elevated heart rates. Sought ER evaluation for assessment * Metoprolol discontinued in favor of antiarrhythmic therapy with sotalol which replaces * Oral Diltiazem dose reduced to 120 mg daily as compared to two times per day * Continue Eliquis 5 mg twice per day * Hypothyroidism noted with elevated TSH of 10.6 IU/L normal free T4. * Will tentatively plan for repeat trial of cardioversion on 06/04/25. * At time of previous transesophageal echocardiogram guided direct-current cardioversion on 04/08/2025, patient converted to sinus rhythm briefly but then lapsed back into atrial flutter shortly thereafter after discharge. A second trial of cardioversion took place on 04/19/2025 while on amiodarone and once again patient only maintained sinus rhythm for short amount of time. I spent a total of 50 minutes on the date of service in preparation, delivery, and documentation of the care provided to this patient, excluding any time spent in the performance of separately billed services. Troy Montejo, DO Admission and Anticipated Discharge Date Admission Date: June 01, 2025 Subjective Patient seen in cardiology follow up. Denies subjective heart racing at present. Atrial flutter with ventricular rate of 119 bpm present during my assessment , with the patient having recently finished breakfast. Physical Exam Constitutional: WD/WN, vitals as above no acute distress Eyes: PERRL, conjunctivae normal, anicteric sclerae Neck: trachea midline, no thyromegaly Respiratory: normal respiratory effort, lungs clear to auscultation Cardiovascular: Rate/Rhythm: + tachycardic and + irregularly irregular Heart Sounds: normal S1 and normal S2 Vessels: no JVD Extremities: no edema Gastrointestinal (Abdomen): normal bowel sounds, soft, nontender, no hepatosplenomegaly Musculoskeletal: no cyanosis or clubbing, extremities motor strength 5/5 Results & Data Vital Signs (Past 12 Hours) Vital Signs Temp Pulse Pulse Pulse Resp BP Pulse Ox 06/03/25 07:39 36.7 C 53 L 22 120/76 91 06/03/25 07:15 60 06/03/25 07:15 06/03/25 02:23 36.4 C L 89 18 130/87 96 O2 Del Method 06/03/25 07:39 Room Air 06/03/25 07:15 06/03/25 07:15 Room Air 06/03/25 02:23 Room Air Laboratory Results CBC 06/03/25 Range/Units 06:00 WBC 3.98 L (4.8-10.8) K/ul RBC 3.90 L (4.20-5.40) M/uL Hgb 12.1 (12.0-16.0) g/dl Hct 36.0 L (37.0-47.0) % Plt Count 173 (130-400) K/uL Neut # (Auto) 1.49 (1.40-6.50) K/uL Lymph # (Auto) 1.56 (1.20-3.40) K/uL [place] # (Auto) 0.67 H (0.11-0.59) K/uL Eos # (Auto) 0.21 (0.00-0.50) K/uL Baso # (Auto) 0.04 (0.00-0.20) K/uL Comprehensive Metabolic Panel 06/03/25 Range/Units 06:00 Sodium 139 (136-145) mmol/L Potassium 4.0 (3.5-5.1) mmol/L Chloride 107 (98-107) mmol/L Carbon Dioxide 28 (21-32) mmol/L BUN 17 (6-23) mg/dl Creatinine 1.29 H (0.6-1.2) mg/dl Glucose 103 H (70-99(Fasting)) mg/dl Calcium 9.3 (8.6-10.3) mg/dl Diagnostic Findings EKG performed today 06/03/2025 at 10:15 AM interpreted independently revealed atrial flutter with ventricular rate of 95 bpm, age-indeterminate inferior infarct cannot be excluded, poor R wave progression noted in the precordial leads, no significant repolarization abnormalities. Corrected QT interval normal at 364 ms. Transthoracic echocardiogram performed 04/04/2025 as outpatient: Atrial flutter present at that time with rate of 140 bpm, LVEF of 65 to 69%, moderate left atrial lodgment, moderate mitral regurgitation, mild tricuspid regurgitation Transesophageal echocardiogram performed 04/08/2025: No thrombus in the left atrial appendage, mild to moderate mitral regurgitation , LVEF 55 to 60%, moderate left atrial enlargement Coding Level of Care Code 18029 SUB INP/OBS CARE 350MIN Diagnoses Atypical atrial flutter I48.4 Dizziness R42 Palpitations R00.2
--- NOTE | 2025-06-03 12:21 | Hospitalist Progress Note ---
Date of Service June 03, 2025 Assessment & Plan (1) Atrial flutter with rapid ventricular response: Plan: Atrial Flutter RVR Valvular heart disease H/O moderate mitral regurgitation, mild tricuspid regurgitation Patient presented with elevated heart rate and palpitation for last 48 hours EKG on admission showed atrial fibrillation with ventricular rate of 130 bpm. Known history of A-fib with cardioversion in the past Evaluated by cardiology; discontinued metoprolol. Patient is started on sotalol. Continue on Cardizem. Losartan restarted for high blood pressure. Possible cardioversion in a.m. continue on Eliquis continue telemetry monitoring Subclinical hypothyroidism TSH elevated to 10 with normal free T4 Will hold off on starting levothyroxine at this time given A-fib episode; will need follow-up with PCP and repeat TSH and T4 with consideration of starting low-dose levothyroxine Hypertensive urgency H/O Hypertension - resume losartan, -on metoprolol and sotalol Acute kidney injury-resolved Avoid nephrotoxic agents as able Hold losartan for now Creatinine 1.46 on admission- downtrended Chronic diarrhea H/O intussusception as a child Hold magnesium oxide diarrhea resolved Rheumatoid arthritis Follows with rheumatology as outpatient Continue home medications Hyperlipidemia Continue Lipitor Generalized anxiety disorder Continue duloxetine DVT Px: Eliquis CODE STATUS Full code Time spent evaluating patient, direct bedside care, chart review, placing orders, interpretation of diagnostic studies, discussion with consultants, patient, and family members, as well as other required patient management activities is 50 minutes Please note the above document was generated using voice recognition software. It may contain grammatical, syntax or spelling errors. Any formal questions or concerns about the content, text or information contained within the body of this dictation should be directly addressed to the provider for clarification Admission and Anticipated Discharge Date Admission Date: June 01, 2025 Subjective Patient seen and examined at bedside. She reports she is feeling better overall. Telemetry shows atrial fibrillation with ventricular rate in 70s to 80s Review of Systems Review of Systems: All systems reviewed & are unremarkable except as noted in Subjective Physical Exam Physical Exam: Physical Exam: Vitals signs as noted above General Appearance:Moderately built and nourished, no apparent distress, elderly Respiratory/Chest: Normal breath sounds, CTA, No accessory muscle use Cardiovascular: Irregularly irregular, tachycardic, No murmur Abdomen/GI:Soft, Non tender, Bowel sounds present Extremities/Musculoskeletal:normal inspection, trace lower extremity edema Neurologic/Psych:AAOX3, grossly no focal neurological deficits Skin: normal color, warm Results & Data Results & Data Vital Signs (Past 12 Hours) Vital Signs Temp Pulse Pulse Pulse Resp BP Pulse Ox 06/03/25 11:27 36.5 C 87 22 111/73 95 06/03/25 07:39 36.7 C 53 L 22 120/76 91 06/03/25 07:15 60 06/03/25 07:15 06/03/25 02:23 36.4 C L 89 18 130/87 96 O2 Del Method 06/03/25 11:27 Room Air 06/03/25 07:39 Room Air 06/03/25 07:15 06/03/25 07:15 Room Air 06/03/25 02:23 Room Air
--- NOTE | 2025-06-03 15:21 | Electrocardiogram Report ---
Test Reason : Blood Pressure : */* mmHG Vent. Rate : 130 BPM Atrial Rate : * BPM P-R Int : * ms QRS Dur : 70 ms QT Int : 322 ms P-R-T Axes : * 30 25 degrees QTcB Int : 473 ms Suspect Atrial flutter with 2 to [address] abnormality Abnormal ECG When compared with ECG of 20-Apr-2025 08:03, HR has increased Confirmed by Bruce Pena ([id number]) on 06/03/2025 3:20:28 PM Referred By: Confirmed By: Bruce Pena
--- NOTE | 2025-06-03 15:39 | Electrocardiogram Report ---
Test Reason : Blood Pressure : */* mmHG Vent. Rate : 91 BPM Atrial Rate : 250 BPM P-R Int : * ms QRS Dur : 64 ms QT Int : 360 ms P-R-T Axes : * -4 32 degrees QTcB Int : 442 ms Atrial flutter with variable A-V block Abnormal ECG When compared with ECG of 01-Jun-2025 17:54, (unconfirmed) HR has decreased Confirmed by Bruce Pena ([id number]) on 06/03/2025 3:38:50 PM Referred By: REFERRED SELF Confirmed By: Bruce Pena
[2025-06-03] MEDS ORDERED: NON-FORMULARY MEDICATION SCH (18:15)
[2025-06-04] MEDS ORDERED: PROPOFOL IV EMULSION 10 MG/ML 20 ML VIAL IV ONE (06:57)
[2025-06-04] MEDS ORDERED: LIDOCAINE 2% 2 ML VIAL/AMP(20MG/ML) INFIL ONE (06:57)
--- NOTE | 2025-06-04 07:01 | Anesthesiology Consultation ---
Date of Service June 04, 2025 Assessment & Plan (1) Encounter for pre-operative examination: Chart Review Chart Review: Acceptable Risk for Surgery History Surgery Operation Date: 06/04/25 07:15 Proposed Procedures p Cardioversion Optoelectronics Engineer w/Anesthesia - Josue Montejo DO Height/Weight Height: 5 ft Weight: 65.2 kg Allergies Allergy/AdvReac Type Severity Reaction Status Date / Time latex Allergy Unknown Unknown Verified 04/05/25 19:53 Sulfa (Sulfonamide Allergy Unknown Unknown Verified 04/05/25 19:53 Antibiotics) Medications Home Medications Medication Instructions Recorded Confirmed Last Taken adalimumab 40 mg/0.4 mL 40 mg subcut DIRECTED 04/05/25 06/01/25 Unknown subcutaneous pen kit (Humira(CF) Pen) atorvastatin 40 mg tablet 40 mg PO DAILY 04/05/25 06/01/25 Unknown cranberry 1 tab PO DAILY ##0 04/05/25 06/01/25 Unknown duloxetine 30 mg capsule,delayed 30 mg PO DAILY 04/05/25 06/01/25 Unknown release folic acid 1 mg tablet 1 mg PO DAILY 04/05/25 06/01/25 Unknown hydroxyzine HCl 25 mg tablet 50 mg PO HS PRN Hives 04/05/25 06/01/25 Unknown leflunomide 20 mg tablet (Arava) 20 mg PO DAILY 04/05/25 06/01/25 Unknown losartan 50 mg tablet 25 mg PO DAILY 04/05/25 06/01/25 Unknown magnesium 400 tab PO DAILY 04/05/25 06/01/25 Unknown prednisone 5 mg tablet 5 mg PO DAILY PRN Other 04/05/25 06/01/25 Unknown apixaban 5 mg tablet (Eliquis) 5 mg PO BID 06/01/25 06/01/25 Unknown diltiazem HCl 120 mg 120 mg PO BID 06/01/25 06/01/25 Unknown capsule,extended release 24 hr metoprolol succinate 50 mg 100 mg PO DAILY 06/01/25 06/01/25 Unknown tablet,extended release 24 hr Active Medications Generic Name Dose Route Start Last Admin Trade Name Freq PRN Reason Stop Dose Admin Apixaban 5 mg 06/01/25 21:24 06/04/25 06:38 Apixaban 5 Mg Tablet PO 07/01/25 21:23 5 mg BID MITESH Administration Atorvastatin Calcium 40 mg 06/02/25 09:00 06/03/25 07:28 Atorvastatin 40 Mg Tab PO 07/02/25 08:59 40 mg DAILY MITESH Administration Diltiazem HCl 120 mg 06/02/25 09:30 06/03/25 07:27 Diltiazem Hcl 120 Mg Capcr PO 07/02/25 09:29 120 mg QAM MITESH Administration Duloxetine HCl 30 mg 06/02/25 09:00 06/03/25 07:28 Duloxetine Hcl 30 Mg Cap PO 07/02/25 08:59 30 mg DAILY MITESH Administration Folic Acid 1 mg 06/02/25 09:00 06/03/25 07:28 Folic Acid 1 Mg Tab PO 07/02/25 08:59 1 mg DAILY MITESH Administration Leflunomide 20 mg 06/02/25 09:00 06/03/25 07:27 Leflunomide 10 Mg Tab PO 07/02/25 08:59 20 mg DAILY MITESH Administration Losartan Potassium 25 mg 06/02/25 09:45 06/03/25 07:26 Losartan Potassium 25 Mg Tab PO 07/02/25 09:44 25 mg QAM MITESH Administration Sotalol HCl 80 mg 06/02/25 09:30 06/04/25 06:31 Sotalol Hcl 80 Mg Tab PO 07/02/25 09:29 80 mg BID MITESH Administration Past Medical History Medical History (Updated 06/04/25 @ 07:03 by Isaias Betancourt MD) Acute kidney injury mild Anxiety History of cardioversion Atypical atrial flutter HLD (hyperlipidemia) HTN (hypertension) Atrial flutter with rapid ventricular response Rheumatoid arthritis Past Surgical History Surgical History (Updated 06/04/25 @ 06:57 by Isaias Betancourt MD) History of transesophageal echocardiography (RAJAN) No pertinent past surgical history Social History Smoking Status: Never smoker Do You Dip or Chew Tobacco: No Hx Alcohol Use: No Hx Substance Use: No substance use type: does not use Physical Exam Vital Signs Last Vital Signs Temp 36.5 C 06/04/25 03:04 Pulse 117 H 06/04/25 03:04 Resp 20 06/04/25 03:04 BP 112/88 06/04/25 03:04 Pulse Ox 95 06/04/25 03:04 O2 Del Method Room Air 06/04/25 03:04 Testing Laboratory Results 06/03/25 06:00 06/03/25 06:00 Laboratory Tests 06/02/25 06/03/25 03:57 06:00 Hgb 12.1 Plt Count 173 Potassium 4.0 Creatinine 1.29 H Free T4 0.65 Echocardiogram Date: 04/04/25 EF: 65-69% LV Function: normal Other Findings: + atrial enlargement (moderate) and + LVH (borderline) Valvular Disease: + MR (moderate)
--- NOTE | 2025-06-04 07:16 | History & Physical Bridge Note ---
Date of Service June 04, 2025 History & Physical Bridge Note I have examined the patient, reviewed the History & Physical and in the interval since the performance of the History & Physical I have noted the following changes of clinical significance: no changes noted. Informed consent for cardioversion obtained. Patient elects to proceed.
--- NOTE | 2025-06-04 07:40 | Cardioversion ---
Date of Service June 04, 2025 PG Electrical Cardioversion Rp Electrical Cardioversion Report Preprocedure diagnosis: Recurrent symptomatic atrial flutter with rapid ventricular response Postprocedure diagnosis: Successful conversion to sinus rhythm Procedure Direct-current cardioversion procedure note: The patient's vital signs were monitored via the standard fashion. After informed consent obtained a timeout was performed the patient was sedated with the assistance of the anesthesia service receiving a total of 30 mg of IV propofol and 40 mg of IV lidocaine. The patient then underwent direct-current cardioversion receiving a single dose of 150 J of synchronized biphasic energy with successful conversion to sinus bradycardia in the 50s. Immediately after the cardioversion complex atrial ectopy was observed. 2.5 mg of IV metoprolol was therefore administered over 5- minute interval to help maintain sinus rhythm. Phone Circuit Operator Josue Montejo DO Jewel Stripper none Estimated Blood Loss 0 Findings as noted above Anesthesia Type MAC Complications none C[place] [address] CARDIOVERSION, ELECTIVE Patient Type Established Additional Codes Electrical Cardioversion Report ([id number]) Time Spent (min) 40
--- NOTE | 2025-06-04 07:54 | Cardiology Progress Note ---
Date of Service June 04, 2025 Assessment & Plan (1) Atypical atrial flutter: (2) Dizziness: (3) Palpitations: Plan Patient with symptomatic atrial flutter with difficult to control ventricular response rates. Blood pressure labile. Patient is hyperaware a bit concerned regarding symptoms of dizziness and fatigue, elevated heart rates. Sought ER evaluation for assessment Patient underwent DCCV this am receiving 150 J of synchronized biphasic energy. Post cardioversion EKG interpreted independently: Sinus bradycardia 56 bpm with first-degree AV block, [place] interval 216 ms. The corrected QT interval is normal at 420 ms. Continue sotalol 80 mg twice daily for now with future considerations to titrate to 120 mg twice daily as heart rate/blood pressure, QT interval allow. Continue diltiazem CD 120 mg daily with hold for heart rate less than 60 bpm, systolic blood pressure less than 100 mmHg. Continue Eliquis without interruption. Patient to remain in the hospital on telemetry as she is due for dose #6 of sotalol this evening at 2100. Will be reassessed tomorrow 06/05/2025. Troy Montejo DO Admission and Anticipated Discharge Date Admission Date: June 01, 2025 Subjective Patient seen prior to, during and after cardioversion. Remained in AFL with rate in the 110s overnight. Physical Exam Constitutional: WD/WN, vitals as above no acute distress Eyes: PERRL, conjunctivae normal, anicteric sclerae Neck: trachea midline, no thyromegaly Respiratory: normal respiratory effort, lungs clear to auscultation Cardiovascular: Rate/Rhythm: + tachycardic and + irregularly irregular Heart Sounds: normal S1 and normal S2 Vessels: no JVD Extremities: no edema Gastrointestinal (Abdomen): normal bowel sounds, soft, nontender, no hepatosplenomegaly Musculoskeletal: no cyanosis or clubbing, extremities motor strength 5/5 Results & Data Vital Signs (Past 12 Hours) Vital Signs Temp Pulse Resp BP BP Pulse Ox Pulse Ox 06/04/25 07:45 56 L 18 107/68 98 06/04/25 07:15 120 H 18 118/90 96 06/04/25 06:50 06/04/25 03:04 36.5 C 117 H 20 112/88 95 06/03/25 22:55 36.9 C 117 H 20 136/94 95 06/03/25 21:00 94 O2 Del Method O2 Del Method 06/04/25 07:45 Room Air 06/04/25 07:15 Room Air 06/04/25 06:50 Room Air 06/04/25 03:04 Room Air 06/03/25 22:55 Room Air 06/03/25 21:00 Room Air Laboratory Results Intake and Output 06/03/25 06/04/25 06/04/25 22:59 06:59 14:59 Other: Other Intake Source NPO # Unmeasured Voids 1 Weight 65.2 kg 65.2 kg Weight Measurement Method [facility] Patient Weight 06/05/25 06:59 Weight 65.2 kg PG Care Time/CCT Total # of Minutes Spent Total Time Spent with Patient: Total time spent is greater than 50% in coordination of care (as documented) at patient's floor/unit and/or counseling patient: Coding [place] [address] SUB INP/OBS CARE 2/35MIN Patient Type Established History Comprehensive Exam Comprehensive Medical Decision Making High Complexity Diagnoses Atypical atrial flutter I48.4 Dizziness R42 Palpitations R00.2
[2025-06-04] MEDS: METOPROLOL TARTRATE 1 MG/ML VIAL IV ONE (08:23)
[2025-06-04] MEDS: METOPROLOL TARTRATE 1 MG/ML VIAL IV STA (08:23)
--- NOTE | 2025-06-04 10:05 | Anesthesiology Progress Note ---
Date of Service June 04, 2025 Anesthesia Post Procedure Vital Signs Vital Signs: Temp Pulse Pulse Pulse Resp BP BP 06/04/25 09:17 59 L 06/04/25 08:24 36.6 C 63 15 111/77 06/04/25 07:51 57 L 18 100/64 06/04/25 07:45 56 L 18 107/68 06/04/25 07:15 120 H 18 118/90 06/04/25 07:00 119 H 06/04/25 06:50 06/04/25 03:04 36.5 C 117 H 20 112/88 06/03/25 22:55 36.9 C 117 H 20 136/94 06/03/25 21:00 06/03/25 19:35 36.6 C 124 H 20 137/97 06/03/25 15:59 36.7 C 101 H 21 122/86 06/03/25 15:34 89 06/03/25 11:27 36.5 C 87 22 111/73 Pulse Ox Pulse Ox O2 Del Method O2 Del Method 06/04/25 09:17 06/04/25 08:24 95 Room Air 06/04/25 07:51 96 Room Air 06/04/25 07:45 98 Room Air 06/04/25 07:15 96 Room Air 06/04/25 07:00 06/04/25 06:50 Room Air 06/04/25 03:04 95 Room Air 06/03/25 22:55 95 Room Air 06/03/25 21:00 94 Room Air 06/03/25 19:35 96 Room Air 06/03/25 15:59 94 Room Air 06/03/25 15:34 06/03/25 11:27 95 Room Air Pain Intensity Chest: Pain Intensity: 5 Transfer of Care Handoff Completed per policy Notes Mental Status: alert / awake / arousable Patient Amnestic to Procedure: Yes Nausea / Vomiting: adequately controlled Pain: adequately controlled Airway Patency, RR, SpO2: stable & adequate BP & HR: stable & adequate Hydration State: stable & adequate Anesthetic Complications: no major complications apparent
[2025-06-04] MEDS: SOTALOL HCL 80 MG TAB PO ONE (10:52)
--- NOTE | 2025-06-04 10:59 | Hospitalist Progress Note ---
Date of Service June 04, 2025 Assessment & Plan (1) Atrial flutter with rapid ventricular response: Plan: Atrial Flutter RVR Valvular heart disease H/O moderate mitral regurgitation, mild tricuspid regurgitation Patient presented with elevated heart rate and palpitation for last 48 hours EKG on admission showed atrial fibrillation with ventricular rate of 130 bpm. Known history of A-fib with cardioversion in the past During the hospitalization, patient was started on sotalol 80 mg twice a day; she underwent cardioversion on 06/04 successfully. Currently, she is on sotalol 120 mg twice a day. continue on telemetry Continue to monitor on telemetry overnight; possible DC in a.m. Subclinical hypothyroidism TSH elevated to 10 with normal free T4 Will hold off on starting levothyroxine at this time given A-fib episode; will need follow-up with PCP and repeat TSH and T4 with consideration of starting low-dose levothyroxine Hypertensive urgency H/O Hypertension - resume losartan, -on cardizem and sotalol Acute kidney injury-resolved Avoid nephrotoxic agents as able Creatinine 1.46 on admission- downtrended Chronic diarrhea H/O intussusception as a child Hold magnesium oxide diarrhea resolved Rheumatoid arthritis Follows with rheumatology as outpatient Continue home medications Hyperlipidemia Continue Lipitor Generalized anxiety disorder Continue duloxetine DVT Px: Eliquis CODE STATUS Full code Time spent evaluating patient, direct bedside care, chart review, placing orders, interpretation of diagnostic studies, discussion with consultants, ashtyn ent, and family members, as well as other required patient management activities is 50 minutes Please note the above document was generated using voice recognition software. It may contain grammatical, syntax or spelling errors. Any formal questions or concerns about the content, text or information contained within the body of this dictation should be directly addressed to the provider for clarification Admission and Anticipated Discharge Date Admission Date: June 01, 2025 Subjective Patient underwent cardioversion today am. Currently maintaining sinus rhythm. She denies any chest pain or discomfort at this time Review of Systems Review of Systems: All systems reviewed & are unremarkable except as noted in Subjective Physical Exam Physical Exam: Constitutional: WD/WN, vitals as above, NAD, sitting up in bed, pleasant, conversing easily Respiratory: normal respiratory effort, lungs clear to auscultation, no wheeze, rales, rhonchi. Normal insp/exp effort, no accessory muscle use Cardiovascular: RRR, no murmur, no edema Vessels: no JVD or carotid bruit Chest: normal inspection of chest Abdomen: normal bowel sounds, soft, nontender, no hepatosplenomegaly Musculoskeletal: no cyanosis or clubbing, extremities motor strength 5/5 Skin: no rashes, warm and dry normal turgor Neurologic: PERRL, EOMI, accommodation nl, no face palsy, no dysarthria CN's II- XI intact bilaterally and moves all extremities Psychiatric: A+Ox3, euthymic affect Results & Data Results & Data Vital Signs (Past 12 Hours) Vital Signs Temp Pulse Pulse Pulse Resp BP BP 06/04/25 09:17 59 L 06/04/25 08:24 36.6 C 63 15 111/77 06/04/25 07:51 57 L 18 100/64 06/04/25 07:45 56 L 18 107/68 06/04/25 07:15 120 H 18 118/90 06/04/25 07:00 119 H 06/04/25 06:50 06/04/25 03:04 36.5 C 117 H 20 112/88 06/03/25 22:55 36.9 C 117 H 20 136/94 Pulse Ox O2 Del Method 06/04/25 09:17 06/04/25 08:24 95 Room Air 06/04/25 07:51 96 Room Air 06/04/25 07:45 98 Room Air 06/04/25 07:15 96 Room Air 06/04/25 07:00 06/04/25 06:50 Room Air 06/04/25 03:04 95 Room Air 06/03/25 22:55 95 Room Air
[2025-06-04 15:10] LABS: Hematocrit (blood only) 33.1 % (37.0-47.0); Hemoglobin 10.8 g/dl (12.0-16.0); Immature Granulocytes # (auto) 0.02 K/uL (0.01-0.20); Immature Granulocytes % (auto) 0.4 %; Mean Corpuscular Hemoglobin 30.2 pg (25.0-34.0); Mean Corpuscular Volume 92.5 fL (80.0-100.0); Platelet Count 184 K/uL (130-400); RDW Standard Deviation 49.8 fL (36.4-46.3); Red Blood Count 3.58 M/uL (4.20-5.40); White Blood Count 4.46 K/ul (4.8-10.8)
[2025-06-04 15:25] LABS: Anion Gap 5.0 (3-11); Blood Urea Nitrogen 22.0 mg/dl (6-23); Calcium 8.8 mg/dl (8.6-10.3); Carbon Dioxide 25.0 mmol/L (21-32); Chloride 106.0 mmol/L (98-107); Creatinine Clr Calc Pharmacy 27.5 ml/min; Glucose 87.0 mg/dl (70-99(Fasting)); Potassium 4.0 mmol/L (3.5-5.1); Sodium 136.0 mmol/L (136-145)
[2025-06-04] MEDS: SOTALOL HCL 80 MG TAB PO SCH (20:13)
[2025-06-05 07:35] VITALS: RESP 18
[2025-06-05 08:38] VITALS: PULSE 55
--- NOTE | 2025-06-05 09:51 | Cardiology Progress Note ---
Date of Service June 05, 2025 Assessment & Plan (1) Atypical atrial flutter: (2) Dizziness: (3) Palpitations: Plan Patient with symptomatic atrial flutter with difficult to control ventricular response rates. Blood pressure labile. Patient is hyperaware a bit concerned regarding symptoms of dizziness and fatigue, elevated heart rates. Sought ER evaluation for assessment Patient underwent DCCV this 06/04/25 receiving 150 J of synchronized biphasic energy. Post cardioversion EKG interpreted independently: Sinus bradycardia 56 bpm with first-degree AV block, [place] interval 216 ms. The corrected QT interval is normal at 420 ms. Continue sotalol 120 mg twice daily for now with future considerations to titrate to 120 mg twice daily as heart rate/blood pressure, QT interval allow. Continue diltiazem CD 120 mg daily (reduced from OIL AND GAS EXPLORATION TECHNICIAN BID dosing) with hold for heart rate less than 60 bpm, systolic blood pressure less than 100 mmHg. Continue Eliquis without interruption. Continue OIL AND GAS EXPLORATION TECHNICIAN dose of losartan 25 mg daily. --Repeat EKG this morning at 11:27 am, 2 hours after am dose of sotalol to reassess QTc. If findings are stable will plan to discharge on medication plan as outlined above . Sotalol replaces metoprolol. Diltiazem CD 120 mg once daily as compared to twice daily. Troy Montejo DO Admission and Anticipated Discharge Date Admission Date: June 01, 2025 Jered Solano is seen in cardiology follow up. Feels well. No palpitations. Telemetry reveals sinus rhythm in the 50s to 60s overnight with rare PACs. Physical Exam Constitutional: WD/WN, vitals as above no acute distress Eyes: PERRL, conjunctivae normal, anicteric sclerae Neck: trachea midline, no thyromegaly Respiratory: normal respiratory effort, lungs clear to auscultation Cardiovascular: Rate/Rhythm: + tachycardic and + irregularly irregular Heart Sounds: normal S1 and normal S2 Vessels: no JVD Extremities: no edema Gastrointestinal (Abdomen): normal bowel sounds, soft, nontender, no hepatosplenomegaly Musculoskeletal: no cyanosis or clubbing, extremities motor strength 5/5 Results & Data Vital Signs (Past 12 Hours) Vital Signs Temp Pulse Pulse Resp BP BP Pulse Ox 06/05/25 08:36 55 L 06/05/25 07:33 36.7 C 58 L 18 130/82 92 06/05/25 04:11 36.4 C L 51 L 16 134/79 95 06/04/25 23:00 36.6 C 55 L 18 102/61 96 O2 Del Method 06/05/25 08:36 06/05/25 07:33 Room Air 06/05/25 04:11 Room Air 06/04/25 23:00 Room Air Laboratory Results CBC 06/04/25 Range/Units 14:41 WBC 4.46 L (4.8-10.8) K/ul RBC 3.58 L (4.20-5.40) M/uL Hgb 10.8 L (12.0-16.0) g/dl Hct 33.1 L (37.0-47.0) % Plt Count 184 (130-400) K/uL Neut # (Auto) 1.86 (1.40-6.50) K/uL Lymph # (Auto) 1.55 (1.20-3.40) K/uL [place] # (Auto) 0.80 H (0.11-0.59) K/uL Eos # (Auto) 0.19 (0.00-0.50) K/uL Baso # (Auto) 0.04 (0.00-0.20) K/uL Comprehensive Metabolic Panel 06/04/25 Range/Units 14:41 Sodium 136 (136-145) mmol/L Potassium 4.0 (3.5-5.1) mmol/L Chloride 106 (98-107) mmol/L Carbon Dioxide 25 (21-32) mmol/L BUN 22 (6-23) mg/dl Creatinine 1.33 H (0.6-1.2) mg/dl Glucose 87 (70-99(Fasting)) mg/dl Calcium 8.8 (8.6-10.3) mg/dl Intake and Output 06/04/25 06/05/25 06/05/25 22:59 06:59 14:59 Intake Total 300 / 800 250 / 800 Balance 300 / 797 250 / 797 Intake: Oral 300 / 800 250 / 800 Other: # Unmeasured Voids 2 2 Weight 65.4 kg Weight Measurement Method Built in [facility] Care Time/CCT Total # of Minutes Spent Total Time Spent with Patient: Total time spent is greater than 50% in coordination of care (as documented) at patient's floor/unit and/or counseling patient: Coding Level of Care Code 93683 SUB INP/OBS CARE 3/50MIN Diagnoses Atypical atrial flutter I48.4 Dizziness R42 Palpitations R00.2
[2025-06-05 11:08] VITALS: TEMP 97.5; O2SAT 97
--- NOTE | 2025-06-05 12:05 | Discharge Summary ---
Date of Service June 05, 2025 Admission HPI Per Admitting Provider Patient is a 84-year-old female with history of rheumatoid arthritis, atrial flutter, polymyalgia rheumatica, GERD, generalized anxiety disorder, dyslipidemia, hypertension, CKD stage III and other medical problems presents with history of elevated heart rate. Patient states that she has been monitoring her heart rate since hospitalization. She was concerned that her heart rate has been persistently elevated for the last 2 days and so came to ED for further evaluation. She states that she has been taking her medications regularly. 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 Reports chronic dizziness predominantly with positional change which is unchanged. She also states having excess sweating over the past 2 days. Reports chronic diarrhea which is unchanged. Denies any history of chest pain, palpitations, shortness of breath, syncopal episode, cough, wheezing, hemoptysis, fever, chills, fall, headache, weakness, nausea, vomiting, abdominal pain, diarrhea, dysuria, hematuria. Admission Exam Per Admitting Provider Physical Exam: Vitals signs as noted above General Appearance:Moderately built and nourished, no apparent distress, elderly Head: normocephalic, Atraumatic Eyes: normal inspection, EOMI Neck: supple, Trachea midline Respiratory/Chest: Normal breath sounds, CTA, No accessory muscle use Cardiovascular: Irregularly irregular, tachycardic, No murmur Abdomen/GI:Soft, Non tender, Bowel sounds present Extremities/Musculoskeletal:normal inspection, trace lower extremity edema Neurologic/Psych:AAOX3, grossly no focal neurological deficits Skin: normal color, warm Principal Diagnosis Atrial Flutter RVR Valvular heart disease H/O moderate mitral regurgitation, mild tricuspid regurgitation Subclinical hypothyroidism Discharge Exam Constitutional: WD/WN, vitals as above, NAD, sitting up in bed, pleasant, conversing easily Respiratory: normal respiratory effort, lungs clear to auscultation, no wheeze, rales, rhonchi. Normal insp/exp effort, no accessory muscle use Cardiovascular: RRR, no murmur, no edema Vessels: no JVD or carotid bruit Chest: normal inspection of chest Abdomen: normal bowel sounds, soft, nontender, no hepatosplenomegaly Musculoskeletal: no cyanosis or clubbing, extremities motor strength 5/5 Skin: no rashes, warm and dry normal turgor Neurologic: PERRL, EOMI, accommodation nl, no face palsy, no dysarthria CN's II- XI intact bilaterally and moves all extremities Psychiatric: A+Ox3, euthymic affect Discharge Data Allergies Allergy/AdvReac Type Severity Reaction Status Date / Time latex Allergy Unknown Unknown Verified 04/05/25 19:53 Sulfa (Sulfonamide Allergy Unknown Unknown Verified 04/05/25 19:53 Antibiotics) Consultations 06/01/25 19:17 ED Decision to Admit Stat 06/02/25 07:00 Consult Cardiology Routine 06/03/25 10:58 Consult Anesthesiology Routine Procedures Performed Operation Date: 06/04/25 07:15 Actual Procedures p Cardioversion - Josue Montejo DO Hospital Course (1) Atrial flutter with rapid ventricular response: Per prior attending w/ addendum: Atrial Flutter RVR Valvular heart disease H/O moderate mitral regurgitation, mild tricuspid regurgitation Patient presented with elevated heart rate and palpitation for last 48 hours EKG on admission showed atrial fibrillation with ventricular rate of 130 bpm. Known history of A-fib with cardioversion in the past During the hospitalization, patient was started on sotalol 80 mg twice a day; she underwent cardioversion on 06/04 successfully. Currently, she is on sotalol 120 mg twice a day. continue on telemetry Continue to monitor on telemetry overnight; possible DC in a.m. Subclinical hypothyroidism TSH elevated to 10 with normal free T4 Will hold off on starting levothyroxine at this time given A-fib episode; will need follow-up with PCP and repeat TSH and T4 with consideration of starting low-dose levothyroxine Hypertensive urgency H/O Hypertension - resume losartan, -on cardizem and sotalol Acute kidney injury-resolved Avoid nephrotoxic agents as able Creatinine 1.46 on admission- downtrended Chronic diarrhea H/O intussusception as a child Hold magnesium oxide diarrhea resolved Rheumatoid arthritis Follows with rheumatology as outpatient Continue home medications Hyperlipidemia Continue Lipitor Generalized anxiety disorder Continue duloxetine DVT Px: Eliquis CODE STATUS Full code Addendum 06/05/2025: Patient was seen and examined at bedside. Patient hem odynamically stable. Case was discussed with cardiology, repeat EKG reviewed and patient deemed stable to be discharged from cardiology perspective. Patient denies any shortness of breath or chest pain or palpitation. She is being discharged with following instructions at the point of discharge: Follow-up with your primary care physician within a week time and likely you will need labs CBC/CMP/magnesium/phosphorus. Your cardiac medications has been optimized, cardiology evaluated you while in the hospital. Follow-up with cardiology in 2 to 4 weeks time upon discharge. You were noted to have subclinical hypothyroidism. Recommend that repeat your thyroid function test in about 4 to 6 weeks time and get further evaluated for need for thyroid medication. Coordinate with your PCP office to set up the test. Take your medications as prescribed. Please make sure that you are able to get your medications today by calling your pharmacy before you leave the hospital so that your treatment continuity is not broken. Please note the above document was generated using voice recognition software. It may contain grammatical, syntax or spelling errors. Any formal questions or concerns about the content, text or information contained within the body of this dictation should be directly addressed to the provider for clarification Home Health Attestation I certify that this patient is under my care and that I, or a physicians expanded function dental assistant working with me, had a face to-face encounter that meets the [facility] [id number] encounter requirements with this patient. The encounter with the patient was in whole, or in part, for the following medical condition, which is the primary reason for home health care (list medical condition): I certify that, based on my findings, the following services are medically necessary home health services: My clinical findings support the need for the above services because: Further, I certify that my clinical findings support that this patient is homebound (i.e. absences from home require considerable and taxing effort and are for medical reasons or [employer] services or infrequently or of short duration when for other reasons) because: Certification for Home Health Services: Based on the above findings, I certify that this patient is confined to the home and needs intermittent longterm care, physical therapy and/or speech therapy or continues to need occupational therapy. The patient is under my care, and I have initiated the establishment of the plan of care. This patient will be followed by a physician who will periodically review the plan of care. Total Time Total Time Spent Total Time Spent (In Minutes): 35 Discharge Plan Discharge Items Patient Disposition: Home - Self-Care Reason For Visit: ATRIAL FLUTTER RVR Discharge Diagnosis: Atrial Flutter RVR Valvular heart disease H/O moderate mitral regurgitation, mild tricuspid regurgitation Subclinical hypothyroidism Condition on Discharge: Fair Activity: Resume your previous activity Non-emergency contact: Primary Care Provider Call non-emergency contact if: you have any medication questions and your symptoms worsen Follow-up/Referrals: Josue Montejo DO [Inspector Filters] - (Date & Time 06/11/2025 11:00 AM Provider: Josue Montejo DO Cardiology, [facility] ) Tila Burns MD [Primary Care Provider] - (Date & Time 06/10/2025 12:20 PM Provider: Nikos Muñiz MD Family Medicine [facility] ) Diet: Heart Healthy Addtl Attending Provider Instructions: Follow-up with your primary care physician within a week time and likely you will need labs CBC/CMP/magnesium/phosphorus. Your cardiac medications has been optimized, cardiology evaluated you while in the hospital. Follow-up with cardiology in 2 to 4 weeks time upon discharge. You were noted to have subclinical hypothyroidism. Recommend that repeat your thyroid function test in about 4 to 6 weeks time and get further evaluated for need for thyroid medication. Coordinate with your PCP office to set up the te st. Take your medications as prescribed. Please make sure that you are able to get your medications today by calling your pharmacy before you leave the hospital so that your treatment continuity is not broken. Pending Studies at Discharge: No Stand-Alone Forms: My [facility] [employer], Smoking Cessation Medications and DC Order Prescriptions: New sotalol 80 mg Tablet 120 mg PO BID Qty: 90 0RF diltiazem HCl [Cardizem CD] 120 mg Capsule,Extended Release 24hr 120 mg PO QAM Qty: 30 0RF Continued Eliquis 5 mg tablet 5 mg PO BID losartan 50 mg tablet 25 mg PO DAILY atorvastatin 40 mg tablet 40 mg PO DAILY Patient Comments: original: 40mg po daily. per pt she doesnt take medication everyday prednisone 5 mg tablet 5 mg PO DAILY PRN (Reason: Other) leflunomide [Arava] 20 mg tablet 20 mg PO DAILY hydroxyzine HCl 25 mg tablet 50 mg PO HS PRN (Reason: Hives) Patient Comments: per pt she takes 3 tabs (75mg) instead of 2 tabs (50mg) duloxetine 30 mg capsule,delayed release(DR/EC) 30 mg PO DAILY Humira(CF) Pen 40 mg/0.4 mL pen injector kit 40 mg subcut DIRECTED Rx Instructions: every other tuesday folic acid 1 mg tablet 1 mg PO DAILY cranberry 1 tab PO DAILY Qty: 0 Patient Comments: 04/18-otc unknown dose magnesium 400 tab PO DAILY Patient Comments: 04/18-otc unknown dose Discontinued metoprolol succinate 50 mg tablet extended release 24 hr 100 mg PO DAILY diltiazem HCl 120 mg capsule,extended release 24hr 120 mg PO BID Discharge Orders: Discharge Order (Routine); Ordered 06/05/25 Ordered By: Clotilde Cohen Admission Data Admit Date/Time: 06/01/25 19:36 Attending Provider: Clotilde Cohen Admit Provider: Eleazar Sheikh Primary Care Provider: Tila Burns Other Providers: Eleazar Sheikh; Jos Freire; Emeka Mackay.
[2025-06-05 12:29] VITALS: BP 130/82
--- NOTE | 2025-06-07 13:14 | Electrocardiogram Report ---
Test Reason : Blood Pressure : */* mmHG Vent. Rate : 62 BPM Atrial Rate : 250 BPM P-R Int : * ms QRS Dur : 64 ms QT Int : 380 ms P-R-T Axes : -25 -15 5 degrees QTcB Int : 385 ms Atrial flutter with 4:1 A-V conduction Septal infarct , age undetermined Inferior infarct , age undetermined Abnormal ECG When compared with ECG of 02-Jun-2025 03:48, (unconfirmed) Septal infarct is now Present Inferior infarct is now Present Confirmed by Bruce Pena ([id number]) on 06/07/2025 1:13:38 PM Referred By: REFERRED SELF Confirmed By: Bruce Pena
--- NOTE | 2025-06-07 13:26 | Electrocardiogram Report ---
Test Reason : Blood Pressure : */* mmHG Vent. Rate : 88 BPM Atrial Rate : 234 BPM P-R Int : * ms QRS Dur : 68 ms QT Int : 386 ms P-R-T Axes : * 18 52 degrees QTcB Int : 467 ms Atrial flutter with variable A-V block Low voltage QRS Abnormal ECG When compared with ECG of 02-Jun-2025 18:39, (unconfirmed) Criteria for Septal infarct are no longer Present Confirmed by Bruce Pena ([id number]) on 06/07/2025 1:26:06 PM Referred By: REFERRED SELF Confirmed By: Bruce Pena
--- NOTE | 2025-06-07 13:51 | Electrocardiogram Report ---
Test Reason : Blood Pressure : */* mmHG Vent. Rate : 95 BPM Atrial Rate : 234 BPM P-R Int : * ms QRS Dur : 70 ms QT Int : 290 ms P-R-T Axes : * 0 2 degrees QTcB Int : 364 ms Atrial flutter with variable A-V block Possible Inferior infarct , age undetermined Cannot rule out Anterior infarct , age undetermined Abnormal ECG When compared with ECG of 03-Jun-2025 06:20, (unconfirmed) Nonspecific T wave abnormality, worse in Anterolateral leads Confirmed by Bruce Pena ([id number]) on 06/07/2025 1:51:30 PM Referred By: REFERRED SELF Confirmed By: Bruce Pena
--- NOTE | 2025-06-07 14:56 | Electrocardiogram Report ---
Test Reason : Blood Pressure : */* mmHG Vent. Rate : 56 BPM Atrial Rate : 56 BPM P-R Int : 216 ms QRS Dur : 66 ms QT Int : 436 ms P-R-T Axes : 81 24 65 degrees QTcB Int : 420 ms Sinus bradycardia with 1st degree A-V block Low voltage QRS Borderline ECG When compared with ECG of 04-Jun-2025 06:04, (unconfirmed) Sinus rhythm has replaced Atrial flutter Vent. rate has decreased by 63 bpm Confirmed by Bruce Pena ([id number]) on 06/07/2025 2:56:26 PM Referred By: REFERRED SELF Confirmed By: Bruce Pena
--- NOTE | 2025-06-07 15:01 | Electrocardiogram Report ---
Test Reason : Blood Pressure : */* mmHG Vent. Rate : 119 BPM Atrial Rate : * BPM P-R Int : * ms QRS Dur : 68 ms QT Int : 332 ms P-R-T Axes : * -3 20 degrees QTcB Int : 467 ms Atrial flutter with 2 to [address] and T wave abnormality Abnormal ECG When compared with ECG of 03-Jun-2025 10:15, (unconfirmed) Nonspecific T wave abnormality, improved in Lateral leads Confirmed by Bruce Pena ([id number]) on 06/07/2025 3:01:26 PM Referred By: REFERRED SELF Confirmed By: Bruce Pena
--- NOTE | 2025-06-07 15:13 | Electrocardiogram Report ---
Test Reason : Blood Pressure : */* mmHG Vent. Rate : 58 BPM Atrial Rate : 58 BPM P-R Int : 208 ms QRS Dur : 66 ms QT Int : 450 ms P-R-T Axes : 68 -2 20 degrees QTcB Int : 441 ms Sinus bradycardia Possible Inferior infarct , age undetermined Abnormal ECG When compared with ECG of 04-Jun-2025 07:41, (unconfirmed) Nonspecific T wave abnormality now evident in Inferior leads Confirmed by Bruce Pena ([id number]) on 06/07/2025 3:13:05 PM Referred By: REFERRED SELF Confirmed By: Bruce Pena
== END 2025-06-05 14:43 | disposition home or self-care (01) | DRG 309 ==
LOC: ED 17:44 → SUATTDRO 19:36 → 2S 19:36